=== PATIENT | female | born 1950 | race Caucasian/White ===

== ENCOUNTER 2016-09-10 08:54 | Emergency (ER) | payer BC ==
[2016-09-10 09:04] VITALS: BP 136/65; PULSE 63; RESP 18; TEMP 98.4
--- NOTE | 2016-09-10 09:13 | ED ---
Upper Extremity HPI - General Chief Complaint: Extremity Injury, Upper Stated Complaint: Fall Time Seen by Provider: 09/10/16 09:08 Source: patient, RN notes reviewed Mode of arrival: ambulatory Limitations: no limitations - History of Present Illness Initial Comments: 65-year-old female presents to the emergency department with a chief complaint of left wrist pain. Patient states that she tripped and fell on . Patient states that she fell onto an outstretched hand. Patient states she was in A home she is histrionic a sprain and then today started to hurt more over the radial aspect of the wrist. Patient states started to touch and movement. Patient denies any other injuries from the incident. Patient states he was a simple trip and fall there is no lightheadedness or dizziness before the fall. Patient states that she was concerned due to her worsening continued pain so she thought that she should be evaluated. Patient denies any recent fever, chills, shortness of breath, chest pain, back pain, abdominal pain, nausea vomiting, numbness or tingling, dysuria or hematuria, constipation or diarrhea, headaches or visual changes, or any other current symptoms. - Related Data Previous Rx's Medication Instructions Recorded Hydrocodone/Acetaminophen [Yeaddiss 1 each PO Q6HR PRN #20 tab 09/10/16 5-325] Allergies Allergy/AdvReac Type Severity Reaction Status Date / Time No Known Allergies Allergy Verified 09/10/16 09:04 Review of Systems ROS Statement: Those systems with pertinent positive or pertinent negative responses have been documented in the HPI. ROS Other: All systems not noted in ROS Statement are negative. Past Medical History Past Medical History: Hypertension, Thyroid Disorder History of Any Multi-Drug Resistant Organisms: None Reported Past Surgical History: Cholecystectomy, Hysterectomy Additional Past Surgical History / Comment(s): bilateral knee replacement, lap band, hip replacement Past Psychological History: No Psychological Hx Reported Smoking Status: Former smoker Past Alcohol Use History: None Reported Past Drug Use History: None Reported General Exam - General Exam Comments Initial Comments: General: The patient is awake and alert, in no distress, and does not appear acutely ill. Neck: The neck is supple, there is no tenderness. Cardiovascular: There is a regular rate and rhythm. No murmur, rub or gallop is appreciated. Respiratory: Lungs are clear to auscultation, respirations are non-labored, breath sounds are equal. No wheezes, stridor, rales, or rhonchi. Musculoskeletal: Sensation intact to plus pulses throughout left upper extremity. Patient's vital motion of left elbow and left hand. There is pain with flexion and extension of the left wrist and tenderness over the distal radial head. No antiviral snuffbox tenderness. No tenderness throughout the deformity noted. No skin trauma. Neurological: CN II-XII intact, There are no obvious motor or sensory deficits. Coordination appears grossly intact. Speech is normal. Skin: Skin is warm and dry and no rashes or lesions are noted. Psychiatric: Normal mood and affect. Limitations: no limitations Course Vital Signs 09/10/16 09:00 Temperature 98.4 F Pulse Rate 63 Respiratory 18 Rate Blood Pressure 136/65 O2 Sat by Pulse 99 Oximetry Procedures - Orthopedic Splinting/Casting Injury #1 Side: left Upper Extremity Injury Location: wrist Upper Extremity Immobilizer: volar splint (short arm) Medical Decision Making - Medical Decision Making 65-year-old female presents for left wrist pain after fall. This time patient does appear to have a distal radius fracture. Patient was placed in a splint. We gave follow Dortha we give pain medication return parameters. We discussed all the patient's family's questions. He stated he understood and agreed with the plan. They will be discharged home. - Radiology Data Radiology results: report reviewed, image reviewed Disposition Clinical Impression: Left radial fracture Disposition: HOME SELF-CARE Condition: Stable Instructions: Wrist Fracture in Adults (ED) Additional Instructions: Please use medication as discussed. Please follow up with family doctor if symptoms have not improved over the next two days. Please return to the emergency room if your symptoms increase or worsen or for any other concerns. Prescriptions: Hydrocodone/Acetaminophen [Yeaddiss 5-325] 1 each PO Q6HR PRN #20 tab PRN Reason: Pain Referrals: Raymundo Silvestre MD [Primary Care Provider] - 1-2 days Daniel Haney MD [Medical Doctor] - 1-2 days Time of Disposition: 09:43
--- NOTE | 2016-09-10 09:39 | XR ---
EXAMINATION TYPE: XR wrist complete LT DATE OF EXAM: 09/10/2016 9:30 AM COMPARISON: NONE HISTORY: 65-year-old female with fall on complaining of medial pain TECHNIQUE: 4 views FINDINGS: Single synovial calcifications about the carpus and also within the TFC. Findings may reflect CPPD. S ome soft tissue swelling about the wrist. There is subtle lucency seen at the articular surface of th e radial epiphysis on both the AP and oblique views. No other acute fracture or dislocation. Mild deg enerative change at the base of the thumb. IMPRESSION: Unable to exclude subtle nondisplaced intra-articular fracture of the radial epiphysis.
[2016-09-10] MEDS ORDERED: HYDROcodone/APAP 5-325MG 1 EACH TAB PO STA (09:44)
== END 2016-09-10 09:53 | disposition home or self-care (01) ==
LOC: EC 08:54
DX: S52.572A Other intraarticular fracture of lower end of left radius, initial encounter for closed fracture (principal); Z87.891 Personal history of nicotine dependence; W01.0XXA Fall on same level from slipping, tripping and stumbling without subsequent striking against object, initial encounter; Y92.009 Unspecified place in unspecified non-institutional (private) residence as the place of occurrence of the external cause
CPT/HCPCS: 29125; 99283

== ENCOUNTER 2016-12-09 09:55 | Emergency (ER) | payer BC, MEDICARE ==
[2016-12-09 10:05] VITALS: BP 138/72; PULSE 67; RESP 20; TEMP 98.3
--- NOTE | 2016-12-09 10:47 | ED ---
Lower Extremity Injury HPI - General Chief Complaint: Extremity Injury, Lower Stated Complaint: RT FOOT INJURY Time Seen by Provider: 12/09/16 10:11 Source: patient, RN notes reviewed Mode of arrival: ambulatory Limitations: no limitations - History of Present Illness Initial Comments: This is a 66-year-old female 2 day history of right ankle pain. She is not sure if she struck the ankle against something. She points to the dorsal aspect of the proximal foot and anterior ankle area. She states her hurts to push her foot out for. Back she has any history of gout was in her left wrist area she is on medication for this. She is taking Tylenol for the pain she states the pain is 8/10 she's had no fevers chills or sweats. She points to her relatively isolated area as the area of pain. No overt foot pain no medial or lateral malleolus pain no pain proximal to this area. - Related Data Home Medications Medication Instructions Recorded Confirmed Allopurinol [Zyloprim] 300 mg PO DAILY 12/09/16 12/09/16 Aspirin [Adult Low Dose Aspirin EC] 81 mg PO DAILY 12/09/16 12/09/16 Calcitriol 0.25 mcg PO DIRECTED 12/09/16 12/09/16 Cholecalciferol (Vitamin D3) 2,000 unit PO DAILY 12/09/16 12/09/16 [Vitamin D3] Cranactin 1 tab PO DAILY 12/09/16 12/09/16 Doxazosin [Cardura] 2 mg PO HS 12/09/16 12/09/16 Fluticasone Nasal [place] [Flonase 1 spray EA NOSTRIL DAILY PRN 12/09/16 12/09/16 Nasal [place]] Potassium Chloride [Klor-Con 20] 20 meq PO BID 12/09/16 12/09/16 Thyrostim 1 tab PO DAILY 12/09/16 12/09/16 Vit A/Vit C/Vit E/Zinc/Copper 1 cap PO DAILY 12/09/16 12/09/16 [ICAPS SOFTGEL] amLODIPine BESYLATE [Norvasc] 10 mg PO DAILY 12/09/16 12/09/16 buPROPion HCL [buPROPion HCL SR] 150 mg PO BID 12/09/16 12/09/16 Previous Rx's Medication Instructions Recorded Ketorolac [Toradol] 10 mg PO Q6HR #20 tab 12/09/16 Allergies Allergy/AdvReac Type Severity Reaction Status Date / Time No Known Allergies Allergy Verified 12/09/16 10:50 Review of Systems ROS Statement: Those systems with pertinent positive or pertinent negative responses have been documented in the HPI. ROS Other: All systems not noted in ROS Statement are negative. Past Medical History Past Medical History: Hypertension, Thyroid Disorder History of Any Multi-Drug Resistant Organisms: None Reported Past Surgical History: Cholecystectomy, Hysterectomy Additional Past Surgical History / Comment(s): bilateral knee replacement, lap band, hip replacement Past Psychological History: No Psychological Hx Reported Smoking Status: Former smoker Past Alcohol Use History: None Reported Past Drug Use History: None Reported General Exam - General Exam Comments Initial Comments: This is a well-developed well-nourished awake alert oriented 3 female Limitations: no limitations General appearance: alert, in no apparent distress Head exam: Present: atraumatic, normocephalic, normal inspection Eye exam: Present: normal appearance, PERRL, EOMI. Absent: scleral icterus, conjunctival injection, periorbital swelling Neck exam: Present: normal inspection Respiratory exam: Present: normal lung sounds bilaterally. Absent: respiratory distress, wheezes, rales, rhonchi, stridor Cardiovascular Exam: Present: regular rate, normal rhythm, normal heart sounds. Absent: systolic murmur, diastolic murmur, rubs, gallop, clicks Extremities exam: Present: tenderness, normal capillary refill, other ( Examination left lower extremity shows no acute findings the right lower extremity no obvious edema there is tenderness palpation of the anterior ankle joint over the tendon region. No step-off or crepitation no medial or lateral malleolus tenderness. No overt foot tenderness except over the mid proximal dorsal foot adjacent to the area above) Back exam: Present: normal inspection Neurological exam: Present: alert, oriented X3, CN II-XII intact Psychiatric exam: Present: normal affect, normal mood Skin exam: Present: warm, dry, intact, normal color Course Vital Signs 12/09/16 10:03 Temperature 98.3 F Pulse Rate 67 Respiratory 20 Rate Blood Pressure 138/72 O2 Sat by Pulse 99 Oximetry Procedures - Procedures Initial comment: I did place a short leg 4 x 30 posterior splint OCL on the patient. She had a good neurovascular exam afterwards she did feel improvement in her pain afterwards. Medical Decision Making - Medical Decision Making I did discuss findings with the patient. Patient does have pain in the axillary area with flexion and extension of the foot. Patient was placed on a posterior OCL with improvement in her pain. She will be placed on anti- inflammatories follow-up with orthopedics who she's seen before. the patient splint will be used for 1-2 days for comfort. Patient does have a walker at home. - Radiology Data Radiology results: report reviewed (I did review the imaging and report no acute fractures are seen. There is a area of calcinosis noted Anteriorly.), image reviewed Disposition Clinical Impression: Right ankle strain Disposition: HOME SELF-CARE Condition: Good Instructions: Ankle Sprain (ED) Prescriptions: Ketorolac [Toradol] 10 mg PO Q6HR #20 tab Referrals: Raymundo Silvestre MD [Primary Care Provider] - 1-2 days
[2016-12-09] MEDS ORDERED: ETODOLAC 400 MG TAB PO ONE (11:00)
--- NOTE | 2016-12-09 11:02 | XR ---
EXAMINATION TYPE: XR ankle complete RT DATE OF EXAM: 12/09/2016 COMPARISON: NONE HISTORY: Pain swelling TECHNIQUE: Three-view right ankle FINDINGS: Ankle mortise is intact. No acute fractures are evident. Calcaneal heel spurs are present. Mild soft tissue swelling may be over the lateral malleolus. IMPRESSION: 1. No acute osseous abnormality. 2. Mild soft tissue swelling lateral malleolus. 3. Follow-up exams can be performed 7-10 days from acute trauma for continued pain.
== END 2016-12-09 12:35 | disposition home or self-care (01) ==
LOC: EC 09:55
DX: S96.911A Strain of unspecified muscle and tendon at ankle and foot level, right foot, initial encounter (principal); E83.59 Other disorders of calcium metabolism; I10 Essential (primary) hypertension; E07.9 Disorder of thyroid, unspecified; M10.9 Gout, unspecified; Z87.891 Personal history of nicotine dependence; Z79.82 Long term (current) use of aspirin; Z79.899 Other long term (current) drug therapy; W22.8XXA Striking against or struck by other objects, initial encounter
CPT/HCPCS: 29515; 99283

== ENCOUNTER → 2017-07-31 | Outpatient (CLI) | payer MEDICARE ==
--- NOTE | 2017-08-01 12:03 | MM ---
Reason for exam: screening (asymptomatic). Last mammogram was performed 2 years and 1 month ago. History: Patient is postmenopausal and is nulliparous. Benign stereotactic core biopsy of the right breast, January 10, 2002. Core biopsy of the right breast. Physical Findings: A clinical breast exam by your physician is recommended on an annual basis and results should be correlated with mammographic findings. MG 3D Screening Mammo W/Cad Bilateral CC and MLO view(s) were taken. Prior study comparison: July 07, 2015, mammogram, performed at [facility]. January 02, 2015, mammogram, performed at [facility]. There are scattered fibroglandular densities. Previous mammotome biopsy in the right breast. There is chronic nodularity in the right breast. New 6mm circumscribed nodule anterior right upper outer quadrant. ASSESSMENT: Incomplete: need additional imaging evaluation, BI-RAD 0 RECOMMENDATION: Special view mammogram and ultrasound of the right breast. [facility] will attempt to contact patient to return for supplemental views and ultrasound.
== END | disposition home or self-care (01) ==
LOC: RADMAMWWP 13:23
PROVIDERS: ATTEND Family Medicine
DX: Z12.31 Encounter for screening mammogram for malignant neoplasm of breast (principal); Z80.3 Family history of malignant neoplasm of breast; Z98.82 Breast implant status
CPT/HCPCS: 77063; 77067

== ENCOUNTER → 2017-08-09 | Outpatient (CLI) | payer MEDICARE ==
--- NOTE | 2017-08-10 11:36 | MM ---
Reason for exam: additional evaluation requested from abnormal screening. Last mammogram was performed less than 1 month ago. History: Patient is postmenopausal and is nulliparous. Family history of breast cancer in mother at age 42. Benign stereotactic core biopsy of the right breast, January 10, 2002. Core biopsy of the right breast. Physical Findings: Nurse did not find any significant physical abnormalities on exam. MG 3D Work Up W/Cad RT LM view(s) were taken of the right breast. Prior study comparison: July 31, 2017, bilateral MG 3d screening mammo w/cad. July 07, 2015, mammogram, performed at [facility]. Finding: There is a 5 mm obscured oval mass located 3 cm from the nipple in the 11 o'clock upper outer quadrant of the right breast consistent with ultrasound findings. These results were verbally communicated with the patient and result sheet given to the patient on 08/09/17. ASSESSMENT: Probably benign, BI-RAD 3 RECOMMENDATION: Aspiration and ultrasound core biopsy of the right breast. Called Dr. Silvestre with mammographic findings and has scheduled an appointment for the patient for 09/06/17 at 2:[address] Coronado. Biopsy scheduled for 08/22/17 at 12:20. PRELIMINARY REPORT CALLED AND FAXED TO DR. CORONADO ON 08/10/17.
--- NOTE | 2017-08-10 11:38 | USB ---
Reason for exam: additional evaluation requested from abnormal screening. History: Patient is postmenopausal and is nulliparous. Family history of breast cancer in mother at age 42. Benign stereotactic core biopsy of the right breast, January 10, 2002. Core biopsy of the right breast. US Breast Workup Limited RT Right breast ultrasound demonstrates a 0.8 x 0.3 x 0.6cm oval, solid, hypoechoic lesion at 11 o'clock, possible complex cyst and nodes at axillary tail. Lymph nodes in axilla. These results were verbally communicated with the patient and result sheet given to the patient on 08/09/17. ASSESSMENT: Suspicious, BI-RAD 4 RECOMMENDATION: Aspiration and ultrasound core biopsy of the right breast. Called Dr. Silvestre with mammographic findings and has scheduled an appointment for the patient for 09/06/17 at 2:[address] Coronado. Biopsy scheduled for 08/22/17 at 12:20. PRELIMINARY REPORT CALLED AND FAXED TO DR. CORONADO ON 08/10/17.
== END | disposition home or self-care (01) ==
LOC: RADMAMWWP 13:33
PROVIDERS: ATTEND Family Medicine
DX: R92.8 Other abnormal and inconclusive findings on diagnostic imaging of breast (principal)
CPT/HCPCS: 77065; 76642; G0279

== ENCOUNTER → 2017-08-17 | Outpatient (CLI) | payer MEDICARE ==
--- NOTE | 2017-08-17 14:32 | BD ---
EXAMINATION TYPE: MG DEXA axial skeleton. DATE OF EXAM: 08/17/2017 COMPARISON: 2004 CLINICAL HISTORY: Postmenopausal female. Osteoporosis screening. Height: 5 FT 4 1/2 IN Weight: 218 FRAX RISK QUESTIONS: Alcohol (3 or more units per day): NO Family History (Parent hip fracture): NO Glucocorticoids (More than 3mos): NO (Ex: prednisone, prednisolone, methylprednisolone, dexamethasone, and hydrocortisone). History of Fracture in Adulthood: NO Secondary Osteoporosis: 1. Type 1 Diabetes: NO 2. Hyperthyroidism: NO 3. Menopause before 45: YES 4. Malnutrition: NO 5. Chronic liver disease: NO Rheumatoid Arthritis: NO Current Tobacco Use: NO RISK FACTORS HISTORY OF: Surgery to Spine/Hip(right/left)/Wrist (right/left): LT HIP REPLACED When: 2009 Family History of Osteoporosis: YES Active: YES Postmenopausal woman: TOTAL HYST AGE 39 MEDICATIONS: Additional Medications: WELLBUTRIN, BLOOD PRESSURE MEDS X 2 , ANXIETY PILL, Additional History: EXAM MEASUREMENTS: Bone mineral densitometry was performed using the VeriTran System. Bone mineral density as measured about the Lumbar spine is: ----- L1-L4(G/cm2): 1.209 T Score Values are as follows: ----- L2: -0.3 ----- L3: 0.1 ----- L4: 0.5 ----- L1-L4: 0.2 Bone mineral density has: DECREASED -3.3 % since study of: 2004 Bone mineral density about the R hip (g/cm2): 0.786 Bone mineral density about the L hip (g/cm2): T Score values are as follows: -----R Neck: -1.8 -----R Total: -0.6 Bone mineral density has: DECREASED -14.4 % since study of: 2004 IMPRESSION: Osteopenia (T Score between -2.5 and -1). There is slightly increased risk of fracture and the patient may be considered for treatment. Re-Screen 2-5 years. NOTE: T-SCORE=SD OF THE YOUNG ADULT MEAN.
== END | disposition home or self-care (01) ==
LOC: RADBDWWP 07:41
PROVIDERS: ATTEND Family Medicine
DX: M85.80 Other specified disorders of bone density and structure, unspecified site (principal); Z78.0 Asymptomatic menopausal state
CPT/HCPCS: 77080

== ENCOUNTER → 2017-08-22 | Day surgery (SDC) | payer MEDICARE ==
[2017-08-22 11:36] VITALS: RESP 16; BMI 36.1
[2017-08-22 12:53] VITALS: BP 129/66; PULSE 50; TEMP 97.6
--- NOTE | 2017-08-22 13:12 | USB ---
EXAMINATION TYPE: US biopsy breast VAD RT, MG diagnostic mammo RT wo CAD DATE OF EXAM: 08/22/2017 CLINICAL HISTORY: R92.8 ABN MAMMO. Abnormal ultrasound TECHNIQUE: Ultrasound guided core biopsy of right breast with clip placement and follow-up two-view mammogram. COMPARISON: Right breast mammogram and ultrasound August 09, 2017 and older studies. FINDINGS: The procedure of ultrasound guided core biopsy was explained to the patient. Benefits, alternatives, and risks were discussed. An informed consent was then obtained. The patient was placed in supine positioning for imaging and for the procedure. Preprocedure imaging redemonstrates oval wider greater than tall heterogeneous hypoechoic lesion measuring 8 mm long access 11:00 position zone A in the right breast. The overlying skin was prepped and draped in usual sterile fashion. Lidocaine buffered with bicarbonate was used as anesthetic into the skin and subcutaneous tissue up to area of concern in the right breast. Under ultrasound guidance, a 12-gauge vacuum assisted biopsy gun device was used to obtain 3 core samples. Following this, a biopsy clip was left in lesion. The patient tolerated the procedure well without any immediate complication. The patient was kept in the radiology department for short stay after the procedure and then discharged home in stable condition. Postprocedure mammogram shows successful deployment of clip in the right breast which appears to correspond to area of clinical concern on recent mammograms. IMPRESSION: Successful, uncomplicated ultrasound guided core biopsy of area of concern in the right breast, full pathology results to follow. Low to intermediate index of suspicion noted at time of procedure. Pathology Results: Benign Follow up ultrasound of the right breast in 6 months. SIA
== END ==
LOC: RADUSWWP 11:06
PROVIDERS: ATTEND Surgery
DX: D24.1 Benign neoplasm of right breast (principal); R92.8 Other abnormal and inconclusive findings on diagnostic imaging of breast
CPT/HCPCS: 88305; 77065; 19083; A4648; J2001

== ENCOUNTER → 2017-11-25 | Outpatient (CLI) | payer MEDICARE ==
--- NOTE | 2017-11-25 19:52 | XR ---
EXAMINATION TYPE: XR Hip Complete RT DATE OF EXAM: 11/25/2017 COMPARISON: None HISTORY: Pain TECHNIQUE: 2 view right hip FINDINGS: There is narrowing of the joint space. The femoral head articulates with the acetabulum. N o acute fractures are evident. IMPRESSION: 1. Mild degenerative changes right hip
--- NOTE | 2017-11-26 15:06 | CT ---
EXAMINATION TYPE: CT lumbar spine wo con DATE OF EXAM: 11/25/2017 COMPARISON: None HISTORY: Patient complains of low back pain with radiation to the right leg. CT DLP: 956 mGycm CONTRAST: None TECHNIQUE: CT of the lumbar spine is performed on a spiral scan at 3 mm thick sections. Reconstructed images are performed in the coronal and sagittal planes. FINDINGS: T12-L1: Vacuum disc phenomenon is present to the disc level. The disc space is narrowed. No focal dis c herniation or significant disc bulge is evident. No spinal canal stenosis or neural foraminal steno sis. L1-L2: Mild disc bulging is anterior thecal sac contact. No AP spinal canal stenosis or neural forami nal stenosis is present L2-L3: Broad-based disc bulge has mild to moderate anterior thecal sac compression. Ligamentum flavum laxity and mild facet hypertrophy is present. Neural foramen are patent. No spinal canal stenosis is present by measurement criteria despite the spinal canal narrowing. L3-L4: Broad-based disc bulge has moderate anterior thecal sac compression. Facet hypertrophy and lig amentum flavum laxity is posterior lateral thecal sac compression. No AP spinal canal stenosis is pre sent. Mild foraminal narrowing is present. Some spinal canal narrowing posterior to the superior endp late of L4 may be present. L4-L5: Broad-based disc bulge which may has some hard disc material has moderate anterior thecal sac compression. Facet hypertrophy and ligamentum flavum laxity is present. Some mild spinal canal narrow ing is present to this level. Neural foramen are mildly narrowed. L5-S1: There is loss of disc height to this level. Endplate spurring has mild anterior thecal sac com pression. Bilateral foraminal narrowing is present. Mild facet hypertrophy is present. No spinal elis l stenosis is present. Vertebral alignment appears normal. Disc space narrowing is present L5-S1 as well as T12-L1. Vacuum j oint space phenomenon is present at sacroiliac joints bilaterally. IMPRESSION: 1. Broad-based disc bulge contributing to spinal canal narrowing without stenosis L2-3. 2. L3-4 disc bulging contributing to spinal canal narrowing without stenosis. 3. Spinal canal narrowing secondary to facet hypertrophy, ligamentum flavum laxity, and moderate disc bulging L4-5. 4. Multilevel degenerative disc changes, greatest at L5-S1. 5. Degenerative Facet hypertrophy with ligamentum flavum laxity discussed above.
== END | disposition home or self-care (01) ==
LOC: RADCTMAIN 10:53
PROVIDERS: ATTEND Family Medicine
DX: M48.061 Spinal stenosis, lumbar region without neurogenic claudication (principal); M51.26 Other intervertebral disc displacement, lumbar region; M51.37 Other intervertebral disc degeneration, lumbosacral region; M47.816 Spondylosis without myelopathy or radiculopathy, lumbar region; M24.28 Disorder of ligament, vertebrae
CPT/HCPCS: 72131; 73502

== ENCOUNTER → 2018-02-22 | Outpatient (CLI) | payer MEDICARE ==
--- NOTE | 2018-02-23 08:44 | USB ---
Reason for exam: follow-up at short interval from prior study. History: Patient is postmenopausal and is nulliparous. Family history of breast cancer in mother at age 42. Benign US biopsy breast VAD RT of the right breast, August 22, 2017. Benign stereotactic core biopsy of the right breast, January 10, 2002. Core biopsy of the right breast. Physical Findings: Nurse did not find any significant physical abnormalities on exam. US Breast RT Right complete breast ultrasound includes all four quadrants, the retroareolar region and axilla. Finding demonstrates a 0.4 x 0.3 x 0.5cm fibroadenoma by biopsy at 11 o'clock and axilla lymph nodes. These results were verbally communicated with the patient and result sheet given to the patient on 02/22/18. ASSESSMENT: Benign, BI-RAD 2 RECOMMENDATION: Return to routine screening mammogram schedule for both breasts. Back on schedule.
== END ==
LOC: RADUSWWP 15:06
PROVIDERS: ATTEND Family Medicine
DX: R92.8 Other abnormal and inconclusive findings on diagnostic imaging of breast (principal)

== ENCOUNTER → 2018-03-12 | Outpatient (CLI) | payer MEDICARE ==
--- NOTE | 2018-03-12 22:11 | MR ---
EXAMINATION TYPE: MR lumbar spine wo con DATE OF EXAM: 03/12/2018 COMPARISON: Previous lumbar MRI dated 06/15/2009 HISTORY: Radiculopathy, lumbar region TECHNIQUE: Multiplanar, multisequence images of the lumbar spine were acquired. L1-L2: Posterior broad-based disc bulge causes mild anterior mass effect on the thecal sac. Facet art hropathy with hypertrophy ligamentum flavum causes some mass effect posterior laterally on the thecal sac. Foraminal encroachment is present greater than left than on the right. L2-L3: Broad-based posterior disc bulge causes anterior mass effect on the thecal sac. Facet arthropa thy with hypertrophy ligamentum flavum results in a trefoil appearance of the thecal sac. No signific ant central stenosis or foraminal encroachment. L3-L4: Facet arthropathy with hypertrophy ligamentum flavum causes posterior lateral mass effect on t he thecal sac. Circumferential disc bulge results in some mild foraminal encroachment bilaterally. No significant central stenosis. L4-L5: Facet arthropathy with hypertrophy ligamentum flavum causes posterior lateral mass effect on t he thecal sac, trefoil appearance of the thecal sac. Circumferential extension of endplate disc compl ex results in foraminal encroachment right greater than left, there is mild anterior mass effect on t he thecal sac. L5-S1: Eccentric disc bulge, endplate disc complex towards the right causes anterolateral mass effect on the thecal sac, circumferential extension results in foraminal encroachment bilaterally right gre ater than left. No significant central stenosis. Facet arthropathy is noted. Lumbar segments are intact. No paraspinal masses are identified. Conus medullaris has a normal appe arance. There is a mild spinal curvature present. Minimal anterolisthesis grade 1 L3-4, retrolisthesi s grade 1 L4-5, L2-3 and L1-2. Loss of disc height signal is present at intervertebral levels, there is multilevel spondylosis with endplate discogenic marrow signal change. Vacuum phenomenon present at L5-S1. IMPRESSION: Degenerative disc disease, facet arthropathy, neural foraminal encroachment and scoliosis.
== END | disposition home or self-care (01) ==
LOC: RADMRIMAIN 12:48
PROVIDERS: ATTEND Family Medicine
DX: M51.36 Other intervertebral disc degeneration, lumbar region (principal); M46.96 Unspecified inflammatory spondylopathy, lumbar region; M41.86 Other forms of scoliosis, lumbar region
CPT/HCPCS: 72148

== ENCOUNTER 2018-04-03 07:45 | Day surgery (SDC) | payer MEDICARE ==
[2018-03-30 11:21] VITALS: BMI 34.7
[~2018-04-03 07:45] MED LIST: SODIUM CHLORIDE 0.9% 500 ML 500 ML IV SCH
[2018-04-03 09:11] VITALS: RESP 16; TEMP 97.6
[2018-04-03] MEDS ORDERED: LACTATED RINGERS 1,000 ML IV ONE (09:16)
[2018-04-03] MEDS ORDERED: LIDOCAINE 1% 20 ML VIAL (10MG/ML) FOR IV START INTRADERMA ONE (09:17)
--- NOTE | 2018-04-03 09:49 | P.CONS ---
History of Present Illness - Reason for Consult Consult date: 04/03/18 - Chief Complaint Lower back and legs pain - History of Present Illness This is a 67-year-old female with history of chronic lower back pain with radiation to both knees bilaterally. The patient denies any numbness or tingling in the lower extremities or any weakness. She also denies any bowel or bladder dysfunction. This pain occasionally wakes her up at night. The pain gets worse by walking and prolonged activities and improved by sitting down. The patient uses only Tylenol as needed for this pain. She denies having any back surgeries previously. She did try physical therapy long time ago with limited benefits. She had a lumbar spine MRI which showed disc degeneration and bulging at the lower levels of her lumbar spine. The patient was referred to us by Dr. May for a trial of lumbar epidural steroid injection. Past Medical History Past Medical History: Hypertension, Rheumatoid Arthritis (RA), Thyroid Disorder Additional Past Medical History / Comment(s): Gout History of Any Multi-Drug Resistant Organisms: None Reported Past Surgical History: Bariatric Surgery, Cholecystectomy, Hysterectomy, Joint Replacement Additional Past Surgical History / Comment(s): bilateral knee replacement, lap band, LT hip replacement Past Anesthesia/Blood Transfusion Reactions: No Reported Reaction Smoking Status: Former smoker - Past Family History Mother Family Medical History: Cancer, Pulmonary Embolus Father Family Medical History: Cancer Medications and Allergies Home Medications Medication Instructions Recorded Confirmed Type Calcitriol 0.25 mcg PO SUTUTHSA 12/09/16 04/03/18 History Doxazosin [Cardura] 2 mg PO HS 12/09/16 04/03/18 History Potassium Chloride [Klor-Con 20] 20 meq PO BID 12/09/16 04/03/18 History buPROPion HCL [buPROPion HCL SR] 150 mg PO BID 12/09/16 04/03/18 History Bisoprol/Hydrochlorothiazide 1 tab PO DAILY 08/14/17 04/03/18 History [Bisoprolol-Hctz 10-6.25 mg Tab] Levothyroxine Sodium [Synthroid] 50 mcg PO DAILY 03/30/18 04/03/18 History risperiDONE [RisperDAL] 0.5 mg PO BID 03/30/18 04/03/18 History Allergies Allergy/AdvReac Type Severity Reaction Status Date / Time No Known Allergies Allergy Verified 03/30/18 11:15 Physical Exam Vitals: Vital Signs Temp Pulse Resp BP Pulse Ox 04/03/18 09:08 97.6 F 58 L 16 155/78 99 - Constitutional General appearance: obese - EENT Eyes: PERRLA - Respiratory Respiratory: bilateral: CTA - Cardiovascular Rhythm: regular - Neurologic Neuro exam of the lower extremities showed normal and symmetrical muscle strength Straight leg raising test negative bilaterally Dylan's test negative bilaterally Internal and external rotation of the right hip joint did not elicit any pain She has significant tenderness around the right sacroiliac joint Neurologic: CNII-XII intact - Psychiatric Psychiatric: A&O x's 3 Assessment and Plan Plan: This is a 67-year-old pleasant lady with the following diagnoses ; Lumbar degenerative disc disease Lumbar spondylosis without myelopathy Right sacroiliitis Hypertension and hypercholesterolemia The patient would get lumbar epidural steroid injection at the L4 5 level today I will do 2 procedures 2 weeks apart. She might also be a candidate for right sacroiliac joint steroid injection under fluoroscopic guidance in the future if her pain does not get better in her lower back. I thank you Dr. May for the referral
--- NOTE | 2018-04-03 10:02 | P.PCN ---
Date of Procedure: 04/03/18 Surgeon: Maykel Mosley Pathology: none sent Condition: stable Disposition: PACU Description of Procedure: PREOPERATIVE DIAGNOSIS: 1-Lumbar radiculopathy 2- Lumber Degenerative Disc Diseases. POSTOPERATIVE DIAGNOSIS: 1-Lumbar radiculopathy. 2-Lumbar Degenerative Disc Diseases PROCEDURE 1. Lumbar epidural steroid injection under fluoroscopic guidance at the L4-5 level, In the right paramedian approach 2. Lumbar epidurogram. ANESTHESIA: Local with 1% lidocaine; and IV moderate conscious sedation with Versed1 mg and fentanyl 50 mcg EBL: Minimal PROCEDURE INDICATION: The patient with low back pain and radiculitis symptoms unresponsive to conservative treatment. Fluoroscopy was used to optimize visualization of the needle placement and to maximize safety. PROCEDURE DESCRIPTION / TECHNIQUE: The patient was seen and identified in the preoperative area. Risks, benefits , complications including but not limited to infections ,bleeding ,allergic reaction to the medications ,nerve damage and not complete pain relief , and alternatives were discussed with the patient. The patient agreed to proceed with the procedure and signed the consent. IV was started, and vital signs were stable. Patient was taken to the OR and time out was completed. The patient was placed in the prone position on procedure table and a pillow was placed under the abdomen to reduce lumbar lordosis. The lumbosacral area was prepped and draped in the usual sterile fashion with ChloraPrep.Patient was closely monitored during the procedure. Conscious sedation was used during the procedure to decrease patients anxiety. Vital signs were monitered during the entire procedure. Using anterior-posterior fluoroscopy, the L4-5 interlaminar space was identified and the skin over this site was marked and then infiltrated with 1% lidocaine subcutaneously. Subsequently, a 20-gauge Tuohy epidural needle was inserted and advanced toward the epidural space using the Loss of resistance to air technique and guided by AP and lateral fluoroscopy. The correct needle position in the epidural space was verified with the injection of 1 mL of the water soluble contrast dye Omnipaque 180 contrast and observing an excellent epidurogram with the epidural spread of the dye, after negative aspiration for blood and CSF and in the absence of paresthesias. Again after negative aspiration, a 8 ml mixture containing 80 mg of Kenalog and 5 ml of preservative free Normal Saline, and 2 ml of preservative free ropivacaine 0.5% solution was injected and a washout of epidurogram was seen. Needle was withdrawn intact, skin was cleansed, and bandages were applied. patient tolerated procedure well and was transferred to PACU in stable condition. COMPLICATIONS: None
[2018-04-03] MEDS ORDERED: IV FLUID CONTINUATION 500 ML IV ONE (10:08)
[2018-04-03 10:33] VITALS: BP 115/66; PULSE 57
--- NOTE | 2018-04-03 10:57 | FL ---
Fluoroscopy INDICATION: Pain FINDINGS: Fluoroscopy time: 5 seconds. Images obtained: 2. IMPRESSIONS: 1. Documentation of fluoroscopy.
== END 2018-04-03 11:02 | disposition home or self-care (01) ==
LOC: ORPAIN 07:45
PROVIDERS: ATTEND Anesthesiology
DX: G89.29 Other chronic pain (principal); M51.16 Intervertebral disc disorders with radiculopathy, lumbar region; M47.26 Other spondylosis with radiculopathy, lumbar region; M46.1 Sacroiliitis, not elsewhere classified; I10 Essential (primary) hypertension; E78.00 Pure hypercholesterolemia, unspecified; F41.9 Anxiety disorder, unspecified; M06.9 Rheumatoid arthritis, unspecified; E07.9 Disorder of thyroid, unspecified; M10.9 Gout, unspecified; Z96.653 Presence of artificial knee joint, bilateral; Z96.642 Presence of left artificial hip joint; Z98.84 Bariatric surgery status; Z79.82 Long term (current) use of aspirin; Z79.890 Hormone replacement therapy; Z79.899 Other long term (current) drug therapy; Z90.49 Acquired absence of other specified parts of digestive tract; Z90.710 Acquired absence of both cervix and uterus; Z87.891 Personal history of nicotine dependence
CPT/HCPCS: 62323; J2250; J3301; J3010; Q9966

== ENCOUNTER 2018-04-26 07:14 | Day surgery (SDC) | payer MEDICARE ==
[2018-04-19 10:48] VITALS: BMI 34.7
[2018-04-26] MEDS ORDERED: LIDOCAINE 1% 20 ML VIAL (10MG/ML) FOR IV START INTRADERMA ONE (07:45)
[2018-04-26 07:57] VITALS: RESP 18; TEMP 98
[2018-04-26] MEDS ORDERED: LACTATED RINGERS 1,000 ML IV ONE (07:58)
--- NOTE | 2018-04-26 08:53 | P.PCN ---
Date of Procedure: 04/26/18 Procedure(s) Performed: PREOPERATIVE DIAGNOSIS: 1- Lumbar Degenerative Disc Diseases 2-Lumbar radiculopathy. POSTOPERATIVE DIAGNOSIS: 1-Lumber Degenerative Disc Diseases 2-Lumbar radiculopathy. PROCEDURE 1. Lumbar epidural steroid injection under fluoroscopic guidance at the L4-5 level. 2. Lumbar epidurogram. ANESTHESIA: Local with 1% lidocaine 3 ml and , moderate sedation with intravenous Versed 1 mg ,and fentanyle 50 Mcg EBL: Minimal PROCEDURE INDICATION: The patient with low back pain and radiculitis symptoms unresponsive to conservative treatment. Fluoroscopy was used to optimize visualization of the needle placement and to maximize safety. PROCEDURE DESCRIPTION / TECHNIQUE: The patient was seen and identified in the preoperative area. Risks, benefits , complications including but not limited to infections ,bleeding ,allergic reaction to the medications ,nerve damage and not complete pain releife , and alternatives were discussed with the patient. The patient agreed to proceed with the procedure and signed the consent. IV was started, and vital signs were stable. Patient was taken to the OR and time out was completed. The patient was placed in the prone position on procedure table and a pillow was placed under the abdomen to reduce lumbar lordosis. The lumbosacral area was prepped and draped in the usual sterile fashion.ere closely monitored during the procedure. Conscious sedation was used during the procedure to decrease patients anxiety. Vital signs was monitered during the entire procedure. Using anterior-posterior fluoroscopy, the L4-5 interlaminar space was identified and the skin over this site was marked and then infiltrated with 1% lidocaine subcutaneously. Subsequently, a 20-gauge Tuohy epidural needle was inserted and advanced toward the epidural space using the ``Loss of resistance technique and guided by AP and lateral fluoroscopy. The correct needle position in the epidural space was verified with the injection of 2 mL of the water soluble contrast dye Isovue 200 contrast and observing an excellent epidurogram with the epidural spread of the dye, after negative aspiration for blood and CSF and in the absence of paresthesias. Again after negative aspiration, a 6 ml mixture containing 80 mg of Depo-medrol , and 2 ml of preservative free Normal Saline, and 2 ml of preservative free lidocaine 1% solution was injected and a washout of epidurogram was seen. Needle was withdrawn intact, skin was cleansed, and bandages were applied. COMPLICATIONS: None DISPOSITION / PLANS: The patient was placed in a supine position and transferred to the recovery area in a stable condition for observation. There was no evidence of lower extremity motor or sensory deficit after the procedure. Patient was discharged from the recovery room after meeting discharge criteria. Home discharge instructions were given to the patient by the staff. The patient was reexamined prior to discharge. The patient will schedule a follow up in the clinic in 2-4 weeks.
[2018-04-26 09:00] VITALS: PULSE 51
--- NOTE | 2018-04-26 09:19 | FL ---
EXAMINATION TYPE: FL guided pain mgmt statistic DATE OF EXAM: 04/26/2018 HISTORY: Pain 17 SEC FLUORO, 1 IMAGE SCANNED
[2018-04-26] MEDS ORDERED: IV FLUID CONTINUATION 1,000 ML IV ONE (09:22)
[2018-04-26 09:24] VITALS: BP 124/74
== END 2018-04-26 09:28 | disposition home or self-care (01) ==
LOC: ORPAIN 07:14
PROVIDERS: ATTEND Specialist
DX: M51.16 Intervertebral disc disorders with radiculopathy, lumbar region (principal); I10 Essential (primary) hypertension; M10.9 Gout, unspecified; Z79.82 Long term (current) use of aspirin
CPT/HCPCS: 62323; J2250; J1030; J3010; Q9966

== ENCOUNTER 2018-10-18 09:46 | Inpatient (IN) | payer MEDICARE ==
[2018-10-18 10:25] VITALS: RESP 15
[2018-10-18] MEDS ORDERED: Acetaminophen-Codeine 300-30mg TAB PO PRN (13:15)
[2018-10-18] MEDS ORDERED: CALCITRIOL 0.25 MCG CAP PO SCH (13:15)
[2018-10-18 15:18] VITALS: BP 108/69; PULSE 72; TEMP 97.6
--- NOTE | 2018-10-18 15:58 | P.PAINCN ---
History of Present Illness - Reason for Consult Consult date: 10/18/18 - History of Present Illness This is 67-year-old female with a chronic history of severe low back pain, patient diagnosed with lumbar degenerative disc disease and lumbar spondylosis, reversibly we have done lumbar epidural steroid injections 2, and patient had partial benefit from it, currently she is admitted to [facility] because of intractable low back pain, patient denies any motor or sensory deficit she denies any fever or night sweats and she had no motor or sensory deficit, but she feels that her leg is weaker because of the pain, she is currently on Tylenol No. 3 twice a day (even though it was prescribed every 6 hours but she is concerned about the addiction ) and also she is on Lyrica 75 mg twice a day, she denies any side effect of the medication, she denies any excessive drowsiness or sleepiness Past Medical History Past Medical History: Hypertension, Rheumatoid Arthritis (RA), Thyroid Disorder Additional Past Medical History / Comment(s): Gout History of Any Multi-Drug Resistant Organisms: None Reported Past Surgical History: Bariatric Surgery, Cholecystectomy, Hysterectomy, Joint Replacement Additional Past Surgical History / Comment(s): bilateral knee replacement, lap band, LT hip replacement, PAIN CLINIC PROCEDURE Past Anesthesia/Blood Transfusion Reactions: No Reported Reaction Past Psychological History: Depression Smoking Status: Former smoker Past Alcohol Use History: Rare Additional Past Alcohol Use History / Comment(s): QUIT SMOKING 30 YEARS AGO Past Drug Use History: None Reported - Past Family History Mother Family Medical History: Cancer, Pulmonary Embolus Father Family Medical History: Cancer Medications and Allergies Home Medications Medication Instructions Recorded Confirmed Type Calcitriol 0.25 mcg PO SUTUTHSA 12/09/16 10/18/18 History Potassium Chloride [Klor-Con 20] 20 meq PO BID 12/09/16 10/18/18 History buPROPion HCL [buPROPion HCL SR] 150 mg PO BID 12/09/16 10/18/18 History Bisoprol/Hydrochlorothiazide 1 tab PO BID 08/14/17 10/18/18 History [Bisoprolol-Hctz 10-6.25 mg Tab] Levothyroxine Sodium [Synthroid] 50 mcg PO DAILY 03/30/18 10/18/18 History Acetaminophen-Codeine 300-30mg 1 tab PO QID PRN 10/18/18 10/18/18 History [Tylenol w/codeine #3] Cyclobenzaprine [Flexeril] 5 mg PO BID 10/18/18 10/18/18 History Doxazosin [Cardura] 1 mg PO DAILY 10/18/18 10/18/18 History Pregabalin [Lyrica] 75 mg PO BID 10/18/18 10/18/18 History predniSONE See Taper PO DIRECTED 10/18/18 10/18/18 History Allergies Allergy/AdvReac Type Severity Reaction Status Date / Time No Known Allergies Allergy Verified 10/18/18 11:50 Physical Exam Vitals: Vital Signs Temp Pulse Resp BP Pulse Ox 10/18/18 15:03 97.6 F 72 15 108/69 100 10/18/18 10:13 97.7 F 54 L 15 150/75 99 Intake and Output 10/18/18 10/18/18 10/18/18 06:59 14:59 22:59 Other: Weight 104.901 kg Physical Examinations : -Constitutiona : Cooperative , not in acute distress . -HEENT : nech ; supple , no Lymphadenopathy , normal thyroid size . eyes : no ptosis , no icterus, no photophobia . ENT : normal of hearing , normal oropharynx , no Thrush . - Respiratory : Chest clear to auscultations Bilaterally , no wheezing , no Rhonchi . - Cardiovascula : regular rate and rhythem , S1 , S2 , no S3 , no S4. - Gastrointestina : abdomen soft no tenderness , bowel sounds , no organomegally . - Genitourinary : Defferred . - neurologic : Cranial nerve II to XII intact , no focal neurological deffecit . -psychatric : alert , oriented X 3 , appropriate affect , intact judgment and insight . -Lymphatic : no Lymphadenopathy . - musculoskeltal : Lumber spine moter stegnth lower extremities ,thigh and legs 5/5 Right side , 5/5 Left side deep tendon reflexes : normal Knee Jerk , normal ankle Jerk positive lumber facet Loading Test Range of motion of the lumbar spine Flexion 30 degrees, extension 10 degrees strait leg raising test , positive at 45 degree Fabere test positive RT and positive LT . Sever tenderness over the Sacroiliac joint on the R and L sides Results Comments: MRI of the lumbar spine showed multilevel lumbar degenerative disc disease and multilevel lumbar facet arthropathy Assessment and Plan Plan: Assessment and plan= low back pain secondary to multifactorial causes lumbar degenerative disc disease ,and lumbar spondylosis with lumbar facet arthropathy. Patient had partial short-term benefit from lumbar epidural steroid injection x2 . The patient can benefit from diagnostic medial branch block lumbar area at L34/L4 5/L5-S1 on possible RFA of the medial branch lumbar area, this procedure can be done as an outpatient. Patient could benefit from increasing the frequency of Tylenol #3 to every 6 hours , I'm recommend to continue Lyrica 75 mg twice a day Time with Patient: Greater than 30 PQRS Measure Charge Sheet Measure #130: Documentation of Current Meds in Medical Chart: Patient's medications documented in chart PQRS Narrative: Smoking Status Former smoker Blood Pressure [Right Arm] 108/69 Home Medications: Ambulatory Orders Calcitriol 0.25 mcg PO SUTUTHSA 12/09/16 Potassium Chloride [Klor-Con 20] 20 meq PO BID 12/09/16 buPROPion HCL [buPROPion HCL SR] 150 mg PO BID 12/09/16 Bisoprol/Hydrochlorothiazide [Bisoprolol-Hctz 10-6.25 mg Tab] 1 tab PO BID 08/14/17 Levothyroxine Sodium [Synthroid] 50 mcg PO DAILY 03/30/18 Acetaminophen-Codeine 300-30mg [Tylenol w/codeine #3] 1 tab PO QID PRN 10/18/18 Cyclobenzaprine [Flexeril] 5 mg PO BID 10/18/18 Doxazosin [Cardura] 1 mg PO DAILY 10/18/18 Pregabalin [Lyrica] 75 mg PO BID 10/18/18 predniSONE See Taper PO DIRECTED 10/18/18
[2018-10-18] MEDS ORDERED: methylPREDNISolone SOD SUCCI 125 MG/2 ML VIAL IV SCH (16:00)
[2018-10-18] MEDS ORDERED: INSULIN ASPART (NovoLOG) 100 UNIT/ML VIAL SQ SCH (17:30)
[2018-10-18] MEDS ORDERED: BISOPROLOL-HCTZ 10-6.25 MG 1 EACH TAB PO SCH (21:00)
[2018-10-18] MEDS ORDERED: buPROPion SR 150 MG TABLET.ER PO SCH (21:00)
[2018-10-18] MEDS ORDERED: PREGABALIN 75 MG CAP PO SCH (21:00)
[2018-10-18] MEDS ORDERED: CYCLOBENZAPRINE 5 MG TAB PO SCH (21:00)
[2018-10-19] MEDS ORDERED: LEVOTHYROXINE 50 MCG TAB PO SCH (06:30)
[2018-10-19] MEDS ORDERED: DOXAZOSIN 1 MG TAB PO SCH (09:00)
--- NOTE | 2018-10-19 15:07 | HP ---
HISTORY AND PHYSICAL A 67-year-old white female who presented with acute lumbar disc herniation, failing outpatient treatment. She is admitted for epidural injection and IV Solu-Medrol 24 hours due to inability to ambulate or due to leg weakness and falls, and severe pain. She has history of epidurals in the past and severely bad spine. She is possibly going to get a neurosurgical consult for surgery soon. PAST MEDICAL HISTORY: Hypertension, rheumatoid arthritis, hypothyroidism, bariatric surgery, cholecystectomy, hysterectomy, joint replacement. SOCIAL HISTORY: Former smoker, quit 30 years ago. FAMILY HISTORY: Mother with cancer, pulmonary embolism. HOME MEDICATIONS: Bisoprolol hydrochlorothiazide, levothyroxine, Tylenol 3, Flexeril, Cardura, Lyrica, prednisone, calcitriol, Klor-Con. ALLERGIES: Negative. Temp 97.6, pulse 54-72, respiratory rate 16 to 18, blood pressure 108 to 150/69 to 75, O2 is 99-100%. Straight leg raise 30-45 degrees bilaterally. Limited flexion. Decreased patellar reflexes. Lungs are clear. Regular rate and rhythm. Abdomen is soft. Psych, fair mood and affect, appears anxious. Neurologically alert and oriented x3. Lumbar disc disease with arthritis and spondylosis and disc herniation. Epidural shots, IV steroids, await Pain Clinic. MMODL / IJN: [id number] /
== END 2018-10-18 10:10 | disposition home or self-care (01) | DRG 552 ==
LOC: 4SSUR 10:02
PROVIDERS: ADMIT Family Medicine; ATTEND Family Medicine
DX: M51.26 Other intervertebral disc displacement, lumbar region (principal); E03.9 Hypothyroidism, unspecified; I10 Essential (primary) hypertension; M06.9 Rheumatoid arthritis, unspecified; Z80.9 Family history of malignant neoplasm, unspecified; Z87.891 Personal history of nicotine dependence; Z90.710 Acquired absence of both cervix and uterus; E07.9 Disorder of thyroid, unspecified; Z90.49 Acquired absence of other specified parts of digestive tract; Z96.60 Presence of unspecified orthopedic joint implant; Z98.84 Bariatric surgery status; Z96.642 Presence of left artificial hip joint; Z79.890 Hormone replacement therapy; Z79.899 Other long term (current) drug therapy

== ENCOUNTER 2018-10-30 06:40 | Day surgery (SDC) | payer MEDICARE ==
[2018-10-23 10:43] VITALS: BMI 37.8
[~2018-10-30 06:40] MED LIST changes: +LACTATED RINGERS 1,000 ML IV SCH; -SODIUM CHLORIDE 0.9% 500 ML 500 ML IV SCH
[2018-10-30 07:07] VITALS: TEMP 97.6
[2018-10-30] MEDS ORDERED: LIDOCAINE 1% 20 ML VIAL (10MG/ML) FOR IV START INTRADERMA ONE (07:12)
--- NOTE | 2018-10-30 07:46 | P.PCN ---
Date of Procedure: 10/30/18 Procedure(s) Performed: PREOPERATIVE DIAGNOSIS : 1- Lumbar spondylosis with Facet Arthropathy without myelopathy . 2- Lumber degenerative disc disease POSTOPERATIVE DIAGNOSIS: 1- Lumbar spondylosis with Facet Arthropathy without myelopathy . 2- Lumber degenerative disc disease PROCEDURE: Diagnostic bilateral L3 -4 , L4 -5 , and L5-S1 medial branch block under fluoroscopy ANESTHESIA: moderate sedation with intravenous Versed 1 mg and Fentanyl 50 mcg. EBL: Minimal COMPLICATION: None. IV FLUIDS: 100 mL of normal saline. PROCEDURE INDICATION: Chronic low back pain secondary to Facet arthropathy unresponsive to conservative treatment. PROCEDURE DESCRIPTION: the patient was seen and identified in the preop holding area , risks and benefits and possible complications of the procedure and alternative were discussed with the patient, and the patient agreed to proceed with the procedure and signed the consent IV was started and vital signs monitored during the procedure and fluoroscopy was used to maximize the benefit and accuracy of the needle placement, and sedation was given to decrease patient anxiety, patient was taken to the procedure room and placed in prone position vital signs monitored in the back prepped with chlorhexidine X3 then under strict sterile technique using a right oblique fluoroscopy ,the junction of the transverse process and the superior articulating process of the right L3- 4 , L4- 5, and L5-S1 vertebra which corresponding to the fluoroscopy image of the eye of the Navdeep dog on the block side for the medial branches and subsequently , after local infiltration of skin and subcu tissuies with Ropivacaine 0.5 % , one mL at each level ,then 22-gauge Quincke-type needles , 3 needle was used , each one of them placed at the junction of the base of the transverse process and the superior articular process at the appropriate level, and the needle was advanced until the periosteum contacted, needle placement confirmed with AP oblique and lateral view and after appropriate needle placement confirmed, and after negative aspiration for heme and CSF and there was no paresthesia 1-1/2 mL of Ropivacaine 0.5% mixed with 20 mg Depo-Medrol , then half mL injected at each level after negative aspiration the needle subsequently removed and the same procedure repeated for the left side at left side at L3-4, L4- 5 and L5-S1 levels. At the end of the procedure and the needles removed and a bandage applied after the skin was cleaned the cleaning solution patient taken to recovery room in stable condition and monitors in the recovery room for 20-30 minutes and discharged home in stable condition after discharge criteria met and patient will follow up with the pain clinic in 2-4 weeks
[2018-10-30] MEDS ORDERED: IV FLUID CONTINUATION 1,000 ML IV ONE (07:52)
[2018-10-30 07:56] VITALS: RESP 18
[2018-10-30 08:10] VITALS: BP 124/65; PULSE 78
--- NOTE | 2018-10-30 09:39 | FL ---
EXAMINATION TYPE: FL guided pain mgmt statistic DATE OF EXAM: 10/30/2018 FLUOROSCOPY Fluoroscopy time of 13 seconds was used during bilateral lumbar facet blocks. 4 image/s document/s t he procedure.
== END 2018-10-30 08:25 | disposition home or self-care (01) ==
LOC: ORPAIN 06:40
PROVIDERS: ATTEND Specialist
DX: M47.816 Spondylosis without myelopathy or radiculopathy, lumbar region (principal); M51.36 Other intervertebral disc degeneration, lumbar region; I10 Essential (primary) hypertension; M06.9 Rheumatoid arthritis, unspecified; Z98.84 Bariatric surgery status; Z90.710 Acquired absence of both cervix and uterus; Z96.642 Presence of left artificial hip joint; Z96.653 Presence of artificial knee joint, bilateral
CPT/HCPCS: 64493; 64494; 64495; J2250; J1030; J3010; Q9966; 99152

== ENCOUNTER 2018-11-29 13:33 | Inpatient (IN) | payer MEDICARE ==
[2018-11-29 15:09] VITALS: BMI 32.6
[2018-11-29 16:55] LABS: Albumin 3.6 g/dL (3.5-5.0); Calcium 9.1 mg/dL (8.4-10.2); Potassium 3.5 mmol/L (3.5-5.1); Total Bilirubin 0.6 mg/dL (0.2-1.3); Total Protein 6.2 g/dL (6.3-8.2); Uric Acid 4.9 mg/dL (3.7-7.4)
[2018-11-29] MEDS: HYDROcodone/APAP 7.5-325MG 1 EACH TAB PO PRN (17:20)
--- NOTE | 2018-11-29 17:50 | XR ---
EXAMINATION TYPE: XR Hip Bilateral Complete DATE OF EXAM: 11/29/2018 COMPARISON: Right hip 11/25/2017 HISTORY: Bilateral hip pain TECHNIQUE: 2 views each hip FINDINGS: There is left hip prosthesis. Components are in anatomic position. There is narrowing of ri ght hip joint space with spur formation. I see no fracture nor dislocation. Right sacroiliac joint ap pears intact. Left sacroiliac joint appears intact. IMPRESSION: There is some osteoarthritis in the right hip that has progressed compared to last exam. Left hip prosthesis in good position.
--- NOTE | 2018-11-29 18:00 | CT ---
EXAMINATION TYPE: CT lumbar spine wo con DATE OF EXAM: 11/29/2018 5:49 PM COMPARISON: 11/25/2017 HISTORY: Lower back pain CT DLP: 1256.3 mGycm Automated exposure control for dose reduction was used. Unenhanced CT of the lumbar spine was performed. Bone and soft tissue window settings are submitted as well as coronal and sagittal reconstructions. There is slight lumbar levoscoliosis. There is some disc space narrowing and vacuum disc at L5-S1. Th ere is no compression fracture. There is narrowing of L1-2 and T12-L1 disc spaces with spur formation . There is multilevel lumbar hypertrophic facet arthropathy. There is no lumbar paraspinal mass. Ther e are bilateral renal small calculi less than 5 mm. There is no hydronephrosis. Sacroiliac joints joshua ear intact. There is a mild 5 mm retrolisthesis at L1-2. IMPRESSION: There are spondylotic changes. There is progression of spondylosis at L1-2 with new retrolisthesis. N o acute bony abnormality. No acute fracture seen.
[2018-11-29] MEDS: CALCITRIOL 0.25 MCG CAP PO SCH (20:36)
[2018-11-29] MEDS: busPIRone HCl 5 MG TAB PO SCH (20:37)
[2018-11-29] MEDS: PREGABALIN 75 MG CAP PO SCH (20:37)
[2018-11-29] MEDS: CYCLOBENZAPRINE 5 MG TAB PO SCH (20:37)
[2018-11-29] MEDS: methylPREDNISolone SOD SUCCI 125 MG/2 ML VIAL IV SCH (20:37)
[2018-11-29] MEDS: BISOPROLOL-HCTZ 10-6.25 MG 1 EACH TAB PO SCH (20:44)
[2018-11-30] MEDS: methylPREDNISolone SOD SUCCI 125 MG/2 ML VIAL IV SCH ×3 (05:52→20:46)
[2018-11-30] MEDS: LEVOTHYROXINE 50 MCG TAB PO SCH (05:52)
[2018-11-30] MEDS: CYCLOBENZAPRINE 5 MG TAB PO SCH ×2 (08:20→20:43)
[2018-11-30] MEDS: ASPIRIN 81 MG PO SCH (08:20)
[2018-11-30] MEDS: ALLOPURINOL 300 MG TAB PO SCH (08:20)
[2018-11-30] MEDS: HYDROcodone/APAP 7.5-325MG 1 EACH TAB PO PRN ×3 (08:21→23:05)
[2018-11-30] MEDS: busPIRone HCl 5 MG TAB PO SCH ×2 (08:21→20:43)
[2018-11-30] MEDS: PREGABALIN 75 MG CAP PO SCH ×2 (08:22→20:43)
[2018-11-30] MEDS: BISOPROLOL-HCTZ 10-6.25 MG 1 EACH TAB PO SCH ×2 (08:23→20:46)
[2018-11-30] MEDS: DOXAZOSIN 2 MG TAB PO SCH (08:23)
[2018-11-30] MEDS ORDERED: traMADol 50 MG TAB PO PRN (09:19)
[2018-11-30] MEDS: CHOLECALCIFEROL 1,000 UNIT TAB PO SCH (10:15)
[2018-11-30 11:16] LABS: Appearance,Urine Clear (Clear); Bacteria,Urine Rare /hpf; Bilirubin,Urine Negative (Negative); Blood,Urine Negative (Negative); Color,Urine Yellow; Glucose,Urine (UA) Negative (Negative); Ketones,Urine Negative (Negative); Leukocyte Esterase,Urine Moderate (Negative); Mucus,Urine Rare /hpf; Nitrite,Urine Negative (Negative); Protein,Urine Negative (Negative); RBC,Urine 1 /hpf (0-5); Specific Gravity,Urine 1.014 (1.001-1.035); Squamous Epithelial Cell,Urine <1 /hpf (0-4); Urobilinogen,Urine <2.0 mg/dL (<2.0); WBC,Urine 3 /hpf (0-5)
[2018-11-30 12:16] LABS: Glucose,Whole Blood 161 mg/dL (75-99)
[2018-11-30] MEDS: INSULIN ASPART (NovoLOG) 100 UNIT/ML VIAL SQ SCH ×3 (12:25→20:56)
--- NOTE | 2018-11-30 13:14 | P.CNOR ---
History of Present Illness - [facility] Consult date: 11/30/18 Consult reason: joint pain History of present illness: Patient is a 68-year-old female who was directly admitted to [facility] yesterday from her primary care office. Patient has apparently been having right-sided hip pain along with low back pain for the last 6 months. Patient admits over the last 3 weeks though the pain is gotten worse, her ambulating is becoming very difficult, she's been utilizing a cane. She has a history of a previous left total hip arthroplasty that was done about 10 years ago, and bilateral total knee arthroplasties that were done about 20 years ago. The surgery is to not take place at this hospital. Patient was recently evaluated by a neurosurgeon for her back pain, he had done x-rays of the hip and determined she had very severe arthritis. He advise fol lowing up with an orthopedic doctor. The orthopedic doctor that the patient saw, was not able to proceed with any surgical intervention until February. After being seen at her primary care office, her doctor recommended direct admit to the hospital for pain control and further evaluation. Our orthopedic team was then consult. Patient is evaluated at bedside today, she is resting comfortably. She notes most of the discomfort when weightbearing. She notes most of the discomfort in the right groin area. She notes lack of motion with regards to the right lower extremity, her ambulation is becoming very difficult. She denies any other orthopedic complaints at this time. Review of Systems Constitutional: Reports as per HPI Past Medical History Past Medical History: Hypertension, Rheumatoid Arthritis (RA), Thyroid Disorder Additional Past Medical History / Comment(s): Gout History of Any Multi-Drug Resistant Organisms: None Reported Past Surgical History: Bariatric Surgery, Cholecystectomy, Hysterectomy, Joint Replacement Additional Past Surgical History / Comment(s): bilateral knee replacement, lap band, LT hip replacement, PAIN CLINIC PROCEDURE (nerve stimulation/block in back) Past Anesthesia/Blood Transfusion Reactions: No Reported Reaction Past Psychological History: Depression Smoking Status: Former smoker Past Alcohol Use History: Rare Additional Past Alcohol Use History / Comment(s): QUIT SMOKING 30 YEARS AGO Past Drug Use History: None Reported - Past Family History Mother Family Medical History: Cancer, Pulmonary Embolus Additional Family Medical History / Comment(s): breast cancer Father Family Medical History: Cancer Additional Family Medical History / Comment(s): bladder cancer/prostate cancer Medications and Allergies Home Medications Medication Instructions Recorded Confirmed Type Calcitriol 0.25 mcg PO SUTUTHSA 12/09/16 11/29/18 History Potassium Chloride [Klor-Con 20] 20 meq PO BID 12/09/16 11/29/18 History buPROPion HCL [buPROPion HCL SR] 150 mg PO BID 12/09/16 11/29/18 History Bisoprol/Hydrochlorothiazide 1 tab PO BID 08/14/17 11/29/18 History [Bisoprolol-Hctz 10-6.25 mg Tab] Levothyroxine Sodium [Synthroid] 50 mcg PO DAILY 03/30/18 11/29/18 History Cyclobenzaprine [Flexeril] 5 mg PO BID 10/18/18 11/29/18 History Pregabalin [Lyrica] 75 mg PO BID 10/18/18 11/29/18 History Alloplex 1 tab PO DAILY 11/29/18 11/29/18 History Allopurinol [Zyloprim] 300 mg PO DAILY 11/29/18 11/29/18 History Aspirin EC [Ecotrin Low Dose] 81 mg PO DAILY 11/29/18 11/29/18 History Cholecalciferol [Vitamin D3 (25 1,000 unit PO DAILY 11/29/18 11/29/18 History Mcg = 1000 Iu)] Cranactin 1 tab PO DAILY 11/29/18 11/29/18 History Cranberry Fruit Extract [Cranberry] 500 mg PO DAILY 11/29/18 11/29/18 History Cyanocobalamin (Vitamin B-12) 1,000 mcg PO DAILY 11/29/18 11/29/18 History [Vitamin B-12] Doxazosin [Cardura] 2 mg PO DAILY 11/29/18 11/29/18 History Thyrostin 1 tab PO DAILY 11/29/18 11/29/18 History Vit A/Vit C/Vit E/Zinc/Copper 1 cap PO DAILY 11/29/18 11/29/18 History [ICAPS SOFTGEL] busPIRone HCL 15 mg PO BID 11/29/18 11/29/18 History traMADol HCL [Ultram] 50 mg PO Q8H PRN 11/29/18 11/29/18 History Allergies Allergy/AdvReac Type Severity Reaction Status Date / Time No Known Allergies Allergy Verified 11/29/18 17:32 Physical Examination Right lower extremity: No obvious open lesions or sores present, no significant areas of erythema or soft tissue swelling Obvious healed incision over the anterior knee Logroll maneuver of the hip does reproduce some discomfort, with the hip flexed at 90, internal and external rotation are limited due to pain. She notes most the pain in the groin She is able to straight leg raise, this does reproduce some pain in the groin Range of motion the knee is intact, no pain around the knee with palpation or motion Her sensation to light touch throughout that extremity is intact Her calf is soft, no tenderness with palpation Her dorsal pedis pulses 2+ Results - Labs Labs: Abnormal Lab Results - Last 24 Hours (Table) 11/29/18 11/30/18 11/30/18 Range/Units 16:25 10:16 12:14 Creatinine 1.16 H (0.52-1.04) mg/dL POC Glucose (mg/dL) 161 H (75-99) mg/dL Total Protein 6.2 L (6.3-8.2) g/dL Ur Leukocyte Esterase Moderate H (Negative) Urine Bacteria Rare H (None) /hpf Urine Mucus Rare H (None) /hpf Result Diagrams: 11/29/18 16:25 - Diagnostic results Hip x-ray: report reviewed, image reviewed CT Scan - lumbar: report reviewed Assessment and Plan Plan: Imaging: Multiple imaging test were ordered of the lumbar spine and right hip. Images of the right hip demonstrate severe osteoarthritic changes of the right hip joint. I'm unable to appreciate any acute fractures or dislocations. Report of the lumbar spine does demonstrate changes throughout. Assessment: 1. Right hip pain 2. Severe right hip osteoarthritis 3. Lumbar degenerative disc disease 4. Other medical comorbidities Plan: I did discuss with the patient today bedside her current condition, including treatment options. Elective joint replacement is recommended at this time for her hip arthritis. I explained to her that this is not an emergent case, and not something we be able to do in the next few days. I advise that she follow up with Dr. Villalobos next week in the outpatient setting, to discuss total hip arthroplasty. I am hoping we can schedule the patient for total hip arthroplasty in the near future. Pain control, recommend low dose oral narcotics and anti-inflammatories Recommend use of cane at this time when ambulating An orthopedic standpoint, patient is stable for discharge to home with follow-up in the outpatient setting Time with Patient: Less than 30
--- NOTE | 2018-11-30 14:04 | HP ---
HISTORY AND PHYSICAL CHIEF COMPLAINT: A 68-year-old white female, wheelchair-bound, unable to walk due to significant leg weakness and falls. Unable to lift her legs or ambulate due to significant fall risk and severe pain in her hip and back. She has a history of severe right hip arthritis on her right hip and surgery as well as lumbar spine and knee surgery. Neurologist recently said her right hip is so bad needs to be operated on, which could be contributing to her weakness and unable to ambulate and severe pain. Orthopedic consult is requested for right hip evaluation and possible epidural injection to the lumbar spine, but she states her neurologist says most of her weakness and inability to ambulate is due to the right hip which needs replacement. She is admitted to the hospital, placed on IV steroids at this time due to irretractable pain, inability to ambulate and falls. HOME MEDICATIONS: 1. Bisprolol-hydrochlorothiazide 10-6.25 b.i.d. 2. Wellbutrin 150 b.i.d. 3. BuSpar 15 b.i.d. 4. Calcitriol 0.25 mcg 4 times a week. 5. Vitamin D 1000 unit daily. 6. Flexeril 5 mg b.i.d. 7. Cardura 2 mg daily. Will start her on [place] 7.5 q.6 hours, levothyroxine 50 mcg daily, Zyloprim 300 mg daily, aspirin 81 mg daily, Lyrica 75 b.i.d., tramadol 50 q.8 p.r.n. 14 POINT REVIEW OF SYSTEMS: Negative except for as mentioned in HPI. PHYSICAL EXAM: Shows a temp 97 to 99, pulse 79 to 76, respiratory rate 16 to 18, blood pressure is 99 to 137/60s to 80s, O2 is 91% to 100% on room air. CARDIOVASCULAR: S1, S2. LUNGS: Decreased breath sounds x4. ABDOMEN: Distended due to obesity, BMI is over 40. She has 2+ edema on her bilateral legs. MUSCULOSKELETAL: patient on right hip and lumbar spine bilaterally. Positive straight leg raising test. VASCULAR: Normal dorsalis pedis, posterior tibial. PSYCH: She is anxious, nervous. ASSESSMENT: Irretractable back pain and multiple falls, inability to ambulate due to leg weakness, possibly. Will do IV steroids and some pain medicine control. Possibly Orthopedics can consult her for possible hip surgery here in town in the near future instead of doing it in [place]. She has history of lumbar disk disease with possible acute lumbar disk herniation, which possibly of lumbar epidural would be of relief. Please see further orders. MMODL / IJN: [id number] /
[2018-11-30] MEDS ORDERED: methylPREDNISolone SOD SUCCI 125 MG/2 ML VIAL IVP ONE (15:15)
[2018-11-30] MEDS ORDERED: ROPIVACAINE 5 MG/ML 30 ML VIAL EPIDURAL ONE (15:16)
--- NOTE | 2018-11-30 16:38 | P.CON ---
Consult Note - . Consult date: 11/30/18 Assessment/Plan:: Anesthesiology department consulted on this pleasant 68 y/o female admitted to the hospital due to severe back and right hip pain. The patient has had this pain for months, but it has became very severe during the last few days. MRI sh ows some disk protrusion in the lumbar region with new protrusion at L1-L2. She does complain of sciatica right greater than left and worsening symptoms when getting up or bending forward. She had a prior epidural steroid injection about 1 year ago with some symptom relief for a few weeks. The complicating factors in this case are that she has severe hip arthritis with a likely need for a hip replacement and the majority of her pain is at the hip. The rest of her medical and surgical history are not contributory. Her social history is negative x 3. I discussed at length with the patient the options including the likely limited benefit that an epidural steroid injection would offer. It will not help her hip pain and has an approximately 70% chance of improving her sciatica. Given limited alternatives until she can have the hip replacement aside from multimodal analgesia and a hip steroid injection, the patient wanted to proceed with ALEXANDER. After informed consent, patient's back was prepped and draped in sterile fashion. 1% lidocaine 3 ml infiltrated subcutaneously at L1-2 IS. 18 g Touhy needle was advanced to loss of resistance to NaCl at 6 cm. No blood or CSF. Mixture of 5 ml 0.25% ropivacaine and Methylprednisolone 120 mg were injected. The needle was withdrawn. The patient tolerated the procedure well. There were no complications.
[2018-11-30 17:00] LABS: Glucose,Whole Blood 127 mg/dL (75-99)
[2018-11-30] MEDS: buPROPion SR 150 MG TABLET.ER PO SCH (20:43)
[2018-11-30 20:49] LABS: Glucose,Whole Blood 219 mg/dL (75-99)
[2018-12-01] MEDS: methylPREDNISolone SOD SUCCI 125 MG/2 ML VIAL IV SCH ×3 (05:51→21:04)
[2018-12-01] MEDS: HYDROcodone/APAP 7.5-325MG 1 EACH TAB PO PRN ×3 (05:51→19:25)
[2018-12-01] MEDS: LEVOTHYROXINE 50 MCG TAB PO SCH (05:51)
[2018-12-01 07:05] LABS: Glucose,Whole Blood 165 mg/dL (75-99)
[2018-12-01] MEDS: CYCLOBENZAPRINE 5 MG TAB PO SCH ×2 (08:15→20:59)
[2018-12-01] MEDS: ASPIRIN 81 MG PO SCH (08:15)
[2018-12-01] MEDS: ALLOPURINOL 300 MG TAB PO SCH (08:15)
[2018-12-01] MEDS: CHOLECALCIFEROL 1,000 UNIT TAB PO SCH (08:15)
[2018-12-01] MEDS: PREGABALIN 75 MG CAP PO SCH ×2 (08:16→20:59)
[2018-12-01] MEDS: busPIRone HCl 5 MG TAB PO SCH ×2 (08:16→21:03)
[2018-12-01] MEDS: INSULIN ASPART (NovoLOG) 100 UNIT/ML VIAL SQ SCH ×4 (08:16→20:59)
[2018-12-01] MEDS: BISOPROLOL-HCTZ 10-6.25 MG 1 EACH TAB PO SCH ×2 (08:17→21:04)
[2018-12-01] MEDS: DOXAZOSIN 2 MG TAB PO SCH (08:17)
[2018-12-01] MEDS: buPROPion SR 150 MG TABLET.ER PO SCH ×2 (08:18→21:04)
[2018-12-01] MEDS: CALCITRIOL 0.25 MCG CAP PO SCH (08:18)
[2018-12-01 12:47] LABS: Glucose,Whole Blood 135 mg/dL (75-99)
[2018-12-01 17:47] LABS: Glucose,Whole Blood 124 mg/dL (75-99)
[2018-12-01 20:27] LABS: Glucose,Whole Blood 150 mg/dL (75-99)
--- NOTE | 2018-12-02 00:20 | PN ---
PROGRESS NOTE SUBJECTIVE: 68-year-old white female acute retractable back pain, acute right hip osteoarthritis, unable to ambulate due to significant weakness and pain into the hip. CARDIOVASCULAR: S1, S2. Lungs clear. GI soft. Musculoskeletal: Right hip tenderness to palpation, limited dorsiflexion, positive straight leg raising test bilaterally. ASSESSMENT: 1. Acute lumbar radiculopathy. 2. Acute right hip osteoarthritis. 3. Obesity, generalized debility. Continue current treatment. PT/OT. Possible discharge home tomorrow and on IV steroids. MMODL / IJN: [id number] /
[2018-12-02] MEDS: HYDROcodone/APAP 7.5-325MG 1 EACH TAB PO PRN ×2 (04:50→19:52)
[2018-12-02] MEDS: methylPREDNISolone SOD SUCCI 125 MG/2 ML VIAL IV SCH ×3 (04:50→19:52)
[2018-12-02] MEDS: LEVOTHYROXINE 50 MCG TAB PO SCH (04:50)
[2018-12-02 06:50] LABS: Glucose,Whole Blood 123 mg/dL (75-99)
[2018-12-02] MEDS: INSULIN ASPART (NovoLOG) 100 UNIT/ML VIAL SQ SCH ×4 (08:26→21:07)
[2018-12-02] MEDS: CHOLECALCIFEROL 1,000 UNIT TAB PO SCH (09:22)
[2018-12-02] MEDS: CYCLOBENZAPRINE 5 MG TAB PO SCH ×2 (09:22→19:53)
[2018-12-02] MEDS: busPIRone HCl 5 MG TAB PO SCH ×2 (09:22→19:53)
[2018-12-02] MEDS: ALLOPURINOL 300 MG TAB PO SCH (09:22)
[2018-12-02] MEDS: ASPIRIN 81 MG PO SCH (09:22)
[2018-12-02] MEDS: buPROPion SR 150 MG TABLET.ER PO SCH ×2 (09:23→19:53)
[2018-12-02] MEDS: CALCITRIOL 0.25 MCG CAP PO SCH (09:23)
[2018-12-02] MEDS: BISOPROLOL-HCTZ 10-6.25 MG 1 EACH TAB PO SCH ×2 (09:23→19:53)
[2018-12-02] MEDS: PREGABALIN 75 MG CAP PO SCH ×2 (09:23→19:53)
[2018-12-02] MEDS: DOXAZOSIN 2 MG TAB PO SCH (09:23)
[2018-12-02 12:21] LABS: Glucose,Whole Blood 117 mg/dL (75-99)
[2018-12-02 17:30] LABS: Glucose,Whole Blood 147 mg/dL (75-99)
[2018-12-02 20:36] LABS: Glucose,Whole Blood 129 mg/dL (75-99)
[2018-12-02] MEDS: POLYETHYLENE GLYCOL 3350 17 GM POWD.PACK PO PRN (21:56)
--- NOTE | 2018-12-03 01:12 | PN ---
PROGRESS NOTE SUBJECTIVE: 68-year-old white female with acute irretractable back pain, having no chest pain. No shortness of breath. Is greatly improving. Steroids will be decreased. Will be discharged home tomorrow. Lumbar epidural has greatly improved her back. Right hip is improved. Sent home tomorrow with pain medications, steroid taper. Straight leg raise test 45 to 60 degrees on the right and left. Hip is moving better. Cardiovascular S1, S2. Lungs clear. ASSESSMENT: 1. Acute lumbar disc herniation. 2. Acute right hip severe arthritis. 3. Gait imbalance. 4. Severe intractable pain. Continue current treatment. Home tomorrow on steroids and pain medication. MMODL / IJN: [id number] /
[2018-12-03] MEDS: methylPREDNISolone SOD SUCCI 125 MG/2 ML VIAL IV SCH (06:00)
[2018-12-03] MEDS: LEVOTHYROXINE 50 MCG TAB PO SCH (06:00)
[2018-12-03 07:07] LABS: Glucose,Whole Blood 144 mg/dL (75-99)
[2018-12-03 07:21] VITALS: BP 161/85; PULSE 70; RESP 18; TEMP 97.4
[2018-12-03] MEDS: PREGABALIN 75 MG CAP PO SCH (07:24)
[2018-12-03] MEDS: busPIRone HCl 5 MG TAB PO SCH (07:24)
[2018-12-03] MEDS: CHOLECALCIFEROL 1,000 UNIT TAB PO SCH (07:25)
[2018-12-03] MEDS: ALLOPURINOL 300 MG TAB PO SCH (07:25)
[2018-12-03] MEDS: BISOPROLOL-HCTZ 10-6.25 MG 1 EACH TAB PO SCH (07:25)
[2018-12-03] MEDS: ASPIRIN 81 MG PO SCH (07:25)
[2018-12-03] MEDS: CYCLOBENZAPRINE 5 MG TAB PO SCH (07:25)
[2018-12-03] MEDS: DOXAZOSIN 2 MG TAB PO SCH (07:25)
[2018-12-03] MEDS: HYDROcodone/APAP 7.5-325MG 1 EACH TAB PO PRN (07:26)
[2018-12-03] MEDS: buPROPion SR 150 MG TABLET.ER PO SCH (07:26)
[2018-12-03] MEDS: POLYETHYLENE GLYCOL 3350 17 GM POWD.PACK PO PRN (07:32)
[2018-12-03] MEDS: INSULIN ASPART (NovoLOG) 100 UNIT/ML VIAL SQ SCH (07:42)
--- NOTE | 2018-12-03 15:17 | P.DS ---
Providers Date of admission: 12/02/18 07:56 Expected date of discharge: 12/03/18 Attending physician: Raymundo Silvestre Consults: 11/30/18 11:43 Consult Physician Routine Consulting Provider: Efrain Villalobos Consult Reason/Comments: Hip pain Do you want consulting provider notified?: Yes 11/30/18 12:58 anesthesia [Consult to Anesthesia] Routine Consulting Provider: Anesthesia,Services Consult Reason/Comments: lumbar epidural Primary care physician: Raymundo Silvestre [facility] Course: Final Diagnoses: -Acute lumbar disc herniation -Acute right hip severe arthritis -Gait imbalance Hospital course: This is a 68-year-old white female with acute intractable back pain status post lumbar epidural. Maintained on steroids. Evaluated by [facility], elective joint replacement discussed. Significant clinical improvemen. Cleared by Consults for discharge. Patient is being discharged home in a stable condition with guarded prognosis. Patient is scheduled to meet with Dr. Villalobos next week to discuss total hip arthroplasty. Dr. Silvestre's office will be escribing Pain medications. EXAM GEM: Alert and oriented 3, no acute distress Lungs: Clear, bilateral bases diminished CV: Regular S1 and S2. ABD: Soft, nontender, nondistended, positive bowel sounds. NEURO: No gross focal neuro deficits. The impression and plan of care has been dictated as directed. : I performed a history and examination of this patient, discussed the same with the dictator. I agree with the dictator's note ,documented as a scribe. Any additional findings or plans will be noted. Time Taken: 35 min Patient Condition at Discharge: Stable Plan - Discharge Summary Discharge Rx Participant: No New Discharge Prescriptions: New predniSONE 10 mg PO DIRECTED #30 tab Continue Calcitriol 0.25 mcg PO SUTUTHSA buPROPion HCL [buPROPion HCL SR] 150 mg PO BID Potassium Chloride [Klor-Con 20] 20 meq PO BID Bisoprol/Hydrochlorothiazide [Bisoprolol-Hctz 10-6.25 mg Tab] 1 tab PO BID Levothyroxine Sodium [Synthroid] 50 mcg PO DAILY Pregabalin [Lyrica] 75 mg PO BID Cyclobenzaprine [Flexeril] 5 mg PO BID traMADol HCL [Ultram] 50 mg PO Q8H PRN PRN Reason: Pain Allopurinol [Zyloprim] 300 mg PO DAILY Doxazosin [Cardura] 2 mg PO DAILY busPIRone HCL 15 mg PO BID Vit A/Vit C/Vit E/Zinc/Copper [ICAPS SOFTGEL] 1 cap PO DAILY Thyrostin 1 tab PO DAILY Cholecalciferol [Vitamin D3 (25 Mcg = 1000 Iu)] 1,000 unit PO DAILY Aspirin EC [Ecotrin Low Dose] 81 mg PO DAILY Alloplex 1 tab PO DAILY Cyanocobalamin (Vitamin B-12) [Vitamin B-12] 1,000 mcg PO DAILY Cranberry Fruit Extract [Cranberry] 500 mg PO DAILY Cranactin 1 tab PO DAILY Discharge Medication List Calcitriol 0.25 mcg PO SUTUTHSA 12/09/16 [History] Potassium Chloride [Klor-Con 20] 20 meq PO BID 12/09/16 [History] buPROPion HCL [buPROPion HCL SR] 150 mg PO BID 12/09/16 [History] Bisoprol/Hydrochlorothiazide [Bisoprolol-Hctz 10-6.25 mg Tab] 1 tab PO BID 08/14/17 [History] Levothyroxine Sodium [Synthroid] 50 mcg PO DAILY 03/30/18 [History] Cyclobenzaprine [Flexeril] 5 mg PO BID 10/18/18 [History] Pregabalin [Lyrica] 75 mg PO BID 10/18/18 [History] Alloplex 1 tab PO DAILY 11/29/18 [History] Allopurinol [Zyloprim] 300 mg PO DAILY 11/29/18 [History] Aspirin EC [Ecotrin Low Dose] 81 mg PO DAILY 11/29/18 [History] Cholecalciferol [Vitamin D3 (25 Mcg = 1000 Iu)] 1,000 unit PO DAILY 11/29/18 [History] Cranactin 1 tab PO DAILY 11/29/18 [History] Cranberry Fruit Extract [Cranberry] 500 mg PO DAILY 11/29/18 [History] Cyanocobalamin (Vitamin B-12) [Vitamin B-12] 1,000 mcg PO DAILY 11/29/18 [History] Doxazosin [Cardura] 2 mg PO DAILY 11/29/18 [History] Thyrostin 1 tab PO DAILY 11/29/18 [History] Vit A/Vit C/Vit E/Zinc/Copper [ICAPS SOFTGEL] 1 cap PO DAILY 08/08/19 [History] busPIRone HCL 15 mg PO BID 11/29/18 [History] traMADol HCL [Ultram] 50 mg PO Q8H PRN 11/29/18 [History] predniSONE 10 mg PO DIRECTED #30 tab 12/03/18 [Rx] Follow up Appointment(s)/Referral(s): Raymundo Silvestre MD [Primary Care Provider] - 1 Week Efrain Villalobos DO [Doctor of Osteopathic Medicine] - 2 Weeks Patient Instructions/Handouts: Osteoarthritis (DC) Activity/Diet/Wound Care/Special Instructions: Call Dr. Wells office and make appt regarding pain medication. Orthopedic discharge instructions: 1. Pain control, utilize oral narcotics low dose as needed, anti-inflammatories are also okay 2. Weight-bear as tolerated, recommend use of cane when ambulating 3. Plan for follow-up with Dr. Villalobos in the outpatient setting in the next week or so Discharge Disposition: HOME SELF-CARE
== END 2018-12-03 13:29 | disposition home or self-care (01) | DRG 552 ==
LOC: 4MS4W 14:14 → OBSVTOIN 12-02 07:56
PROVIDERS: ADMIT Family Medicine; ATTEND Family Medicine
PROC: 3E0R3BZ Introduction of Anesthetic Agent into Spinal Canal, Percutaneous Approach (ICD-10-PCS; 2018-11-30)
PROC: 3E0R33Z Introduction of Anti-inflammatory into Spinal Canal, Percutaneous Approach (ICD-10-PCS; principal; 2018-11-30 13:55)
DX: M51.16 Intervertebral disc disorders with radiculopathy, lumbar region (principal); M16.11 Unilateral primary osteoarthritis, right hip; M06.9 Rheumatoid arthritis, unspecified; R29.6 Repeated falls; E66.9 Obesity, unspecified; Z68.36 Body mass index [BMI] 36.0-36.9, adult; I10 Essential (primary) hypertension; Z79.52 Long term (current) use of systemic steroids; Z79.82 Long term (current) use of aspirin; Z79.890 Hormone replacement therapy; Z79.899 Other long term (current) drug therapy; Z80.3 Family history of malignant neoplasm of breast; Z80.52 Family history of malignant neoplasm of bladder; Z87.891 Personal history of nicotine dependence; Z90.710 Acquired absence of both cervix and uterus; Z91.81 History of falling; Z96.642 Presence of left artificial hip joint; Z96.653 Presence of artificial knee joint, bilateral; Z99.3 Dependence on wheelchair; Z80.42 Family history of malignant neoplasm of prostate; Z98.84 Bariatric surgery status; R26.9 Unspecified abnormalities of gait and mobility
CPT/HCPCS: 62323; 72131; 73521; 80053; 81001; 84550

== ENCOUNTER → 2019-01-18 | Outpatient (CLI) | payer MEDICARE | LOC: LABPAT 12:44 | PROVIDERS: ATTEND Orthopaedic Surgery | DX: Z01.812 Encounter for preprocedural laboratory examination (principal); M16.11 Unilateral primary osteoarthritis, right hip | CPT/HCPCS: 87070 ==

== ENCOUNTER 2019-01-28 10:10 | Inpatient (IN) | payer MEDICARE ==
--- NOTE | 2019-01-27 19:13 | HP ---
HISTORY AND PHYSICAL DATE OF SURGERY: 01/28/2019 Areli Yarbrough is a 68-year-old patient seen with progressive right hip pain consistent with symptomatic osteoarthritis. We discussed options. She elected to proceed with direct anterior total hip arthroplasty. Consent regarding the procedure was obtained. Medical clearance was provided by Dr. Raymundo Silvestre. PAST MEDICAL HISTORY: Hypertension, hypothyroidism, gout, depression. PAST SURGICAL HISTORY: Foot surgery, hysterectomy, total knee arthroplasty, left total hip arthroplasty. MEDICATIONS: Allopurinol, aspirin, bisoprolol/hydrochlorothiazide, buspirone, levothyroxine, Lyrica. ALLERGIES: None reported. SOCIAL HISTORY: She denies current tobacco use. PHYSICAL EXAMINATION: Evaluation of the right hip, she has very limited range of motion with severe pain. Straight leg raise negative. Positive impingement sign. Diffuse tenderness about the hip girdle. Straight leg raise negative. Distal neurovascular exam intact. RADIOGRAPHS: Radiographs of the right hip reveals severe osteoarthritic changes. IMPRESSION: 1. Right hip osteoarthritis. 2. Hypertension. 3. Hypothyroidism. PLAN: Direct anterior right total hip arthroplasty. MMODL / IJN: [id number] /
[~2019-01-28 10:10] MED LIST changes: +ACETAMINOPHEN TAB 500 MG TAB PO ONE; -LACTATED RINGERS 1,000 ML IV SCH; +LIDOCAINE 1% 20 ML VIAL (10MG/ML) FOR IV START INTRADERMA PRN; +MELOXICAM 7.5 MG TAB PO ONE; +MIDAZOLAM 2 MG/2 ML VIAL IV PRN; +ROPIVACAINE 246.25 MG, EPINEPHrine 0.5 MG, KETOROLAC 30 MG, cloNIDine HCL/PF 80 MCG, WA... MISCELLANE ONE; +TRANEXAMIC ACID 1,000 MG in SODIUM CHLORIDE 0.9% 100 ML IVPB ONE; +fentaNYL (PF) 50 MCG/ML 2 ML AMP IV PRN
[2019-01-28] MEDS ORDERED: ONDANSETRON 4 MG/2 ML VIAL IVP ONE (12:01)
[2019-01-28] MEDS: LACTATED RINGERS 1,000 ML IV SCH ×4 (12:01→18:48)
[2019-01-28] MEDS ORDERED: DEXAMETHASONE SOD PHOSPHATE 10 MG/ML 1 ML VIAL IV ONE (12:02)
[2019-01-28] MEDS ORDERED: SODIUM CHLORIDE 0.9% 100 ML BAG ONE (12:56)
[2019-01-28] MEDS ORDERED: PROPOFOL 10 MG/ML 20 ML VIAL IV ONE (12:56)
[2019-01-28] MEDS ORDERED: fentaNYL (PF) 50 MCG/ML 2 ML AMP ONE (12:56)
[2019-01-28] MEDS ORDERED: TRANEXAMIC ACID 1,000 MG/10 ML VIAL ONE (12:56)
[2019-01-28] MEDS ORDERED: MIDAZOLAM 2 MG/2 ML VIAL ONE (12:56)
[2019-01-28] MEDS ORDERED: PHENYLEPHRINE-0.9% NACL SYG 1 MG/10 ML SYRINGE ONE (12:56)
[2019-01-28] MEDS ORDERED: ceFAZolin 3,000 MG in SODIUM CHLORIDE 0.9% IRRIGATIO 3,000 ML IRRIGATION ONE (13:24)
[2019-01-28] MEDS ORDERED: LACTATED RINGERS 1,000 ML IV ONE (14:18)
--- NOTE | 2019-01-28 14:49 | FL ---
EXAMINATION TYPE: FL guidance operating room, XR Hip Limited RT DATE OF EXAM: 01/28/2019 CLINICAL HISTORY: Hip replacement for arthritis and pain. TECHNIQUE: Fluoroscopy. Limited views right hip. COMPARISON: Bilateral hip x-ray November 29, 2018. FINDINGS: Fluoroscopic guidance was provided during right hip replacement procedure performed by Dr. Villalobos. A total of 25 seconds of fluoroscopic time was utilized during the procedure and single spot fluoroscopic intraoperative image is acquired. Single image acquired shows metallic artifact from total hip arthroplasty satisfactory in position on frontal projection. IMPRESSION: As Above.
[2019-01-28] MEDS ORDERED: traMADol 50 MG TAB PO PRN (14:54)
[2019-01-28] MEDS ORDERED: HYDROmorphone 0.5 MG/0.5 ML SYRINGE IVP PRN ×3 (14:54)
[2019-01-28] MEDS ORDERED: HYDROcodone/APAP 5-325MG 1 EACH TAB PO PRN (14:54)
[2019-01-28] MEDS ORDERED: NALOXONE 0.4 MG/ML 1 ML VIAL IV PRN (14:54)
--- NOTE | 2019-01-28 14:54 | P.OP ---
Date of Procedure: 01/28/19 Preoperative Diagnosis: Right hip osteoarthritis Postoperative Diagnosis: Right hip osteoarthritis Procedure(s) Performed: Direct anterior right total hip arthroplasty Implants: 1. Depuy KA size 11 standard collar press-fit femoral stem 2. Depuy pinnacle 54 mm multihole press-fit acetabular shell with 4 appropriate length 6.5 mm cancellus bone screws 3. Depuy pinnacle neutral polyethylene acetabular liner 36 mm ID 54 mm OD 4. Biolox delta ceramic femoral head +1.5 36 mm Anesthesia: local, spinal Surgeon: Efrain Villalobos Bilingual Legal Assistant #1: Aramis Su Estimated Blood Loss (ml): 250 Pathology: other (Femoral head) Condition: stable Disposition: PACU Indications for Procedure: 68-year-old patient seen with symptomatic right hip osteoarthritis. After treatment options were discussed, she elected to proceed with total hip arthroplasty. Operative Findings: See description of procedure Description of Procedure: The patient was taken to the operative suite. Patient underwent a spinal anesthetic by the department of anesthesia. Patient was then transferred to the [place] table. Patient was given preoperative IV antibiotics and TXA. Both lower extremities were placed in standard leg spars. The hip was then prepped and draped in the normal sterile orthopedic fashion. A standard anterior incision was made beginning 3 cm lateral and 1 cm distal to the ASIS extending 10 cm. Dissection was then carried down through the subcutaneous soft tissues down to the fascia overlying the tensor fascia jenn. An incision was now made through the fascia. Careful dissection was taken down exposing the tensor fascia jenn muscle. A Cobra retractor was now placed along the medial femoral neck and a second one along the lateral femoral neck. The venous circumflex vessels were now identified, cauterized and clipped. We identified the anterior hip capsule. An incision was made through the hip capsule along the lateral border. I performed a partial anterior capsulectomy. Retractors were now placed around the femoral neck itself. A femoral neck cut was now made with a sagittal saw. It was completed with an osteotome at the lateral neck area. The femoral head was now removed without difficulty. The extremity was now rotated to 45 of external rotation. It was locked in position. Residual labrum was now debrided out. Serial reaming was performed of the acetabulum while Bandar MORFIN assisted holding an anterior retractor for exposure. Once we reached the appropriate size and a trial was position and fit nicely. The appropriate size was now chosen opened and made available. It was introduced into the acetabulum without difficulty. The C-arm/fluoroscopy was now brought into the operative field. We made sure we had a true AP pelvic view. We now under direct C- arm/fluoroscopy introduced into the acetabular component with appropriate version and inclination. I held the cup in appropriate position well Bandar MORFIN used a mallet to seat the acetabular component. I noted the cup to be still somewhat unstable. I now introduced 4appropriate length 6.5 mm cancellous bone screws which did nicely stabilize the acetabular cup. The C-arm was pulled back. An appropriate liner was introduced and clicked into position. It was felt to be stable. At this point retractors were removed. The extremity was now placed into 120 external rotation with no traction. The leg was now dropped to the ground and adducted. Appropriate retractors were now positioned along the proximal femur. We also placed our femoral look into position. Additional capsular releasing was performed to gain access to the proximal femur. We now used a box osteotome. A canal finder was now utilized. Serial broaching was now performed with the assistance of Bandar MORFIN tapping the broaches down with a mallet while held the broach in appropriate rotation and position. This was done until we reached the appropriate size with good overall rotational stability. Appropriate calcar planing was performed. A trial head/neck was placed into position. The hip was now reduced. The C- arm/fluoroscopy was brought back into the operative field. The trial components appeared well positioned. An AP pelvis was obtained to ascertain appropriate leg length. The C-arm/fluoroscopy was pulled back. Retractors were repositioned and the hip was dislocated. The leg was again taken down to the ground and adducted. Appropriate retractors were repositioned as well as the femoral hook. All trial components were removed. The femoral implant was open ed along with the femoral head. The femoral implant was introduced on the appropriate handle into our pre-broached area. I held the component position well Bandar MORFIN used a mallet to seat the femoral component. The femoral component was now noted to be well seated and stable.. The femoral head was introduced with good positioning and fixation noted. Retractors were now removed. The hip was now reduced. There appeared be good positioning of the hip confirmed on intraoperative fluoroscopy. Spot films were obtained to document this. A second gram of TXA was given. The deep and superficial soft tissues were infiltrated with local analgesic. Bipolar cautery had been utilized intermittently through the procedure for hemostasis. The wound was irrigated copiously with pulse lavage mechanical irrigation. The fascia was repaired with Vicryl suture. The subcutaneous soft tissues were repaired in layers with Vicryl suture. The skin was approximated with pernio/Dermabond. Sterile dressings were applied. Patient was then awakened, transferred to a bed and taken to recovery in stable condition. Bandar MORFIN assisted with the complex procedure.
[2019-01-28 16:25] VITALS: BMI 36.3
[2019-01-28] MEDS ORDERED: [UNRECOGNIZED DRUG - OTHER] PO SCH (17:00)
[2019-01-28] MEDS: POTASSIUM CHLORIDE ER 20 MEQ TAB.ER PO SCH (20:37)
[2019-01-28] MEDS: PREGABALIN 75 MG CAP PO SCH (20:37)
[2019-01-28] MEDS: buPROPion SR 150 MG TABLET.ER PO SCH (20:37)
[2019-01-28] MEDS: SENNOSIDES-DOCUSATE SODIUM 1 EACH TAB PO SCH (20:37)
[2019-01-28] MEDS: TOBRA-DEXAMET 0.3-0.1% OPHTH DROPS 2.5 ML BTL LEFT EYE SCH ×2 (20:37→23:42)
[2019-01-28] MEDS: busPIRone HCl 5 MG TAB PO SCH (20:37)
[2019-01-28] MEDS: BISOPROLOL-HCTZ 10-6.25 MG 1 EACH TAB PO SCH (20:38)
--- NOTE | 2019-01-28 22:11 | CONS ---
CONSULTATION CHIEF COMPLAINT: Brwtz-dilav-urgs-old white female, status post right hip surgery, for medical management. She has a history of gout, anxiety, hypertension, irritable bowel syndrome, severe arthritis. She is complaining of lots of pain at this time. She is complaining of having her left eye scratched and feels a scratchy sensation in her eye that she did not have before surgery. Apparently they looked for an eyelash in her eye and they cannot find one. I am going to start prophylactic antibiotics for possible conjunctivitis of the eye at this time. Continue her home medications. Home medicines include: 1. Cardura 2 mg daily. 2. BuSpar 15 mg b.i.d. 3. Ziac 10/6.25 b.i.d. 4. Zyloprim 300 mg daily. 5. Aspirin 81 mg daily. 6. Lyrica 75 b.i.d. 7. Tramadol 50 q.6 hours. 8. She is on IV Dilaudid postoperatively. REVIEW OF SYSTEMS: Fourteen-point review of systems negative except for mentioned in HPI. PHYSICAL EXAMINATION: She is alert and oriented x3. CARDIOVASCULAR: S1, S2. LUNGS: Transmitted upper airway sounds. VITAL SIGNS: Blood pressure 105 to 116/over 60s. Oxygen 96% on room air. Respiratory rate 16 to 18. Pulse 68 to 70. Temperature 96.8. GI: Soft. HEMATOLOGY: Negative Homans. Bandage on the right hip. PSYCH: Fair mood and affect. NEUROLOGIC: Alert and oriented x3. ASSESSMENT: 1. Status post right hip replacement. 2. History of irritable bowel syndrome. 3. Hypertension. 4. Osteoarthritis. 5. Gout. Continue current medications from home. Start Tobradex prophylactic eye drops for her left eye 2 drops b.i.d. Follow up in the next 24-48 hours for discharge to a rehab center. MMODL / IJN: [id number] /
[2019-01-29] MEDS: HYDROcodone/APAP 5-325MG 1 EACH TAB PO PRN ×2 (01:09→18:10)
[2019-01-29] MEDS: LACTATED RINGERS 1,000 ML IV SCH ×2 (04:01→15:30)
[2019-01-29] MEDS: TOBRA-DEXAMET 0.3-0.1% OPHTH DROPS 2.5 ML BTL LEFT EYE SCH ×6 (05:29→23:02)
[2019-01-29] MEDS: LEVOTHYROXINE 50 MCG TAB PO SCH (05:29)
[2019-01-29 06:26] LABS: Anisocytosis Slight; Basophils # (A) 0.1 k/uL (0-0.2); Basophils % (A) 1 %; Eosinophils % (A) 0 %; HCT 33.4 % (34.0-46.0); Hypochromasia Slight; Lymphocytes # (A) 0.8 k/uL (1.0-4.8); Lymphocytes % (A) 8 %; MCH 30.3 pg (25.0-35.0); Macrocytosis Slight; Mean Platelet Volume 7.2; Monocytes % (A) 10 %; Neutrophils # (A) 8.3 k/uL (1.3-7.7); Neutrophils % (A) 79 %; Platelet Count 281 k/uL (150-450); RBC 3.31 m/uL (3.80-5.40); RDW 16.3 % (11.5-15.5); WBC 10.5 k/uL (3.8-10.6)
[2019-01-29] MEDS: ENOXAPARIN 40 MG/0.4 ML SYRINGE SQ SCH (07:36)
[2019-01-29] MEDS: ASPIRIN 81 MG PO SCH (07:36)
[2019-01-29] MEDS: busPIRone HCl 5 MG TAB PO SCH ×2 (07:36→20:25)
[2019-01-29] MEDS: PREGABALIN 75 MG CAP PO SCH ×2 (07:37→20:25)
[2019-01-29] MEDS: BISOPROLOL-HCTZ 10-6.25 MG 1 EACH TAB PO SCH ×2 (07:37→20:26)
[2019-01-29] MEDS: CYANOCOBALAMIN 500 MCG TAB PO SCH (07:37)
[2019-01-29] MEDS: MELOXICAM 7.5 MG TAB PO SCH (07:37)
[2019-01-29] MEDS: buPROPion SR 150 MG TABLET.ER PO SCH ×2 (07:37→20:26)
[2019-01-29] MEDS: CHOLECALCIFEROL 1,000 UNIT TAB PO SCH (07:37)
[2019-01-29] MEDS: ALLOPURINOL 300 MG TAB PO SCH (07:37)
[2019-01-29] MEDS: POTASSIUM CHLORIDE ER 20 MEQ TAB.ER PO SCH ×2 (07:37→20:25)
[2019-01-29] MEDS: DOXAZOSIN 2 MG TAB PO SCH (07:38)
[2019-01-29] MEDS ORDERED: [UNRECOGNIZED DRUG - OTHER] PO SCH (09:00)
[2019-01-29] MEDS ORDERED: CALCITRIOL 0.25 MCG CAP PO SCH (09:00)
--- NOTE | 2019-01-29 11:35 | P.PN ---
Subjective Progress Note Date: 01/29/19 Principal diagnosis: Status post right anterior total hip arthroplasty Patient evaluated at bedside today, she is resting comfortably. She has no pain whatsoever. She's ambulated well with therapy. She denies any chest pain or shortness of breath. Objective - Vital Signs Vital signs: Vital Signs Temp 98.3 F 01/29/19 07:40 Pulse 79 01/29/19 07:40 Resp 16 01/29/19 07:40 BP 132/63 01/29/19 07:40 Pulse Ox 98 01/29/19 07:40 Intake & Output 01/28/19 01/29/19 01/29/19 18:59 06:59 18:59 Intake Total 1551 1400 125 Output Total 250 Balance 1301 1400 125 Intake: IV 1551 Intake, IV Titration 800 Amount Lactated Ringers 1,000 ml 800 @ 80 mls/hr IV .[id number] [facility] Rx#:[id number] Oral 600 125 Output: Estimated Blood Loss 250 Other: # Voids 1 - Exam Right lower extremity: Incision is clean, dry, and intact. The optifoam bandage is in good condition. There is minimal soft tissue swelling and ecchymosis surrounding the medial and lateral aspects of the incision. Calf is soft, no tenderness with palpation. Plantar flexion, dorsiflexion, EHL, FHL are intact. Sensory exam to light touch throughout the extremity is intact, dorsal pedis pulses 2+. - Labs CBC & Chem 7: 01/29/19 05:54 Labs: Abnormal Lab Results - Last 24 Hours (Table) 01/29/19 Range/Units 05:54 RBC 3.31 L (3.80-5.40) m/uL Hgb 10.0 L (11.4-16.0) gm/dL Hct 33.4 L (34.0-46.0) % MCV 101.0 H (80.0-100.0) fL MCHC 30.0 L (31.0-37.0) g/dL RDW 16.3 H (11.5-15.5) % Neutrophils # 8.3 H (1.3-7.7) k/uL Lymphocytes # 0.8 L (1.0-4.8) k/uL Assessment and Plan Plan: Assessment: Postoperative day 1 status post right anterior right total hip arthroplasty Plan: Pain control, continue oral medication GI and DVT prophylaxis, continue current medication Encourage incentive spirometer Wound care instructions discussed Icing and elevating often Continue physical therapy Medical recommendations We'll keep patient one additional night, she will have assistance available for home tomorrow Time with Patient: Less than 30
--- NOTE | 2019-01-29 17:39 | PN ---
PROGRESS NOTE DATE OF SERVICE: 01/29/2019 I am covering for Dr. Silvestre. This 68-year-old woman who was admitted after right hip replacement is improving significantly. No chest pain. No palpitations. No fever. EXAM: Alert and oriented times three. Pulse is 78. Blood pressure 82/48, improved to 95/56, respiration 14, temperature 97.7, pulse ox 94% on room air. HEENT is conjunctivae normal. Neck: No JVD. CARDIOVASCULAR: S1, S2 muffled. RESPIRATIONS: Breath sounds diminished in the bases. No rhonchi. No crackles. ABDOMEN is soft. NERVOUS SYSTEM: No focal deficits. LEGS status post surgery. LAB STUDIES: WBC 10.5, hemoglobin is 10. ASSESSMENT: 1. Status post right hip replacement. 2. Relative hypotension, mild. 3. History of irritable bowel syndrome. 4. Hypertension history. 5. History of degenerative joint disease. 6. History of gout. RECOMMENDATIONS AND DISCUSSION: Recommend to continue current medications, management and symptomatic treatment. Otherwise, I would recommend orthostatic vitals and continue to monitor. I would also recommend DVT prophylaxis and as well as hold if systolic blood pressure less than 100 mmHg. Further recommendations to follow. MMODL / IJN: [id number] / SIA
[2019-01-29] MEDS: SENNOSIDES-DOCUSATE SODIUM 1 EACH TAB PO SCH (20:25)
[2019-01-29 22:07] VITALS: RESP 16
[2019-01-30] MEDS: HYDROcodone/APAP 5-325MG 1 EACH TAB PO PRN ×3 (00:33→11:52)
[2019-01-30] MEDS: TOBRA-DEXAMET 0.3-0.1% OPHTH DROPS 2.5 ML BTL LEFT EYE SCH ×3 (03:40→12:49)
[2019-01-30] MEDS: LACTATED RINGERS 1,000 ML IV SCH (03:41)
[2019-01-30] MEDS: LEVOTHYROXINE 50 MCG TAB PO SCH (05:06)
[2019-01-30 07:14] VITALS: TEMP 98.6
[2019-01-30 08:09] LABS: Basophils % (A) 1 %; Eosinophils # (A) 0.1 k/uL (0-0.7); Eosinophils % (A) 1 %; HCT 30.7 % (34.0-46.0); HGB 9.8 gm/dL (11.4-16.0); Hypochromasia Slight; Lymphocytes # (A) 1.2 k/uL (1.0-4.8); Lymphocytes % (A) 16 %; MCH 31.8 pg (25.0-35.0); MCV 99.4 fL (80.0-100.0); Macrocytosis Slight; Mean Platelet Volume 6.3; Monocytes % (A) 13 %; Neutrophils % (A) 67 %; Platelet Count 231 k/uL (150-450); RBC 3.09 m/uL (3.80-5.40); RDW 15.9 % (11.5-15.5); WBC 7.5 k/uL (3.8-10.6)
[2019-01-30 08:18] LABS: Calcium 8.4 mg/dL (8.4-10.2); Potassium 4.1 mmol/L (3.5-5.1)
[2019-01-30] MEDS: MELOXICAM 7.5 MG TAB PO SCH (09:07)
[2019-01-30] MEDS: ALLOPURINOL 300 MG TAB PO SCH (09:07)
[2019-01-30] MEDS: ASPIRIN 81 MG PO SCH (09:07)
[2019-01-30] MEDS: CYANOCOBALAMIN 500 MCG TAB PO SCH (09:07)
[2019-01-30] MEDS: PREGABALIN 75 MG CAP PO SCH (09:07)
[2019-01-30] MEDS: busPIRone HCl 5 MG TAB PO SCH (09:07)
[2019-01-30] MEDS: POTASSIUM CHLORIDE ER 20 MEQ TAB.ER PO SCH (09:07)
[2019-01-30] MEDS: CHOLECALCIFEROL 1,000 UNIT TAB PO SCH (09:07)
[2019-01-30] MEDS: ENOXAPARIN 40 MG/0.4 ML SYRINGE SQ SCH (09:08)
[2019-01-30 10:30] VITALS: BP 91/59; PULSE 80
[2019-01-30] MEDS: DOXAZOSIN 2 MG TAB PO SCH (10:31)
[2019-01-30] MEDS: buPROPion SR 150 MG TABLET.ER PO SCH (10:35)
--- NOTE | 2019-01-30 10:43 | P.PN ---
Subjective Progress Note Date: 01/30/19 Principal diagnosis: Status post right anterior total hip arthroplasty Patient evaluated at bedside today, she is resting comfortably. She has no pain whatsoever. She's ambulated well with therapy. She denies any chest pain or shortness of breath. Objective - Vital Signs Vital signs: Vital Signs Temp 98.6 F 01/30/19 07:14 Pulse 80 01/30/19 10:30 Resp 16 01/30/19 07:11 BP 91/59 01/30/19 10:30 Pulse Ox 94 L 01/30/19 07:11 Intake & Output 01/29/19 01/30/19 01/30/19 18:59 06:59 18:59 Intake Total 250 960 240 Balance 250 960 240 Intake: Oral 250 960 240 Other: Voiding Method Toilet Toilet # Voids 3 1 - Exam Right lower extremity: Incision is clean, dry, and intact. The optifoam bandage is in good condition. There is minimal soft tissue swelling and ecchymosis surrounding the medial and lateral aspects of the incision. Calf is soft, no tenderness with palpation. Plantar flexion, dorsiflexion, EHL, FHL are intact. Sensory exam to light touch throughout the extremity is intact, dorsal pedis pulses 2+. - Labs CBC & Chem 7: 01/30/19 07:25 01/30/19 07:25 Labs: Abnormal Lab Results - Last 24 Hours (Table) 01/30/19 01/30/19 Range/Units 07:25 07:25 RBC 3.09 L (3.80-5.40) m/uL Hgb 9.8 L (11.4-16.0) gm/dL Hct 30.7 L (34.0-46.0) % RDW 15.9 H (11.5-15.5) % Creatinine 1.18 H (0.52-1.04) mg/dL Assessment and Plan Plan: Assessment: Postoperative day #2 status post right anterior right total hip arthroplasty Plan: Pain control, continue oral medication GI and DVT prophylaxis, continue current medication Encourage incentive spirometer Wound care instructions discussed Icing and elevating often Continue physical therapy Medical recommendations Discharge home today Time with Patient: Less than 30
--- NOTE | 2019-01-30 10:50 | P.DS ---
Providers Date of admission: 01/28/19 11:14 Expected date of discharge: 01/30/19 Attending physician: Efrain Villalobos [facility] Hospital Course: Date of admission: 01/28/2019 Date of discharge: 01/30/2019 Admission diagnosis: Status post direct anterior right total hip arthroplasty Discharge diagnosis: Same Attending physician: Dr. Villalobos Surgical procedures: Direct anterior right total arthroplasty Brief history: Patient is a 68-year-old female with a history of with progressive primary right hip osteoarthritis. At this point patient has failed conservative treatment measures and has opted to proceed with a elective right total hip arthroplasty. Hospital course: Details of patient's surgery can be found in operative report. Patient tolerated the procedure well and was subsequently transported to orthopedic floor. Patient's orthopeidc and medical care was provided daily. Patient had daily laboratory tests performed for evaluation of overall blood counts. Patient had daily physical therapy to include strengthening range of motion as well as education with walker ambulation. Patient was treated with Lovenox for their postoperative DVT prophylaxis during their inpatient stay. Patient was noted to have a relatively uneventful postoperative course. Patient reported satisfactory pain control with oral pain medications by postoperative day 0. Patient showed satisfactory progress with physical therapy. Patient moved steadily through the program and had no difficulty meeting the goals by postoperative day 2. Given patient's otherwise satisfactory course and having met physical therapy goals, plan is to discharge patient home on postoperative day 2. Discharge condition/disposition: Patient will be discharged home in stable condition. Discharge medications: Instructions are given on resumption of patient's normal daily medications per primary care recommendation, in addition patient will be prescribed Colace 100 mg, aspirin 81 mg. Discharge instructions: 1. Wound care and infection precautions, keep incision dry and covered while showering, no lotions, creams, moisturizers. No soaking, tubs, pools, hottubs. Do not scrub over the incision. 2. Weight-bear as tolerated with walker / cane until follow-up. 3. Ice and elevate when necessary. Do not exceed 20 minutes per hour with ice pack. 4. Utilize compression sleeve until seen at first follow up appointment. 5. Visiting nursing care. 6. Home physical therapy. 7. Pain meds and anticoagulants per prescription. 8. Pain medication has potential to cause constipation. Increase oral fluid and fiber intake. Contact primary care provider if you have not had a bowel movement within 48 hours after discharge 9. No anti-inflammatory medication until discussed at first post operative visit, this including Motrin, Aleve, Mobic, Diclofenac. 10. Follow up in office at 2 weeks postop with Bandar Su PA-C 11. Follow up with your primary care doctor 7-10 days after discharge. 12. Contact [facility] with any questions, . Procedures: Direct anterior total hip arthroplasty Patient Condition at Discharge: Good Plan - Discharge Summary Discharge Rx Participant: Yes New Discharge Prescriptions: New Aspirin [Adult Low Dose Aspirin EC] 81 mg PO BID #60 tablet. Docusate [Colace] 100 mg PO DAILY #30 capsule No Action Calcitriol 0.25 mcg PO SUTUTHSA buPROPion HCL [buPROPion HCL SR] 150 mg PO BID Potassium Chloride [Klor-Con 20] 20 meq PO BID Bisoprol/Hydrochlorothiazide [Bisoprolol-Hctz 10-6.25 mg Tab] 1 tab PO BID Levothyroxine Sodium [Synthroid] 50 mcg PO DAILY Pregabalin [Lyrica] 75 mg PO BID Cyclobenzaprine [Flexeril] 5 mg PO BID Allopurinol [Zyloprim] 300 mg PO DAILY Doxazosin [Cardura] 2 mg PO DAILY busPIRone HCL 15 mg PO BID Vit A/Vit C/Vit E/Zinc/Copper [ICAPS SOFTGEL] 1 cap PO DAILY Thyrostin 1 tab PO DAILY Cholecalciferol [Vitamin D3 (25 Mcg = 1000 Iu)] 1,000 unit PO DAILY Alloplex 1 tab PO DAILY Cyanocobalamin (Vitamin B-12) [Vitamin B-12] 1,000 mcg PO DAILY Cranberry Fruit Extract [Cranberry] 500 mg PO DAILY Cranactin 1 tab PO DAILY Discharge Medication List Calcitriol 0.25 mcg PO SUTUTHSA 12/09/16 [History] Potassium Chloride [Klor-Con 20] 20 meq PO BID 12/09/16 [History] buPROPion HCL [buPROPion HCL SR] 150 mg PO BID 12/09/16 [History] Bisoprol/Hydrochlorothiazide [Bisoprolol-Hctz 10-6.25 mg Tab] 1 tab PO BID 08/14/17 [History] Levothyroxine Sodium [Synthroid] 50 mcg PO DAILY 03/30/18 [History] Cyclobenzaprine [Flexeril] 5 mg PO BID 10/18/18 [History] Pregabalin [Lyrica] 75 mg PO BID 10/18/18 [History] Alloplex 1 tab PO DAILY 11/29/18 [History] Allopurinol [Zyloprim] 300 mg PO DAILY 11/29/18 [History] Cholecalciferol [Vitamin D3 (25 Mcg = 1000 Iu)] 1,000 unit PO DAILY 11/29/18 [History] Cranactin 1 tab PO DAILY 11/29/18 [History] Cranberry Fruit Extract [Cranberry] 500 mg PO DAILY 11/29/18 [History] Cyanocobalamin (Vitamin B-12) [Vitamin B-12] 1,000 mcg PO DAILY 11/29/18 [History] Doxazosin [Cardura] 2 mg PO DAILY 11/29/18 [History] Thyrostin 1 tab PO DAILY 11/29/18 [History] Vit A/Vit C/Vit E/Zinc/Copper [ICAPS SOFTGEL] 1 cap PO DAILY 11/29/18 [History] busPIRone HCL 15 mg PO BID 11/29/18 [History] Aspirin [Adult Low Dose Aspirin EC] 81 mg PO BID #60 tablet.dr 01/30/19 [Rx] Docusate [Colace] 100 mg PO DAILY #30 capsule 01/30/19 [Rx] Follow up Appointment(s)/Referral(s): Aramis Su PAC [PHYSICIAN A&P TECHNICIAN] - 02/13/19 3:10 pm [facility] [NON-STAFF] - Activity/Diet/Wound Care/Special Instructions: Orthopedic Discharge Instructions: 1. Wound care and infection precautions, keep incision dry and covered while showering, no lotions, creams, moisturizers. No soaking, pools, hot tubs. Do not scrub over incision. 2. Weight-bear as tolerated with walker / cane until follow-up. 3. Ice and elevate when necessary. Do not exceed 20 minutes per hour with ice pack. 4. Utilize compression sleeve until seen at first follow up appointment. 5. Pain meds and anticoagulants per prescription. 6. Pain medication has potential to cause constipation. Increase oral fluid and fiber intake. Contact primary care provider if you have not had a bowel movement within 48 hours after discharge. 7. No anti-inflammatory medication until discussed at first post operative visit, this including Motrin, Aleve, Mobic, Diclofenac. 8. Follow up in office at 2 weeks postop with Bandar Su PA-C 9. Follow up with your primary care doctor 7-10 days after discharge. 10. Contact [facility] with any questions, . Discharge Disposition: HOME WITH HOME HEALTH SERVICES
[2019-01-30] MEDS: BISOPROLOL-HCTZ 10-6.25 MG 1 EACH TAB PO SCH (10:57)
--- NOTE | 2019-01-30 22:01 | PN ---
PROGRESS NOTE DATE OF SERVICE: 01/30/2019. I am covering for Dr. Silvestre. This 68-year-old woman was admitted after hip surgery has improved significantly. Patient has mild relative hypotension which is asymptomatic. No chest pain. No palpitations. Cardura is on hold. EXAM: Alert and oriented x3. Pulse is 80. Blood pressure 91/59, respiration 20, temperature 98.6, pulse ox normal. HEENT: Conjunctivae normal. NECK: No JVD. CARDIOVASCULAR: S1, S2 muffled. RESPIRATORY: Breath sounds diminished in the bases. No rhonchi. No crackles. ABDOMEN is soft, nontender. LEGS status post surgery. NERVOUS SYSTEM: No focal deficits. LABS: Hemoglobin 9.8, creatinine 1.18. ASSESSMENT: 1. Status post right hip replacement. 2. Relative hypotension, mild. 3. History of irritable bowel syndrome. 4. Hypertension history. 5. Increased creatinine mildly. 6. History of degenerative joint disease. 7. History of gout. RECOMMENDATIONS AND DISCUSSION: I recommend to continue current medications, management and symptomatic treatment. Otherwise, hold Cardura for now. Check blood pressure closely. Closely follow with Dr. Silvestre in the outpatient setting. Further recommendations to follow. MMODL / IJN: [id number] /
== END 2019-01-30 13:46 | disposition home health service (06) | DRG 470 ==
LOC: 2ORMAIN 11:14 → 4SSUR 15:08
PROVIDERS: ADMIT Orthopaedic Surgery; ATTEND Orthopaedic Surgery
PROC: 0SR904A Replacement of Right Hip Joint with Ceramic on Polyethylene Synthetic Substitute, Uncemented, Open Approach (ICD-10-PCS; principal; 2019-01-28 12:55)
DX: M16.11 Unilateral primary osteoarthritis, right hip (principal); I95.9 Hypotension, unspecified; M06.9 Rheumatoid arthritis, unspecified; E03.9 Hypothyroidism, unspecified; I10 Essential (primary) hypertension; H57.89 Other specified disorders of eye and adnexa; F32.9 Major depressive disorder, single episode, unspecified; K58.9 Irritable bowel syndrome, unspecified; M10.9 Gout, unspecified; F41.9 Anxiety disorder, unspecified; Z79.82 Long term (current) use of aspirin; Z79.890 Hormone replacement therapy; Z79.899 Other long term (current) drug therapy; Z98.84 Bariatric surgery status; Z96.642 Presence of left artificial hip joint; Z90.710 Acquired absence of both cervix and uterus; Z98.890 Other specified postprocedural states; Z96.653 Presence of artificial knee joint, bilateral
CPT/HCPCS: 36415; 73501; 80048; 85025; 86850; 86900; 86901; 88300

== ENCOUNTER 2019-02-18 07:55 | Day surgery (SDC) | payer MEDICARE ==
[~2019-02-18 07:55] MED LIST changes: -ACETAMINOPHEN TAB 500 MG TAB PO ONE; +DEXAMETHASONE SOD PHOSPHATE 10 MG/ML 1 ML VIAL IV ONE; +HYDROmorphone 0.5 MG/0.5 ML SYRINGE IVP PRN; -LIDOCAINE 1% 20 ML VIAL (10MG/ML) FOR IV START INTRADERMA PRN; -MELOXICAM 7.5 MG TAB PO ONE; +ONDANSETRON 4 MG/2 ML VIAL IVP ONE; -ROPIVACAINE 246.25 MG, EPINEPHrine 0.5 MG, KETOROLAC 30 MG, cloNIDine HCL/PF 80 MCG, WA... MISCELLANE ONE; -TRANEXAMIC ACID 1,000 MG in SODIUM CHLORIDE 0.9% 100 ML IVPB ONE; -fentaNYL (PF) 50 MCG/ML 2 ML AMP IV PRN
[2019-02-18] MEDS: LACTATED RINGERS 1,000 ML IV SCH ×2 (08:32→14:35)
[2019-02-18 08:34] LABS: Anisocytosis Slight; HCT 34.9 % (34.0-46.0); Hypochromasia Moderate; MCHC 31.5 g/dL (31.0-37.0); MCV 95.3 fL (80.0-100.0); Mean Platelet Volume 5.9; Platelet Count 459 k/uL (150-450); RBC 3.66 m/uL (3.80-5.40); RDW 16.3 % (11.5-15.5); WBC 7.2 k/uL (3.8-10.6)
[2019-02-18 08:47] LABS: Potassium 4.1 mmol/L (3.5-5.1)
--- NOTE | 2019-02-18 09:26 | P.HPOR ---
History of Present Illness H&P Date: 02/18/19 Chief Complaint: Right hip wound dehiscence 68-year-old patient who had undergone direct anterior right total hip arthroplasty on 01/28/19 had an area of incisional wound dehiscence. I recommended irrigation with revision incision repair. Patient was agreeable and consent was obtained. Review of Systems Constitutional: Reports as per HPI Past Medical History Past Medical History: Hypertension, Rheumatoid Arthritis (RA), Thyroid Disorder Additional Past Medical History / Comment(s): Gout. RT HIP INCISION SPLIT OPEN POST RT DOREEN History of Any Multi-Drug Resistant Organisms: None Reported Past Surgical History: Bariatric Surgery, Cholecystectomy, Hysterectomy, Joint Replacement Additional Past Surgical History / Comment(s): bilateral knee replacement, lap band, LT hip replacement, PAIN CLINIC PROCEDURE (nerve stimulation/block in back) RT DOREEN-01/28/19, BILAT CATARACT REMOVED Past Anesthesia/Blood Transfusion Reactions: No Reported Reaction Smoking Status: Former smoker - Past Family History Mother Family Medical History: Cancer, Pulmonary Embolus Additional Family Medical History / Comment(s): breast cancer Father Family Medical History: Cancer Additional Family Medical History / Comment(s): bladder cancer/prostate cancer Medications and Allergies Home Medications Medication Instructions Recorded Confirmed Type Calcitriol 0.25 mcg PO SUTUTHSA 12/09/16 02/18/19 History Potassium Chloride [Klor-Con 20] 20 meq PO BID 12/09/16 02/18/19 History buPROPion HCL [buPROPion HCL SR] 150 mg PO BID 12/09/16 02/18/19 History Bisoprol/Hydrochlorothiazide 1 tab PO BID 08/14/17 02/18/19 History [Bisoprolol-Hctz 10-6.25 mg Tab] Levothyroxine Sodium [Synthroid] 50 mcg PO DAILY 03/30/18 02/18/19 History Cyclobenzaprine [Flexeril] 5 mg PO BID 10/18/18 02/18/19 History Pregabalin [Lyrica] 75 mg PO BID 10/18/18 02/18/19 History Alloplex 1 tab PO DAILY 11/29/18 02/18/19 History Allopurinol [Zyloprim] 300 mg PO DAILY 11/29/18 02/18/19 History Cholecalciferol [Vitamin D3 (25 1,000 unit PO DAILY 11/29/18 02/18/19 History Mcg = 1000 Iu)] Cranactin 1 tab PO DAILY 11/29/18 02/18/19 History Cranberry Fruit Extract [Cranberry] 500 mg PO DAILY 11/29/18 02/18/19 History Cyanocobalamin (Vitamin B-12) 1,000 mcg PO DAILY 11/29/18 02/18/19 History [Vitamin B-12] Doxazosin [Cardura] 2 mg PO DAILY 11/29/18 02/18/19 History Thyrostin 1 tab PO DAILY 11/29/18 02/18/19 History Vit A/Vit C/Vit E/Zinc/Copper 1 cap PO DAILY 11/29/18 02/18/19 History [ICAPS SOFTGEL] busPIRone HCL 15 mg PO BID 11/29/18 02/18/19 History Aspirin [Adult Low Dose Aspirin EC] 81 mg PO BID #60 tablet. 01/30/19 02/18/19 Rx Docusate [Colace] 100 mg PO DAILY #30 capsule 01/30/19 02/18/19 Rx HYDROcodone/APAP 5-325MG [[place] 1 tab PO Q6HR PRN 02/18/19 02/18/19 History 5-325] Allergies Allergy/AdvReac Type Severity Reaction Status Date / Time Penicillins Allergy Mild Wheezing Verified 02/18/19 08:22 Physical Examination Osteopathic Statement: *. No significant issues noted on an osteopathic structural exam other than those noted in the History and Physical/Consult. There appears to be some dehiscence and nonhealing along the anterior incision area. There is no evidence for any erythema or infective process. Gentle log rolling of the hip is without any pain. Distal neurovascular exam is intact. Homans and Rajan or both negative. Results - Labs Labs: Abnormal Lab Results - Last 24 Hours (Table) 02/18/19 02/18/19 Range/Units 08:30 08:30 RBC 3.66 L (3.80-5.40) m/uL Hgb 11.0 L (11.4-16.0) gm/dL RDW 16.3 H (11.5-15.5) % Plt Count 459 H (150-450) k/uL Chloride 108 H (98-107) mmol/L H & H 02/18/19 Range/Units 08:30 Hgb 11.0 L (11.4-16.0) gm/dL Hct 34.9 (34.0-46.0) % Result Diagrams: 02/18/19 08:30 02/18/19 08:30 Assessment and Plan Assessment: Right anterior hip wound dehiscence Plan: Irrigation with revision repair right hip anterior incision
[2019-02-18] MEDS ORDERED: PROPOFOL 10 MG/ML 20 ML VIAL IV ONE (09:56)
[2019-02-18] MEDS ORDERED: LIDOCAINE 1% INJ 10MG/ML (20 ML MDV) ONE (09:56)
[2019-02-18] MEDS ORDERED: fentaNYL (PF) 50 MCG/ML 2 ML AMP ONE (09:56)
[2019-02-18] MEDS ORDERED: MIDAZOLAM 2 MG/2 ML VIAL ONE (09:56)
[2019-02-18] MEDS ORDERED: SUCCINYLCHOLINE CHLORIDE 100 MG/5 ML SYR IV ONE (09:56)
[2019-02-18] MEDS ORDERED: ceFAZolin 3,000 MG in SODIUM CHLORIDE 0.9% IRRIGATIO 3,000 ML IRRIGATION ONE (10:05)
[2019-02-18] MEDS ORDERED: HYDROmorphone 0.5 MG/0.5 ML SYRINGE IVP PRN ×3 (10:33)
[2019-02-18] MEDS ORDERED: HYDROcodone/APAP 5-325MG 1 EACH TAB PO PRN ×2 (10:33)
[2019-02-18] MEDS ORDERED: ONDANSETRON 4 MG/2 ML VIAL IVP PRN (10:33)
[2019-02-18] MEDS ORDERED: NALOXONE 0.4 MG/ML 1 ML VIAL IV PRN (10:33)
--- NOTE | 2019-02-18 10:33 | P.OP ---
Date of Procedure: 02/18/19 Preoperative Diagnosis: Right anterior hip wound dehiscence Postoperative Diagnosis: Same Procedure(s) Performed: Irrigation and debridement with repair right anterior hip wound Anesthesia: PROMISE Surgeon: Efrain Villalobos Solution Engineer #1: Aramis Su Estimated Blood Loss (ml): 7 Pathology: none sent Condition: stable Disposition: PACU Indications for Procedure: 68-year-old patient who had undergone right tracked anterior total hip arthroplasty was seen with dehiscence of the wound. I recommended irrigation/debridement and repair. Patient was agreeable and consent was obtained. Operative Findings: see description of procedure Description of Procedure: The patient was taken to the operative suite. The patient received preoperative IV antibiotics. The right hip was prepped and draped in the normal sterile orthopedic fashion. I used a #10 blade to excise some necrotic tissue around the area of the incision. The area of necrotic tissue measuring approximately 5 cm in length and a few millimeters in width. The depth of the debridement was approximately 0.5 cm. It appeared to be involving only the subcutaneous tissues it did not go any deeper than that. There was no involvement of the fascia or deep joint area. There is no evidence of any infective process with no erythema or [place]'s. At this point pulse lavage was utilized to irrigate the wound out thoroughly. We then repaired the incision area with nylon suture. Sterile dressings were applied. The patient was awakened and transferred to recovery stable condition. Bandar MORFIN assisted with the procedure.
[2019-02-18 11:51] VITALS: BMI 36.0
--- NOTE | 2019-02-18 15:55 | P.CNPUL ---
History of Present Illness Consult date: 02/18/19 Reason for consult: other (Medical management) Chief complaint: Patient admitted electively for right wound dehiscence History of present illness: This patient was seen eval reexamined while covering for Dr. Breaux patient underwent direct anterior right total hip arthroplasty on 01/28/19 had an area of incisional wound dehiscence. Has been admitted for revision and incision repair for past medical history significant for hypertension and rheumatoid arthritis and thyroid disorder which is stable review of the operative note revealed that the area of necrotic tissue measuring approximately 5 cm in length and a few millimeters in width. The depth of the debridement was approximately 0.5 cm. It appeared to be involving only the subcutaneous tissues it did not go any deeper than that. There was no involvement of the fascia or deep joint area. There is no evidence of any infective process with no erythema Review of Systems All systems: negative Past Medical History Past Medical History: Hypertension, Rheumatoid Arthritis (RA), Thyroid Disorder Additional Past Medical History / Comment(s): Gout. RT HIP INCISION SPLIT OPEN POST RT DOREEN History of Any Multi-Drug Resistant Organisms: None Reported Past Surgical History: Bariatric Surgery, Cholecystectomy, Hysterectomy, Joint Replacement Additional Past Surgical History / Comment(s): bilateral knee replacement, lap band, LT hip replacement, PAIN CLINIC PROCEDURE (nerve stimulation/block in back) RT DOREEN-01/28/19, BILAT CATARACT REMOVED Past Anesthesia/Blood Transfusion Reactions: No Reported Reaction Past Psychological History: Depression Smoking Status: Former smoker Past Alcohol Use History: Rare Additional Past Alcohol Use History / Comment(s): QUIT SMOKING 30 YEARS AGO Past Drug Use History: None Reported - Past Family History Mother Family Medical History: Cancer, Pulmonary Embolus Additional Family Medical History / Comment(s): breast cancer Father Family Medical History: Cancer Additional Family Medical History / Comment(s): bladder cancer/prostate cancer Medications and Allergies Home Medications Medication Instructions Recorded Confirmed Type Calcitriol 0.25 mcg PO SUTUTHSA 12/09/16 02/18/19 History Potassium Chloride [Klor-Con 20] 20 meq PO BID 12/09/16 02/18/19 History buPROPion HCL [buPROPion HCL SR] 150 mg PO BID 12/09/16 02/18/19 History Bisoprol/Hydrochlorothiazide 1 tab PO BID 08/14/17 02/18/19 History [Bisoprolol-Hctz 10-6.25 mg Tab] Levothyroxine Sodium [Synthroid] 50 mcg PO DAILY 03/30/18 02/18/19 History Cyclobenzaprine [Flexeril] 5 mg PO BID 10/18/18 02/18/19 History Pregabalin [Lyrica] 75 mg PO BID 10/18/18 02/18/19 History Alloplex 1 tab PO DAILY 11/29/18 02/18/19 History Allopurinol [Zyloprim] 300 mg PO DAILY 11/29/18 02/18/19 History Cholecalciferol [Vitamin D3 (25 1,000 unit PO DAILY 11/29/18 02/18/19 History Mcg = 1000 Iu)] Cranactin 1 tab PO DAILY 11/29/18 02/18/19 History Cranberry Fruit Extract [Cranberry] 500 mg PO DAILY 11/29/18 02/18/19 History Cyanocobalamin (Vitamin B-12) 1,000 mcg PO DAILY 11/29/18 02/18/19 History [Vitamin B-12] Doxazosin [Cardura] 2 mg PO DAILY 11/29/18 02/18/19 History Thyrostin 1 tab PO DAILY 11/29/18 02/18/19 History Vit A/Vit C/Vit E/Zinc/Copper 1 cap PO DAILY 11/29/18 02/18/19 History [ICAPS SOFTGEL] busPIRone HCL 15 mg PO BID 11/29/18 02/18/19 History Aspirin [Adult Low Dose Aspirin EC] 81 mg PO BID #60 tablet. 01/30/19 02/18/19 Rx Docusate [Colace] 100 mg PO DAILY #30 capsule 01/30/19 02/18/19 Rx HYDROcodone/APAP 5-325MG [[place] 1 tab PO Q6HR PRN 02/18/19 02/18/19 History 5-325] Allergies Allergy/AdvReac Type Severity Reaction Status Date / Time Penicillins Allergy Mild Wheezing Verified 02/18/19 08:22 Physical Exam Vitals: Vital Signs Temp Pulse Pulse Resp BP Pulse Ox 02/18/19 13:45 90 152/81 02/18/19 13:30 96 149/69 02/18/19 13:15 85 158/101 02/18/19 13:00 81 138/81 02/18/19 12:45 85 136/79 02/18/19 12:30 83 139/83 02/18/19 12:15 83 137/71 02/18/19 12:00 83 126/80 02/18/19 11:45 97.9 F 82 16 123/74 92 L 02/18/19 11:29 82 16 123/60 98 02/18/19 11:14 79 16 128/62 100 02/18/19 10:59 78 17 123/59 100 02/18/19 10:44 97.2 F L 81 16 119/60 96 02/18/19 08:19 98.1 F 72 16 112/59 98 Intake and Output 02/18/19 02/18/19 02/18/19 06:59 14:59 22:59 Intake Total 901 Output Total 7 Balance 894 Intake: IV 701 Other 200 Output: Estimated Blood Loss 7 Other: Weight 101.151 kg - Constitutional General appearance: cooperative, disheveled, morbidly obese - EENT Eyes: EOMI, PERRLA, poor dentition, normal appearance ENT: normal oropharynx Ears: bilateral: normal - Neck Thyroid: bilateral: normal size - Respiratory Respiratory: bilateral: CTA - Cardiovascular Rhythm: regular Heart sounds: normal: S1, S2 - Gastrointestinal General gastrointestinal: normal bowel sounds, soft - Integumentary Integumentary: normal turgor - Neurologic Neurologic: CNII-XII intact - Musculoskeletal Musculoskeletal: gait normal, generalized weakness, strength equal bilaterally - Psychiatric Psychiatric: A&O x's 3, appropriate affect, intact judgment & insight Results - Laboratory Findings CBC and BMP: 02/18/19 08:30 02/18/19 08:30 Abnormal lab findings: Abnormal Labs 02/18/19 02/18/19 08:30 08:30 RBC 3.66 L Hgb 11.0 L RDW 16.3 H Plt Count 459 H Chloride 108 H Assessment and Plan Assessment: Wound dehiscence status post revision of right hip arthroplasty via anterior approach Hypertension Hypothyroidism Morbid obesity Severe degree of rheumatoid arthritis and with component of degenerative joint disease osteoarthritis Plan: Continue pain medicine Operative report reviewed Continue home medications Agree with discharge planning for tomorrow Time with Patient: Greater than 30
[2019-02-18] MEDS: ASPIRIN 81 MG PO SCH (20:36)
[2019-02-18] MEDS ORDERED: SENNOSIDES-DOCUSATE SODIUM 1 EACH TAB PO SCH (21:00)
[2019-02-19] MEDS: LACTATED RINGERS 1,000 ML IV SCH ×2 (05:18→05:20)
[2019-02-19] MEDS ORDERED: LEVOTHYROXINE 50 MCG TAB PO SCH (06:30)
[2019-02-19 07:08] LABS: Anisocytosis Slight; Basophils # (A) 0.1 k/uL (0-0.2); Basophils % (A) 1 %; Eosinophils % (A) 1 %; HCT 30.3 % (34.0-46.0); Hypochromasia Marked; Lymphocytes # (A) 1.2 k/uL (1.0-4.8); Lymphocytes % (A) 25 %; MCH 30.1 pg (25.0-35.0); MCHC 30.9 g/dL (31.0-37.0); MCV 97.5 fL (80.0-100.0); Macrocytosis Slight; Mean Platelet Volume 6.5; Monocytes # (A) 0.6 k/uL (0-1.0); Monocytes % (A) 12 %; Neutrophils # (A) 2.8 k/uL (1.3-7.7); Neutrophils % (A) 58 %; Platelet Count 368 k/uL (150-450); RDW 16.3 % (11.5-15.5); WBC 4.8 k/uL (3.8-10.6)
[2019-02-19 07:27] LABS: HGB 9.3 gm/dL (11.4-16.0)
[2019-02-19 07:37] VITALS: BP 111/65; PULSE 70; RESP 18; TEMP 98
[2019-02-19] MEDS: ASPIRIN 81 MG PO SCH (07:47)
--- NOTE | 2019-02-19 13:29 | P.PN ---
Subjective Progress Note Date: 02/19/19 Principal diagnosis: s/p irrigation and debridement with right hip wound repair Patient evaluated at bedside, resting comfortably. She has no pain. She denies any chest pain or shortness of breath. Objective - Vital Signs Vital signs: Vital Signs Temp 98.0 F 02/19/19 07:00 Pulse 70 02/19/19 07:00 Resp 18 02/19/19 07:25 BP 111/65 02/19/19 07:00 Pulse Ox 95 02/19/19 07:00 Intake & Output 02/18/19 02/19/19 02/19/19 18:59 06:59 18:59 Intake Total 901 800 Output Total 7 Balance 894 800 Weight 101.151 kg Intake: IV 701 Intake, IV Titration 600 Amount Lactated Ringers 1,000 ml 600 @ 50 mls/hr IV .Q20H MINERVA Rx#:[id number] Oral 200 Other 200 Output: Estimated Blood Loss 7 Other: Voiding Method Toilet Toilet # Voids 1 - Exam Right lower extremity: Opteform dressing is good positioning condition. No drainage from incision. No erythema or soft tissue swelling. Distal neurovascular exam is intact. - Labs CBC & Chem 7: 02/19/19 06:15 02/18/19 08:30 Labs: Abnormal Lab Results - Last 24 Hours (Table) 02/19/19 Range/Units 06:15 RBC 3.10 L (3.80-5.40) m/uL Hgb 9.3 L D (11.4-16.0) gm/dL Hct 30.3 L (34.0-46.0) % MCHC 30.9 L (31.0-37.0) g/dL RDW 16.3 H (11.5-15.5) % Assessment and Plan Plan: Assessment: Postoperative day #1 status post irrigation and debridement with wound repair right anterior hip Plan: Patient has pain medication at home, we'll continue current medication Aspirin 81 mg twice a day for a week Wound care instructions discussed Plan for follow-up in 10 days Time with Patient: Less than 30
--- NOTE | 2019-02-19 13:30 | P.DS ---
Providers Date of admission: 02/18/2019 Attending physician: Efrain Villalobos Consults: 02/18/19 10:33 Consult Physician Routine Consulting Provider: Raymundo Silvestre Reason/Comments: Medical management Do you want consulting provider notified?: Yes Primary care physician: Raymundo Silvestre [place] [facility] Course: Date of admission: 02/18/2019 Date of discharge: 02/19/2019 Admission diagnosis: Status post irrigation and debridement with repair right anterior hip wound Discharge diagnosis: Same Attending physician: Dr. Villalobos Surgical procedures: Irrigation and debridement with repair right anterior hip wound Brief history: Patient is a 68-year-old female with a history of a recent direct anterior right total hip arthroplasty. She was evaluated in the outpatient setting on 2 separate postop visits, it was noted she had a area of wound dehiscence. She failed initial conservative management, she was scheduled for the procedure on 02/18/2019. Hospital course: Details of patient's surgery can be found in operative report. Patient tolerated the procedure well and was subsequently transported to orthopedic floor. Patient's orthopeidc and medical care was provided daily. Patient had daily laboratory tests performed for evaluation of overall blood counts. Patient had daily physical therapy to include strengthening range of motion as well as education with walker ambulation. Patient was treated with Lovenox for their postoperative DVT prophylaxis during their inpatient stay. Patient was noted to have a relatively uneventful postoperative course. Patient reported satisfactory pain control with oral pain medications by postoperative day 0. Patient showed satisfactory progress with physical therapy. Patient moved steadily through the program and had no difficulty meeting the goals by postoperative day 1. Given patient's otherwise satisfactory course and having met physical therapy goals, plan is to discharge patient home on postoperative day 1. Discharge condition/disposition: Patient will be discharged ome n stable condition. Discharge medications: Instructions are given on resumption of patient's normal daily medications per primary care recommendation, in addition patient will be prescribed no new medication. Discharge instructions: 1. Wound care and infection precautions, incision dry and covered while showering, no lotions, creams, moisturizers. No soaking, tubs, pools, hottubs. Do not scrub over the incision. 2. Weight-bear as tolerated with walker / cane until follow-up. 3. Ice and elevate when necessary. Do not exceed 20 minutes per hour with ice pack. 4. Utilize compression sleeve until seen at first follow up appointment. 5. Visiting nursing care. 6. Home physical therapy 7. Pain meds and anticoagulants per prescription. 8. Pain medication has potential to cause constipation. Increase oral fluid and fiber intake. Contact primary care provider if you have not had a bowel movement within 48 hours after discharge 9. No anti-inflammatory medication until discussed at first post operative visit, this including Motrin, Aleve, Mobic, Diclofenac 10. Follow up in office at 2 weeks postop with Bandar Su PA-C 11. Follow up with your primary care doctor 7-10 days after discharge. 12. Contact [facility] with any questions, . Procedures: Irrigation and debridement with repair right anterior hip wound Patient Condition at Discharge: Good Plan - Discharge Summary Discharge Rx Participant: Yes New Discharge Prescriptions: No Action Calcitriol 0.25 mcg PO SUTUTHSA buPROPion HCL [buPROPion HCL SR] 150 mg PO BID Potassium Chloride [Klor-Con 20] 20 meq PO BID Bisoprol/Hydrochlorothiazide [Bisoprolol-Hctz 10-6.25 mg Tab] 1 tab PO BID Levothyroxine Sodium [Synthroid] 50 mcg PO DAILY Pregabalin [Lyrica] 75 mg PO BID Cyclobenzaprine [Flexeril] 5 mg PO BID Allopurinol [Zyloprim] 300 mg PO DAILY Doxazosin [Cardura] 2 mg PO DAILY busPIRone HCL 15 mg PO BID Vit A/Vit C/Vit E/Zinc/Copper [ICAPS SOFTGEL] 1 cap PO DAILY Thyrostin 1 tab PO DAILY Cholecalciferol [Vitamin D3 (25 Mcg = 1000 Iu)] 1,000 unit PO DAILY Alloplex 1 tab PO DAILY Cyanocobalamin (Vitamin B-12) [Vitamin B-12] 1,000 mcg PO DAILY Cranberry Fruit Extract [Cranberry] 500 mg PO DAILY Cranactin 1 tab PO DAILY Aspirin [Adult Low Dose Aspirin EC] 81 mg PO BID #60 tablet. Docusate [Colace] 100 mg PO DAILY #30 capsule HYDROcodone/APAP 5-325MG [[place] 5-325] 1 tab PO Q6HR PRN PRN Reason: Pain Discharge Medication List Calcitriol 0.25 mcg PO SUTUTHSA 12/09/16 [History] Potassium Chloride [Klor-Con 20] 20 meq PO BID 12/09/16 [History] buPROPion HCL [buPROPion HCL SR] 150 mg PO BID 12/09/16 [History] Bisoprol/Hydrochlorothiazide [Bisoprolol-Hctz 10-6.25 mg Tab] 1 tab PO BID 08/14/17 [History] Levothyroxine Sodium [Synthroid] 50 mcg PO DAILY 03/30/18 [History] Cyclobenzaprine [Flexeril] 5 mg PO BID 10/18/18 [History] Pregabalin [Lyrica] 75 mg PO BID 10/18/18 [History] Alloplex 1 tab PO DAILY 11/29/18 [History] Allopurinol [Zyloprim] 300 mg PO DAILY 11/29/18 [History] Cholecalciferol [Vitamin D3 (25 Mcg = 1000 Iu)] 1,000 unit PO DAILY 11/29/18 [History] Cranactin 1 tab PO DAILY 11/29/18 [History] Cranberry Fruit Extract [Cranberry] 500 mg PO DAILY 11/29/18 [History] Cyanocobalamin (Vitamin B-12) [Vitamin B-12] 1,000 mcg PO DAILY 11/29/18 [History] Doxazosin [Cardura] 2 mg PO DAILY 11/29/18 [History] Thyrostin 1 tab PO DAILY 11/29/18 [History] Vit A/Vit C/Vit E/Zinc/Copper [ICAPS SOFTGEL] 1 cap PO DAILY 11/29/18 [History] busPIRone HCL 15 mg PO BID 11/29/18 [History] Aspirin [Adult Low Dose Aspirin EC] 81 mg PO BID #60 tablet.dr 01/30/19 [Rx] Docusate [Colace] 100 mg PO DAILY #30 capsule 01/30/19 [Rx] HYDROcodone/APAP 5-325MG [[place] 5-325] 1 tab PO Q6HR PRN 02/18/19 [History] Follow up Appointment(s)/Referral(s): Raymundo Silvestre MD [Primary Care Provider] - 02/25/19 1:00 pm Aramis Su PAC [PHYSICIAN CAMP HEAD COUNSELOR] - 03/06/19 1:30 pm Activity/Diet/Wound Care/Special Instructions: Orthopedic discharge instructions: 1. Keep incision dry and covered while showering 2. Do not remove Optifoam dressing 3. Weight-bear as tolerated 4. [facility]up at [facility] 10 days Discharge Disposition: HOME SELF-CARE
--- NOTE | 2019-02-19 13:46 | P.PN ---
Subjective Progress Note Date: 02/19/19 This patient was seen eval reexamined while covering for Dr. Silvestre patient underwent direct anterior right total hip arthroplasty on 01/28/19 had an area of incisional wound dehiscence. Has been admitted for revision and incision repair for past medical history significant for hypertension and rheumatoid arthritis and thyroid disorder which is stable review of the operative note revealed that the area of necrotic tissue measuring approximately 5 cm in length and a few millimeters in width. The depth of the debridement was approximately 0.5 cm. It appeared to be involving only the subcutaneous tissues it did not go any deeper than that. There was no involvement of the fascia or deep joint are a. There is no evidence of any infective process with no erythema Currently denies pain, well controlled . Passing flatus . Denies lightheadedness dizziness or focal deficits. Denies chest pain, palpitations or shortness of breath. Significant clinical improvement. Patient being discharged by orthopedic surgery. Objective - Vital Signs Vital signs: Vital Signs Temp 98.0 F 02/19/19 07:00 Pulse 70 02/19/19 07:00 Resp 18 02/19/19 07:25 BP 111/65 02/19/19 07:00 Pulse Ox 95 02/19/19 07:00 Intake & Output 02/18/19 02/19/19 02/19/19 18:59 06:59 18:59 Intake Total 901 800 Output Total 7 Balance 894 800 Weight 101.151 kg Intake: IV 701 Intake, IV Titration 600 Amount Lactated Ringers 1,000 ml 600 @ 50 mls/hr IV .Q20H [facility] Rx#:[id number] Oral 200 Other 200 Output: Estimated Blood Loss 7 Other: Voiding Method Toilet Toilet # Voids 1 - Exam Constitutional General appearance: cooperative, no acute distress - EENT Eyes: EOMI, PERRLA, poor dentition, normal appearance ENT: normal oropharynx Ears: bilateral: normal - Neck Thyroid: bilateral: normal size - Respiratory Respiratory: bilateral: CTA - Cardiovascular Rhythm: regular Heart sounds: normal: S1, S2 - Gastrointestinal General gastrointestinal: normal bowel sounds, soft - Integumentary Integumentary: normal turgor. Right extremity dressing clean dry and intact. No edema, extremity warm, pink, positive pulses. - Neurologic Neurologic: CNII-XII intact - Musculoskeletal Musculoskeletal: gait normal, generalized weakness, strength equal bilaterally - Psychiatric Psychiatric: A&O x's 3, appropriate affect, intact judgment & insight - Labs CBC & Chem 7: 02/19/19 06:15 02/18/19 08:30 Labs: Abnormal Lab Results - Last 24 Hours (Table) 02/19/19 Range/Units 06:15 RBC 3.10 L (3.80-5.40) m/uL Hgb 9.3 L D (11.4-16.0) gm/dL Hct 30.3 L (34.0-46.0) % MCHC 30.9 L (31.0-37.0) g/dL RDW 16.3 H (11.5-15.5) % Assessment and Plan Assessment: Wound dehiscence status post revision of right hip arthroplasty via anterior approach Hypertension Hypothyroidism Morbid obesity Severe degree of rheumatoid arthritis and with component of degenerative joint disease osteoarthritis Plan: Continue on current medication regime ,monitoring and symptomatic treatment. Pain management/Wound Care as per primary. Maintain aggressive pulmonary toileting ,Continue with incentive spirometer at home, every hour 10 while awake 2 weeks.Follow-up with PCP in 1 week. PT. The impression and plan of care has been dictated as directed. .: I performed a history and examination of this patient, discussed the same with the dictator. I agree with the dictator's note ,documented as a scribe. Any additional findings or plans will be noted.
== END 2019-02-19 14:39 | disposition home or self-care (01) ==
LOC: OR 07:55 → 4SSUR 11:16 → OR 02-19 14:39
PROVIDERS: ATTEND Orthopaedic Surgery
DX: I10 Essential (primary) hypertension (principal); M06.9 Rheumatoid arthritis, unspecified; E03.9 Hypothyroidism, unspecified; M10.9 Gout, unspecified; E66.01 Morbid (severe) obesity due to excess calories; Z68.36 Body mass index [BMI] 36.0-36.9, adult; Z87.891 Personal history of nicotine dependence; Z97.2 Presence of dental prosthetic device (complete) (partial); Z96.641 Presence of right artificial hip joint; Z96.653 Presence of artificial knee joint, bilateral; Z98.42 Cataract extraction status, left eye; Z98.41 Cataract extraction status, right eye; Z90.49 Acquired absence of other specified parts of digestive tract; Z98.84 Bariatric surgery status; Z83.6 Family history of other diseases of the respiratory system; Z80.3 Family history of malignant neoplasm of breast; Z80.42 Family history of malignant neoplasm of prostate; Z80.52 Family history of malignant neoplasm of bladder; Z79.82 Long term (current) use of aspirin; Z79.890 Hormone replacement therapy; Z79.899 Other long term (current) drug therapy; Z88.0 Allergy status to penicillin
CPT/HCPCS: 97161; 80051; 85025; 85027; 12020; J2250; J1100; J0690 ×2; J2405; J2001; J3010; J0330; J2704

== ENCOUNTER → 2020-05-04 | Outpatient (CLI) | payer MEDICARE ==
--- NOTE | 2020-05-05 10:13 | MM ---
Reason for exam: screening (asymptomatic). Last mammogram was performed 1 year ago. History: Patient is postmenopausal and is nulliparous. Family history of breast cancer in mother at age 42. Benign US biopsy breast VAD RT of the right breast, August 22, 2017. Benign stereotactic core biopsy of the right breast, January 10, 2002. Core biopsy of the right breast. Physical Findings: A clinical breast exam by your physician is recommended on an annual basis and results should be correlated with mammographic findings. MG 3D Screening Mammo W/Cad Bilateral CC and MLO view(s) were taken. Prior study comparison: May 02, 2019, bilateral MG 3d screening mammo w/cad. August 22, 2017, right breast MG diagnostic mammo RT wo CAD. Benign appearing bilateral calcifications. Previous mammotome biopsy in the right breast. There is chronic nodularity in the right breast. No significant changes when compared with prior studies. ASSESSMENT: Benign, BI-RAD 2 RECOMMENDATION: Routine screening mammogram of both breasts in 1 year.
== END | disposition home or self-care (01) ==
LOC: RADMAMWWP 10:45
PROVIDERS: ATTEND Family Medicine
DX: Z12.31 Encounter for screening mammogram for malignant neoplasm of breast (principal)
CPT/HCPCS: 77063; 77067

== ENCOUNTER → 2021-03-17 | Outpatient (CLI) | payer MEDICARE ==
--- NOTE | 2021-03-17 16:40 | CT ---
EXAMINATION TYPE: CT lumbar spine wo con DATE OF EXAM: 03/17/2021 COMPARISON: 11/29/2018 HISTORY: Lumbar neuritis. CT DLP: 1479.[address] of the lumbar spine was performed. Bone and soft tissue window settings are submitted as well as coronal and sagittal reconstructions. L1-L2: Severe degenerative disc space narrowing with grade 1 retrolisthesis L1 and L2 unchanged from prior study. Endplate sclerosis noted. Effacement ventral thecal sac without central stenosis or katina iation. Mild bilateral foraminal encroachment. L2-L3: Moderate degenerative disc space narrowing. Posterior disc bulge with effacement of the ventra l thecal sac and bilateral lateral recess stenosis. Facet joint arthropathy resulting in bilateral fo raminal encroachment. No central stenosis. L3-L4: Moderate degenerative disc space narrowing. Posterior disc bulge with effacement of the ventra l thecal sac and bilateral lateral recess stenosis. Facet joint arthropathy resulting in bilateral fo raminal encroachment. No central stenosis. L4-L5: Moderate degenerative disc space narrowing with posterior disc bulge. Hypertrophy ligamentum f lavum and facet joint arthropathy resulting in moderate central stenosis. L5-S1: Vacuum disc noted with endplate sclerosis. Posterior disc bulge with bilateral lateral recess stenosis and bilateral foraminal encroachment. No evidence for central stenosis. No paraspinal masses are identified. Lumbar segments are free if fracture. IMPRESSION: 1. Multilevel degenerative disc disease. 2. Moderate central stenosis L4-5. See above.
== END | disposition home or self-care (01) ==
LOC: RADCTMAIN 16:00
PROVIDERS: ATTEND Family Medicine
DX: M54.12 Radiculopathy, cervical region (principal); M51.36 Other intervertebral disc degeneration, lumbar region; M48.061 Spinal stenosis, lumbar region without neurogenic claudication
CPT/HCPCS: 72131

== ENCOUNTER → 2021-09-22 | Outpatient (CLI) | payer MEDICARE ==
--- NOTE | 2021-09-22 11:57 | CT ---
EXAMINATION TYPE: CT chest wo con DATE OF EXAM: 09/22/2021 COMPARISON: None HISTORY: cough CT DLP: 622 mGycm, Automated exposure control for dose reduction was used. CONTRAST: None TECHNIQUE: Axial images were obtained at 1 mm thick sections at 10 mm intervals. This will limit po rtions of the examination which may not be visualized within the [id number]. Images were obtained in the prone and supine views. FINDINGS: Portion of the thyroid visualized is normal. There is subtle diffuse extensive tiny punctate nodularity present greater on the right. This is nons pecific. A 0.3 cm nodules in the periphery of the right lateral lung base on the prone view. Small ir regular densities in the posterior right lung base on the prone view. Series 4 image 26. There is a m inimal linear opacity in the posterior right lung may be some atelectasis not evident in the prone po sition likely related to atelectasis. No enlarged mediastinal or hilar adenopathy is evident. The ascending aorta diameter at the level o f the main pulmonary artery is 4.0 cm. The main pulmonary artery diameter at the bifurcation is 2.[address] sections are obtained through the upper abdomen. Small hiatal hernia is present. Lap band is present. Consider prolapse through the lap band. IMPRESSIONS: 1. There is diffuse punctate nodularity probably through the right lung. This is nonspecific. Conside r infectious etiologies. Additional workup recommended 2. There are couple small peripheral right lung nodules, these should be followed in 6 months to reev aluate. 3. Possible lap band stomach prolapse. Additional evaluation recommended.
== END | disposition home or self-care (01) ==
LOC: RADCTMAIN 06:50
PROVIDERS: ATTEND Internal Medicine Critical Care Medicine
DX: R05.3 Chronic cough (principal)
CPT/HCPCS: 71250

== ENCOUNTER 2021-10-07 08:58 | Day surgery (SDC) | payer MEDICARE ==
[2021-10-06 09:29] VITALS: BMI 32.5
[2021-10-07] MEDS ORDERED: LACTATED RINGERS 1,000 ML IV SCH (09:47)
[2021-10-07 10:13] VITALS: TEMP 98.9
[2021-10-07 10:14] LABS: Glucose,Whole Blood 87 mg/dL (70-110)
[2021-10-07] MEDS ORDERED: LIDOCAINE 2% INJ 20 MG/ML (2 ML VIAL) ONE (10:28)
[2021-10-07] MEDS ORDERED: PROPOFOL 10 MG/ML 20 ML VIAL IV ONE (10:28)
--- NOTE | 2021-10-07 10:31 | P.GSHP ---
History of Present Illness H&P Date: 10/07/21 Chief Complaint: GERD This a 70-year-old female presents today for EGD. She is issues with GERD. Patient has previous history of LAP-BAND surgery Past Medical History Past Medical History: GERD/Reflux, Hypertension, Rheumatoid Arthritis (RA), Thyroid Disorder Additional Past Medical History / Comment(s): Gout. FREQ UTI. SCAR TISSUE ON LUNGS History of Any Multi-Drug Resistant Organisms: None Reported Past Surgical History: Appendectomy, Bariatric Surgery, Cholecystectomy, Hysterectomy, Joint Replacement Additional Past Surgical History / Comment(s): BILAT TKA, lap band, LT DOREEN, PAIN CLINIC PROCEDURE (nerve stimulation/block in back) RT DOREEN-01/28/19, SX FOR RT HIP WOUND POST DOREEN, BILAT CATARACT REMOVED, COLONOSCOPY, Past Anesthesia/Blood Transfusion Reactions: No Reported Reaction Smoking Status: Former smoker - Past Family History Mother Family Medical History: Cancer, Pulmonary Embolus Additional Family Medical History / Comment(s): breast cancer Father Family Medical History: Cancer Additional Family Medical History / Comment(s): bladder cancer/prostate cancer Medications and Allergies Home Medications Medication Instructions Recorded Confirmed Type Potassium Chloride [Klor-Con 20] 20 meq PO DAILY 12/09/16 10/06/21 History buPROPion HCL [buPROPion HCL SR] 150 mg PO BID 12/09/16 10/06/21 History Cyclobenzaprine [Flexeril] 5 mg PO BID 10/18/18 10/06/21 History Pregabalin [Lyrica] 75 mg PO BID 10/18/18 10/06/21 History Cranactin 1 tab PO DAILY 11/29/18 10/06/21 History Cyanocobalamin (Vitamin B-12) 1,000 mcg PO DAILY 11/29/18 10/06/21 History [Vitamin B-12] allopurinoL [Zyloprim] 300 mg PO DAILY 11/29/18 10/06/21 History busPIRone HCL 15 mg PO BID 11/29/18 10/06/21 History Bisoprolol [Zebeta] 5 mg PO DAILY 10/06/21 10/06/21 History Budesonide [Pulmicort Flexhaler] 2 puff INHALATION BID 10/06/21 10/06/21 History Colchicine 0.6 mg PO DAILY 10/06/21 10/06/21 History Escitalopram [Lexapro] 10 mg PO DAILY 10/06/21 10/06/21 History Levothyroxine Sodium 100 mcg PO DAILY 10/06/21 10/06/21 History Omeprazole 40 mg PO DAILY 10/06/21 10/06/21 History Tart [place] 50 mg PO DAILY 10/06/21 History predniSONE 10 mg PO DAILY 10/06/21 10/06/21 History Allergies Allergy/AdvReac Type Severity Reaction Status Date / Time No Known Allergies Allergy Verified 10/06/21 09:07 Surgical - Exam Vital Signs Temp Pulse Resp BP Pulse Ox 98.9 F 64 20 152/74 97 10/07/21 10:11 10/07/21 10:11 10/07/21 10:11 10/07/21 10:11 10/07/21 10:11 - General well developed, well nourished, no distress - Eyes PERRL - ENT normal pinna - Neck no masses - Respiratory normal expansion - Cardiovascular Rhythm: regular - Abdomen Abdomen: soft, non tender Assessment and Plan Assessment: GERD. We'll perform EGD.
--- NOTE | 2021-10-07 10:42 | P.OP ---
Date of Procedure: 10/07/21 Preoperative Diagnosis: GERD Postoperative Diagnosis: Antral gastritis Esophagitis Procedure(s) Performed: EGD Anesthesia: MAC Surgeon: Blaise Rosas Pathology: other (Antrum, esophagus) Condition: stable Disposition: PACU Description of Procedure: The patient's placed on the endoscopy table in the lateral position. She received IV sedation. The gastro-/oropharynx past esophagus and stomach. Scope was placed through the pylorus. The first and second portion of the duodenum appeared normal. Scope summer back the antrum was mildly inflamed. A biopsies performed. Scope was then retroflexed and the patient stomach appeared normal. The patient and previously placed LAP-BAND device. This was just below the GE junction. The proximal some appeared normal. There appeared to be evidence of esophagitis. A biopsy of the esophagus performed. The proximal esophagus.. Scope withdrawn for patient.
[2021-10-07 11:06] VITALS: BP 164/80; PULSE 60; RESP 16
== END 2021-10-07 11:26 | disposition home or self-care (01) ==
LOC: ORWHC2ENDO 08:58
PROVIDERS: ATTEND Surgery
DX: K21.00 Gastro-esophageal reflux disease with esophagitis, without bleeding (principal); K29.50 Unspecified chronic gastritis without bleeding; I10 Essential (primary) hypertension; M06.9 Rheumatoid arthritis, unspecified; E07.9 Disorder of thyroid, unspecified; M10.9 Gout, unspecified; Z98.84 Bariatric surgery status; Z87.440 Personal history of urinary (tract) infections; Z79.899 Other long term (current) drug therapy; Z79.890 Hormone replacement therapy; Z90.49 Acquired absence of other specified parts of digestive tract; Z90.710 Acquired absence of both cervix and uterus; Z96.653 Presence of artificial knee joint, bilateral; Z96.643 Presence of artificial hip joint, bilateral; Z87.891 Personal history of nicotine dependence; Z98.42 Cataract extraction status, left eye; Z98.41 Cataract extraction status, right eye; Z80.3 Family history of malignant neoplasm of breast; Z80.42 Family history of malignant neoplasm of prostate
CPT/HCPCS: 88305; 43239; J2704; J2001

== ENCOUNTER → 2021-10-18 | Outpatient (CLI) | payer MEDICARE ==
[2021-10-18 15:00] VITALS: BP 122/72; PULSE 70; TEMP 98.3; BMI 31.8
--- NOTE | 2021-10-29 11:17 | P.HPBAR ---
Bariatric H&P - History & Physicial H&P Date: 10/18/21 History & Physicial: Visit/CC: EGD f/u, lap band Patient initial contact: Initial weight: Initial weight in pounds: Height: 5 ft 6 in Initial BMI: Last weight: Current weight: 89.358 kg Current weight in pounds: 197.00 Current BMI: 31.8 [place] body weight (based on NIH guidelines): 58.967 kg Excess body weight loss: The patient is a 70 year-old F who presents for Bariatric Assessment. Patient presents today for bariatric follow-up. She's requesting a fill of her LAP- BAND. Past Medical History Past Medical History: Hypertension, Rheumatoid Arthritis (RA), Thyroid Disorder Additional Past Medical History / Comment(s): Gout. RT HIP INCISION SPLIT OPEN POST RT DOREEN History of Any Multi-Drug Resistant Organisms: None Reported Past Surgical History: Bariatric Surgery, Cholecystectomy, Hysterectomy, Joint Replacement Additional Past Surgical History / Comment(s): bilateral knee replacement, lap band, LT hip replacement, PAIN CLINIC PROCEDURE (nerve stimulation/block in back) RT DOREEN-01/28/19, BILAT CATARACT REMOVED Past Anesthesia/Blood Transfusion Reactions: No Reported Reaction Past Psychological History: Depression Smoking Status: Former smoker Past Alcohol Use History: Rare Additional Past Alcohol Use History / Comment(s): QUIT SMOKING 30 YEARS AGO Past Drug Use History: None Reported - Past Family History Mother Family Medical History: Cancer, Pulmonary Embolus Additional Family Medical History / Comment(s): breast cancer Father Family Medical History: Cancer Additional Family Medical History / Comment(s): bladder cancer/prostate cancer Surgical - Exam Vital Signs Temp Pulse BP 98.3 F 70 122/72 10/18/21 14:29 10/18/21 14:29 10/18/21 14:29 - General well developed, well nourished, no distress - Eyes PERRL - ENT normal pinna - Neck no masses - Respiratory normal expansion - Cardiovascular Rhythm: regular - Abdomen Abdomen: soft, non tender Bariatric Assessment & Plan Plan: Patient's LAP-BAND was adjusted. She answers 0.5 mL added to the band. She'll follow-up in 4 weeks. Bariatric Checklist Checklist: Plan: Checklist: EGD: 1. Hiatal hernia: 2. H. Pylori: HgbA1c: Vitamin D: Smoking: Former smoker Primary care physician referral: Dr. Estes Psychiatry clearance: Cardiology clearance: Sleep study: Diet journal: VTE risk score: VTE risk level: Rehab needs at discharge:
== END | disposition home or self-care (01) ==
LOC: BARWHC3 13:45
PROVIDERS: ATTEND Surgery
DX: Z48.815 Encounter for surgical aftercare following surgery on the digestive system (principal)
CPT/HCPCS: 99211

== ENCOUNTER → 2021-11-15 | Outpatient (CLI) | payer MEDICARE ==
[2021-11-15 13:59] VITALS: BP 119/66; PULSE 67; TEMP 98.2; BMI 32.1
--- NOTE | 2021-11-16 16:14 | P.HPBAR ---
Bariatric H&P - History & Physicial H&P Date: 11/16/21 History & Physicial: Visit/CC: EGD f/u Patient initial contact: Initial weight: Initial weight in pounds: Height: 5 ft 6 in Initial BMI: Last weight: Current weight: 90.265 kg Current weight in pounds: 199.00 Current BMI: 32.1 [place] body weight (based on NIH guidelines): 58.967 kg Excess body weight loss: The patient is a 71 year-old F who presents for Bariatric Assessment. Patient resents today for bariatric follow-up. She's requesting a fill of her band. 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 RT HIP INCISION SPLIT OPEN POST RT DOREEN History of Any Multi-Drug Resistant Organisms: None Reported Past Surgical History: Bariatric Surgery, Cholecystectomy, Hysterectomy, Joint Replacement Additional Past Surgical History / Comment(s): bilateral knee replacement, lap band, LT hip replacement, PAIN CLINIC PROCEDURE (nerve stimulation/block in back) RT DOREEN-01/28/19, BILAT CATARACT REMOVED Past Anesthesia/Blood Transfusion Reactions: No Reported Reaction Past Psychological History: Depression Smoking Status: Former smoker Past Alcohol Use History: Rare Additional Past Alcohol Use History / Comment(s): QUIT SMOKING 30 YEARS AGO Past Drug Use History: None Reported - Past Family History Mother Family Medical History: Cancer, Pulmonary Embolus Additional Family Medical History / Comment(s): breast cancer Father Family Medical History: Cancer Additional Family Medical History / Comment(s): bladder cancer/prostate cancer Surgical - Exam Vital Signs Temp Pulse BP 98.2 F 67 119/66 11/15/21 13:56 11/15/21 13:56 11/15/21 13:56 - General well developed, well nourished, no distress - Eyes PERRL - ENT normal pinna - Neck no masses - Respiratory normal expansion - Cardiovascular Rhythm: regular - Abdomen Abdomen: soft, non tender Bariatric Assessment & Plan Plan: Patient's LAP-BAND was adjusted. She has 0.5 mL added to the band. She currently is 2.9 mL in the band. She will follow-up in 4 weeks. Bariatric Checklist Checklist: Plan: Checklist: EGD: 1. Hiatal hernia: 2. H. Pylori: HgbA1c: Vitamin D: Smoking: Former smoker Primary care physician referral: Dr. Estes Psychiatry clearance: Cardiology clearance: Sleep study: Diet journal: VTE risk score: VTE risk level: Rehab needs at discharge:
== END | disposition home or self-care (01) ==
LOC: BARWHC3 13:15
PROVIDERS: ATTEND Surgery
DX: Z48.815 Encounter for surgical aftercare following surgery on the digestive system (principal)
CPT/HCPCS: 99211

== ENCOUNTER → 2021-12-20 | Outpatient (CLI) | payer MEDICARE ==
[2021-12-21 11:09] VITALS: BP 115/74; PULSE 61; TEMP 98.2; BMI 32.1
--- NOTE | 2022-01-03 15:10 | P.HPBAR ---
Bariatric H&P - History & Physicial H&P Date: 12/20/21 History & Physicial: Visit/CC: lap band follow up Patient initial contact: Initial weight: Initial weight in pounds: Height: 5 ft 6 in Initial BMI: Last weight: Current weight: 90.265 kg Current weight in pounds: 199.00 Current BMI: 32.1 [place] body weight (based on NIH guidelines): 58.967 kg Excess body weight loss: The patient is a 71 year-old F who presents for Bariatric Assessment. Patient presents today for Arana fall. She's requesting an adjustment of her band. She currently feels is too tight. 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 RT HIP INCISION SPLIT OPEN POST RT DOREEN History of Any Multi-Drug Resistant Organisms: None Reported Past Surgical History: Bariatric Surgery, Cholecystectomy, Hysterectomy, Joint Replacement Additional Past Surgical History / Comment(s): bilateral knee replacement, lap band, LT hip replacement, PAIN CLINIC PROCEDURE (nerve stimulation/block in back) RT DOREEN-01/28/19, BILAT CATARACT REMOVED Past Anesthesia/Blood Transfusion Reactions: No Reported Reaction Past Psychological History: Depression Smoking Status: Former smoker Past Alcohol Use History: Rare Additional Past Alcohol Use History / Comment(s): QUIT SMOKING 30 YEARS AGO Past Drug Use History: None Reported - Past Family History Mother Family Medical History: Cancer, Pulmonary Embolus Additional Family Medical History / Comment(s): breast cancer Father Family Medical History: Cancer Additional Family Medical History / Comment(s): bladder cancer/prostate cancer Surgical - Exam Vital Signs Temp Pulse BP 98.2 F 61 115/74 12/20/21 14:40 12/20/21 14:40 12/20/21 14:40 - General well developed, well nourished, no distress - Eyes PERRL - ENT normal pinna - Neck no masses - Respiratory normal expansion - Cardiovascular Rhythm: regular - Abdomen Abdomen: soft, non tender Bariatric Assessment & Plan Plan: Patient's LAP-BAND was adjusted. She had 0.4 mL removed from the band. She currently is 2.5 mL in the band. She'll follow-up in 4 weeks. Bariatric Checklist Checklist: Plan: Checklist: EGD: 1. Hiatal hernia: 2. H. Pylori: HgbA1c: Vitamin D: Smoking: Former smoker Primary care physician referral: Dr. Estes Psychiatry clearance: Cardiology clearance: Sleep study: Diet journal: VTE risk score: VTE risk level: Rehab needs at discharge:
== END | disposition home or self-care (01) ==
LOC: BARWHC3 13:25
PROVIDERS: ATTEND Surgery
DX: Z48.815 Encounter for surgical aftercare following surgery on the digestive system (principal)
CPT/HCPCS: 99212

== ENCOUNTER → 2022-02-15 | Outpatient (CLI) | payer MEDICARE ==
[2022-02-15 13:03] VITALS: BP 146/79; PULSE 60; RESP 16; TEMP 97.5; BMI 33.9
--- NOTE | 2022-02-15 13:32 | P.BASOAP ---
Subjective Progress Note Date: 02/15/22 Principal diagnosis: Morbid obesity Patient returns requesting a lap band fill. Patient says she has been gaining weight. She admits that she has been less active since her aunt is in a prison and she has been caring for her partly. Patient would like fluid added to her band. She was loosened from 2.9-2.5 mL recently because of nausea vomiting and reflux. Those symptoms have resolved. Objective - Vital Signs Vital signs: Vital Signs Temp 97.5 F L 02/15/22 12:58 Pulse 60 02/15/22 12:58 Resp 16 02/15/22 12:58 BP 146/79 02/15/22 12:58 Pulse Ox FiO2 Intake & Output 02/14/22 02/15/22 02/15/22 18:59 06:59 18:59 Weight 95.254 kg - Exam Abdomen: Soft, nontender, nondistended Assessment/Plan (1) Morbid obesity Narrative/Plan: Patient would like more fluid added to the band. Discussed options. We agreed to add 0.2 mL at this time. She will return if any recurrent reflux or vomiting symptoms develop. The patient's lap band port was palpated. The site was aseptically prepped. The Lee needle was advanced into the port. A total of 0.2 ml of fluid was added for a total of 2.7 mL. Pressure was held and a sterile dressing was applied. Plan: Date: 02/15/22 Initial Weight: 95.254 kg Initial BMI: 33.9 Current Weight: 95.254 kg Current BMI: 33.9 Type of Surgery: Adjustable Gastric Banding Total Volume in Band: 2.5 Previous Volume: Volume Removed: Volume Added: Band Size:
== END | disposition home or self-care (01) ==
LOC: BARWHC3 12:43
PROVIDERS: ATTEND Surgery
DX: E66.01 Morbid (severe) obesity due to excess calories (principal); Z68.33 Body mass index [BMI] 33.0-33.9, adult
CPT/HCPCS: 99212

== ENCOUNTER → 2022-05-09 | Outpatient (CLI) | payer MEDICARE ==
[2022-05-09 13:30] VITALS: BP 118/65; PULSE 66; RESP 18; TEMP 98.2
--- NOTE | 2022-05-09 15:24 | P.PAINPG ---
PQRS Measure Charge Sheet Comment: HISTORY OF PRESENT ILLNESS: 71 yr old female as a referral from Dr Silvestre presents today w severe and chronic LBP x 3 yrs secondary to lumbar stenosis, spondylosis and facet arthropathy without myelopathy for evaluation. Pt states pain level is at 5 /10 in intensity, constant, localized in the lower lumbar spine,tight, pressure in character w shooting pain towards the BLEs, R>L. Pain is provoked by standing/ walking for periods of 10 min or more, or lifting. Pain is alleviated by PT in 2019, massage therapy semi monthly, chiropractic treatments twice weekly until 2021, ice, meds (Tylenol ES), topicals, repositioning and rest. PMH: HTN, RA, Hypothyroidism, Gout, MDD PSH: Bariatric Surgery, Cholecystectomy, Hysterectomy, R Total Hip Arthroplasty (2019), BL Knee Replacement, L Hip Replacement, BL Cataract Resection SH: Former 30 pack/ yr tobacco user, Rare ETOH use, No illicit drug use FH: Mo- Breast CA. Fa- Bladder CA/ Prostate CA. All: NKDA Meds: See list REVIEW OF ORGAN SYSTEMS: CONSTITUTIONAL: No fevers or chills. No recent weight loss. NEUROLOGICAL: + numbness and tingling along the distal extremities. No seizure disorders or headaches. MUSCULOSKELETAL: + pain PSYCHIATRIC: Denies current depression or suicidal thoughts. Physical Examinations : Constitutional : Cooperative , not in acute distress . Neurologic : Cranial nerve II to XII intact. No focal neurological deficits. Psychiatric : alert & oriented x 3. Matching mood & appropriate affect. Judgment & insight intact. Musculoskeletal : Cervical Spine Motor strength in the deltoid and biceps: Normal right side. Normal Left side Motor strength biceps and the wrist extensors: Normal right side . Normal left side Motor strength in the triceps muscle: Normal right side. Normal left side Deep tendon reflexes: Normal at the biceps. Normal at Brachioradialis. Normal at triceps Vertebral body tenderness to deep palpation over Cervical facet loading test: positive bilaterally Spurling test: positive bilaterally Neck distraction test: positive bilaterally Alciia sign: positive bilaterally Lumbar spine Motor strength lower extremities ,thigh and legs 5/5 Right side , 5/5 Left side Deep tendon reflexes : Normal Knee Jerk. Normal Ankle Jerk Vertebral body tenderness over L5 Lumbar facet Loading Test: positive Right / positive Left Range of motion of the lumbar spine Flexion 30 degrees, extension 10 degrees Straight Leg Raise test: Left/ Right positive at degree Nunu test: positive right / positive left. Severe tenderness over the Sacroiliac joint on the Right / Left sides Gaenslen test: positive bilaterally Seated flexion test: positive bilaterally. Sacral spine : Severe tenderness over the Sacroiliac joint: right side / left side Range of motion: Flexion of the lumbar spine <60 degrees Range of motion: Extension of the lumbar spine <20 degrees Gaenslen's Test positive Dylan's Test positive Nunu test: positive right side / left side Thigh Thrust Test Sacral Thrust Test Imaging: MRI without contrast of the lumbar spine from 11/16/21 reviewed Assessment/ Plan : Lumbar stenosis, Lumbar DDD Recommendation of ALEXANDER L5-S1. May need a series of injections, up to 3 within a 6 mo period, for optimal pain relief. Risks, benefits of procedure discussed and patient verbalized understanding. Admits to aspirin or anti- coagulant use or medical history of diabetes. Protocol for discontinuation/ continuation of medications nico procedure discussed. All questions answered. I have spent greater than 30 minutes on patient care today. Dr Krishnan was available by phone for the evaluation of this patient. The time was used to review the medical records including relevant urine studies and Prescription history (MAPs), review of the available imaging, evaluation and examination of the patient, coordination of care with the medical staff and if applicable referring physicians, as well as creation of the medical record - Pain Location Bilateral Lower Back Non-Pharmacological Interventions: Ice, Position/Reposition, Sitting Pharmacological Interventions: PRN Medication, Topical Medication PQRS Narrative: Smoking Status Former smoker Home Medications: Ambulatory Orders Potassium Chloride [Klor-Con 20] 20 meq PO DAILY 12/09/16 buPROPion HCL [buPROPion HCL SR] 150 mg PO BID 12/09/16 Cyclobenzaprine [Flexeril] 5 mg PO BID 10/18/18 Pregabalin [Lyrica] 75 mg PO BID 10/18/18 Cranactin 1 tab PO DAILY 11/29/18 Cyanocobalamin (Vitamin B-12) [Vitamin B-12] 1,000 mcg PO DAILY 11/29/18 allopurinoL [Zyloprim] 300 mg PO DAILY 11/29/18 busPIRone HCL 15 mg PO BID 11/29/18 Bisoprolol [Zebeta] 5 mg PO DAILY 10/06/21 Budesonide [Pulmicort Flexhaler] 2 puff INHALATION BID 10/06/21 Colchicine 0.6 mg PO DAILY 10/06/21 Escitalopram [Lexapro] 10 mg PO DAILY 10/06/21 Levothyroxine Sodium 100 mcg PO DAILY 10/06/21 Omeprazole 40 mg PO DAILY 10/06/21 Tart [place] 50 mg PO DAILY 10/06/21 Controlled Substance Measures - Controlled Substance Measures Is patient prescribed a controlled substance at discharge?: No
== END ==
LOC: PNWHC3 12:28
PROVIDERS: ATTEND Specialist
DX: M51.36 Other intervertebral disc degeneration, lumbar region (principal); M48.061 Spinal stenosis, lumbar region without neurogenic claudication; Z87.891 Personal history of nicotine dependence
CPT/HCPCS: 99211

== ENCOUNTER → 2022-07-11 | Outpatient (CLI) | payer MEDICARE ==
[2022-07-11 14:41] VITALS: BP 126/85; PULSE 50; RESP 16; TEMP 98.3
--- NOTE | 2022-07-11 17:00 | P.PAINPG ---
PQRS Measure Charge Sheet Comment: A 71 yr old female with a history of severe and chronic LBP secondary to lumbar DDD and spondylosis with facet arthropathy without myelopathy presents today for evaluation s/p ALEXANDER L5-S1 #1. Pt states she experienced 70% pain relief x 2 days s/p procedure. Pain level is provoked at 8/10 in intensity, constant, localized in the lumbar spine, sharp in character w shooting towards the L and R flanks . Pain is provoked by walking/ standing for periods of 10 min. Pain is alleviated with PT x 4 wks in Dec 2021, massage therapy weekly x 6 wks in Dec 2021, chiropractic treatments three times weekly x 1 yr in Apr 2022, medications, topical, heat, ice, repositioning, sitting and rest. Interventional pain procedures completed include ALEXANDER L5-S1 x1 Patient is currently on Tyl, BioFreeze Patient denies any side effects of the medication(s), denies excessive drowsiness or sleepiness, denies suicidal ideation and reports that the current pain medication is helping to control the pain and improve activities of daily living. Patient denies any motor or sensory deficits. Patient denies any fever or night sweats, denies any change in the bowel movements or urination. Physical Examination: -Constitutional: Cooperative. Not in acute distress . - Neurologic: Cranial nerve II to XII intact. No focal neurological deficits. - Psychatric: Alert & oriented x 3. Matching mood & appropriate affect. Judgment and insight intact. - Musculoskeletal: Cervical spine: Muscle bulk/ tone/ strength in the bilateral upper extremities normal Vertebral body tenderness to palpation over Spurling test positive Distraction test positive Facet loading test positive TTP Thoracic spine Muscle bulk / tone/ strength in the bilateral paraspinal muscles normal Vertebral body tender to palpation over Facet loading test positive TTP Lumbar spine: Motor bulk/ tone/ strength lower extremities , thigh and legs : 5/5 Deep tendon reflexes : Normal Knee Jerk. Normal Ankle Jerk . Vertebral body tenderness to palpation over Lumbar Facet Loading Test positive jump reflex over BL L4-L5, L5-S1 facets Straight Leg Raise: positive at 30 degrees right side/ left side Gaenslen's Test positive Sacral spine : Severe tenderness over the Sacroiliac joint: right side / left side Range of motion: Flexion of the lumbar spine <60 degrees Range of motion: Extension of the lumbar spine <20 degrees Gaenslen's Test positive right side / left side Nunu test: positive right side / left side Thigh Thrust Test positive right side / left side Sacral Thrust Test positive right side / left side Assessment and plan: Chronic LBP secondary to lumbar DDD, spondylosis with facet arthropathy without myelopathy Recommendation of BL facet block of the medial branches L4-L5, L5-S1 #1. May need a series of injections, up until RFA, for optimal pain relief. Risks, benefits of procedure discussed and pt verbalized understanding. Admits to anticoagulant use or medical history of diabetes. Protocol for discontinuation/ continuation of medications nico procedure discussed. All questions answered. I have spent less than 30 minutes on patient care today. Dr Krishnan was available by phone for the evaluation of this patient. The time was used to review the medical records including relevant urine studies and Prescription history (MAPs), review of the available imaging, evaluation and examination of the patient, coordination of care with the medical staff and if applicable referring physicians, as well as creation of the medical record PQRS Narrative: Smoking Status Former smoker Hx Alcohol Use (MH) No Home Medications: Ambulatory Orders Potassium Chloride [Klor-Con 20] 20 meq PO DAILY 12/09/16 buPROPion HCL [buPROPion HCL SR] 150 mg PO BID 12/09/16 Cyclobenzaprine [Flexeril] 5 mg PO BID 10/18/18 Pregabalin [Lyrica] 75 mg PO BID 10/18/18 Cranactin 1 tab PO DAILY 11/29/18 Cyanocobalamin (Vitamin B-12) [Vitamin B-12] 1,000 mcg PO DAILY 11/29/18 allopurinoL [Zyloprim] 300 mg PO DAILY 11/29/18 busPIRone HCL 15 mg PO BID 11/29/18 Bisoprolol [Zebeta] 5 mg PO DAILY 10/06/21 Colchicine 0.6 mg PO DAILY 10/06/21 Escitalopram [Lexapro] 10 mg PO DAILY 10/06/21 Levothyroxine Sodium 100 mcg PO DAILY 10/06/21 Omeprazole 40 mg PO DAILY 10/06/21 Tart Kent 50 mg PO DAILY 10/06/21 Aspirin 81 mg PO DAILY 06/07/22 Controlled Substance Measures - Controlled Substance Measures Is patient prescribed a controlled substance at discharge?: No
== END ==
LOC: PNWHC3 13:46
PROVIDERS: ATTEND Specialist
DX: M51.36 Other intervertebral disc degeneration, lumbar region (principal); M47.816 Spondylosis without myelopathy or radiculopathy, lumbar region; G89.29 Other chronic pain; Z87.891 Personal history of nicotine dependence; Z79.82 Long term (current) use of aspirin
CPT/HCPCS: 99211

== ENCOUNTER 2022-08-05 06:43 | Day surgery (SDC) | payer MEDICARE ==
[~2022-08-05 06:43] MED LIST changes: -DEXAMETHASONE SOD PHOSPHATE 10 MG/ML 1 ML VIAL IV ONE; -HYDROmorphone 0.5 MG/0.5 ML SYRINGE IVP PRN; +LACTATED RINGERS 1,000 ML IV SCH; +LIDOCAINE 1% (10MG/ML) FOR IV START INTRADERMA PRN; -MIDAZOLAM 2 MG/2 ML VIAL IV PRN; -ONDANSETRON 4 MG/2 ML VIAL IVP ONE
[2022-08-05] MEDS ORDERED: LACTATED RINGERS 1,000 ML IV ONE (07:10)
[2022-08-05 07:20] VITALS: RESP 16; TEMP 98
[2022-08-05] MEDS ORDERED: methylPREDNISolone ACETATE 40 MG/ML 1 ML VIAL ONE (07:44)
[2022-08-05] MEDS ORDERED: ROPIVACAINE 5 MG/ML 20 ML AMPULE ONE (07:44)
[2022-08-05] MEDS ORDERED: MIDAZOLAM 2 MG/2 ML VIAL ONE (07:44)
--- NOTE | 2022-08-05 08:00 | P.PCN ---
Date of Procedure: 08/05/22 Procedure(s) Performed: PREOPERATIVE DIAGNOSIS : 1- Lumbar spondylosis with Facet Arthropathy without myelopathy . 2- Lumber degenerative disc disease POSTOPERATIVE DIAGNOSIS: 1- Lumbar spondylosis with Facet Arthropathy without myelopathy . 2- Lumber degenerative disc disease PROCEDURE: Diagnostic bilateral L3 , L4 , and L5 medial branch block under fluoroscopy guidance(fluoroscopy images available in the radiology Department ) ( To target the facet joint between bilateral L4-5 , and L5-S1 ) ANESTHESIA:, Monitored anesthesia care as per anesthesia department. EBL: Minimal COMPLICATION: None PROCEDURE INDICATION: Chronic low back pain secondary to Facet arthropathy unresponsive to conservative treatment. PROCEDURE DESCRIPTION: the patient was seen and identified in the preop holding area , risks and benefits and possible complications of the procedure and alternative were discussed with the patient, and the patient agreed to proceed with the procedure and signed the consent and vital signs monitored during the procedure and fluoroscopy was used to maximize the benefit and accuracy of the needle placement, and sedation was given to decrease patient anxiety, patient was taken to the procedure room and placed in prone position vital signs monitored in the back prepped with chlorhexidine X3 then under strict sterile technique using a right oblique fluoroscopy ,the junction of the transverse process and the superior articulating process of the right L3 , L4 , and L5 vertebra which corresponding to the fluoroscopy image of the eye of the Navdeep dog on the block side for the medial branches and subsequently , after local infiltration of skin and subcu tissuies with Ropivacaine 0.5 % , one mL at each level ,then 22-gauge Quincke-type needles , 3 needle was used , each one of them placed at the junction of the base of the transverse process and the superior articular process at the appropriate level, and the needle was advanced until the periosteum contacted, needle placement confirmed with AP oblique and lateral view and after appropriate needle placement confirmed, and after negative aspiration for heme and CSF and there was no paresthesia 1-1/2 mL of Ropivacaine 0.5% mixed with 20 mg Depo-Medrol , then half mL injected at each level after negative aspiration the needle subsequently removed and the same procedure repeated for the left side at left side at L3 , L4 and L5 levels. At the end of the procedure and the needles removed and a bandage applied after the skin was cleaned the cleaning solution patient taken to recovery room in stable condition and monitors in the recovery room for 20-30 minutes and discharged home in stable condition after discharge criteria met and patient will follow up with the pain clinic in 2-4 weeks
--- NOTE | 2022-08-05 08:11 | FL ---
Intraoperative/procedural fluoroscopic services were provided for bilateral lumbar facet block. Total fluoroscopy time is 10 seconds with a total of 4 submitted images to PACS. Total DAP 0.0282. Please see the operative note for further details.
[2022-08-05] MEDS ORDERED: IV FLUID CONTINUATION 1,000 ML IV ONE (08:13)
[2022-08-05 08:24] VITALS: BP 138/74; PULSE 67
== END 2022-08-05 08:48 | disposition home or self-care (01) ==
LOC: ORPAIN 06:43
PROVIDERS: ATTEND Specialist
DX: M51.36 Other intervertebral disc degeneration, lumbar region (principal); M47.816 Spondylosis without myelopathy or radiculopathy, lumbar region; G89.29 Other chronic pain; I10 Essential (primary) hypertension; E07.9 Disorder of thyroid, unspecified; Z79.82 Long term (current) use of aspirin; Z87.891 Personal history of nicotine dependence; Z79.899 Other long term (current) drug therapy
CPT/HCPCS: 64493; 64494 ×2; J2250; J1030; J2795

== ENCOUNTER 2022-08-20 10:15 | Emergency (ER) | payer MEDICARE ==
[2022-08-20 10:25] VITALS: TEMP 98.1
[2022-08-20] MEDS ORDERED: CEPHALEXIN 500MG STARTER PACK 4 CAP BTL PO STA (10:41)
[2022-08-20] MEDS ORDERED: LIDOCAINE 1% INJ 10MG/ML (30 ML VIAL-PF) SQ ONE (10:41)
[2022-08-20] MEDS ORDERED: DIPH,PERTUS(ACELL)TETVAC-LF 0.5 ML VIAL IM ONE (10:41)
[2022-08-20] MEDS ORDERED: CEPHALEXIN 500 MG CAP PO STA (10:41)
--- NOTE | 2022-08-20 11:21 | ED ---
Wound/Laceration HPI - General Chief Complaint: Wound/Laceration Stated Complaint: Thumb Lac Time Seen by Provider: 08/20/22 10:27 Source: patient, RN notes reviewed Mode of arrival: ambulatory Limitations: no limitations - History of Present Illness Initial Comments: This is a 71-year-old female who presents to the emergency department for a laceration to her right thumb. States that she was trying to clean out her furnace, causing this injury. She is not on any blood thinners. Pain is controlled at this time. Unsure when her last tetanus shot was. Denies any fevers, chills, sore throat, cough, dyspnea, chest pain, palpitations, abdominal pain, nausea, vomiting, diarrhea, back pain, or headaches. - Related Data Home Medications Medication Instructions Recorded Confirmed Potassium Chloride [Klor-Con 20] 20 meq PO DAILY 12/09/16 08/05/22 buPROPion HCL [buPROPion HCL SR] 150 mg PO BID 12/09/16 08/05/22 Cyclobenzaprine [Flexeril] 5 mg PO BID 10/18/18 08/05/22 Pregabalin [Lyrica] 75 mg PO BID 10/18/18 08/05/22 Cranactin 1 tab PO DAILY 11/29/18 08/05/22 Cyanocobalamin (Vitamin B-12) 1,000 mcg PO DAILY 11/29/18 08/05/22 [Vitamin B-12] allopurinoL [Zyloprim] 300 mg PO DAILY 11/29/18 08/05/22 busPIRone HCL 15 mg PO BID 11/29/18 08/05/22 Bisoprolol [Zebeta] 5 mg PO DAILY 10/06/21 08/05/22 Colchicine 0.6 mg PO DAILY 10/06/21 08/05/22 Escitalopram [Lexapro] 10 mg PO DAILY 10/06/21 08/05/22 Levothyroxine Sodium 100 mcg PO DAILY 10/06/21 08/05/22 Omeprazole 40 mg PO DAILY 10/06/21 08/05/22 Tart Kent 50 mg PO DAILY 10/06/21 08/05/22 Aspirin 81 mg PO DAILY 06/07/22 08/05/22 Previous Rx's Medication Instructions Recorded Cephalexin [Keflex] 500 mg PO Q6HR 5 Days #20 cap 08/20/22 Allergies Allergy/AdvReac Type Severity Reaction Status Date / Time No Known Allergies Allergy Verified 08/20/22 10:25 Review of Systems ROS Statement: Those systems with pertinent positive or pertinent negative responses have been documented in the HPI. ROS Other: All systems not noted in ROS Statement are negative. 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 RT HIP INCISION SPLIT OPEN POST RT DOREEN History of Any Multi-Drug Resistant Organisms: None Reported Past Surgical History: Bariatric Surgery, Cholecystectomy, Hysterectomy, Joint Replacement Additional Past Surgical History / Comment(s): bilateral knee replacement, lap band, LT hip replacement, PAIN CLINIC PROCEDURE (nerve stimulation/block in back) RT DOREEN-01/28/19, BILAT CATARACT REMOVED and crystal lens implants inserted,lap band x2-fluid present Past Anesthesia/Blood Transfusion Reactions: No Reported Reaction Additional Past Anesthesia/Blood Transfusion Reaction / Comment(s): no hx blood transfusion Past Psychological History: Depression Smoking Status: Former smoker Past Alcohol Use History: None Reported Past Drug Use History: None Reported - Past Family History Mother Family Medical History: Cancer, Pulmonary Embolus Additional Family Medical History / Comment(s): breast cancer-did not pass away with cancer Father Family Medical History: Cancer Additional Family Medical History / Comment(s): bladder cancer/prostate cancer,k idney removed-did not pass away of cancer General Exam Limitations: no limitations General appearance: alert, in no apparent distress Head exam: Present: atraumatic, normocephalic, normal inspection Respiratory exam: Present: normal lung sounds bilaterally. Absent: respiratory distress, wheezes, rales, rhonchi, stridor Cardiovascular Exam: Present: regular rate, normal rhythm, normal heart sounds. Absent: systolic murmur, diastolic murmur, rubs, gallop, clicks Neurological exam: Present: alert, oriented X3, CN II-XII intact Psychiatric exam: Present: normal affect, normal mood Skin exam: Present: other (3 cm vertical and somewhat jagged laceration over the middle dorsal aspect of the right thumb. There is a possible visible tendon.) Course Vital Signs 08/20/22 08/20/22 10:23 11:39 Temperature 98.1 F 98.1 F Pulse Rate 79 76 Respiratory 20 16 Rate Blood Pressure 155/70 140/79 O2 Sat by Pulse 96 97 Oximetry Procedures - Laceration Laceration #1 Consent Obtained: verbal consent Indication: laceration Site: other (right thumb) Size (cm): 3 Description: linear, stellate Depth: simple, single layer Anesthetic Used: lidocaine 1% Anesthesia Technique: local infiltration Amount (mls): 3 Pre-repair: irrigated extensively Type of Sutures: nylon Size of Sutures: 5-0 Number of Sutures: 3 Technique: simple, interrupted Medical Decision Making - Medical Decision Making This is a 71-year-old female who presents to the emergency department for a l aceration. Was pt. sent in by a medical professional or institution? @ -No Did you speak to anyone other than the patient for history? @ -No Did you review nursing and triage notes? @ -Yes, and I agree, it is accurate with regards to the patient's symptoms. Were old charts reviewed? @ -No Differential Diagnosis? @ -Not applicable What testing was considered but not performed? (CT, X-rays, U/S, labs)? Why? @ -None What meds were considered but not given? Why? @ -None Did you discuss the management of the patient with other professionals? @ -No Did you reconcile home meds? @ -No Was smoking cessation discussed for >3mins.? @ -No Was critical care preformed (if so, how long)? @ -No Were there social determinants of health that impacted care today? How? (Homelessness, low income, unemployed, alcoholism, drug addiction, transportation, low edu. Level, literacy, decrease access to med. care, longterm, rehab)? @ -No Was there de-escalation of care discussed even if they declined? (Discuss DNR or withdrawal of care, Hospice)? @ -No What co-morbidities impacted this encounter? (DM, HTN, Smoking, COPD, CAD, Cancer, CVA, Hep., AIDS, mental health diagnosis, sleep apnea, morbid obesity)? @ -HTN Was patient admitted / discharged? @ -Discharged. Tetanus status was updated. Laceration was repaired with sutures. Given that there was a possible exposed tendon, will treat the patient with Keflex for infectious prophylaxis. Prescription for Keflex provided with dosing instructions reviewed. Otherwise advised ibuprofen and Tylenol as needed for pain relief. She is instructed to return in 5-7 days for suture removal. Undiagnosed new problem with uncertain prognosis? @ -None Drug Therapy requiring intensive monitoring for toxicity (Heparin, Nitro, Insulin, Cardizem)? @ -None Were any procedures done? @ -Yes, laceration repair with sutures. Diagnosis/symptom? @ -Thumb laceration Acute, or Chronic, or Acute on Chronic? @ -Acute Uncomplicated (without systemic symptoms) or Complicated (systemic symptoms)? @ -Uncomplicated Side effects of treatment? @ -None Exacerbation, Progression, or Severe Exacerbation] @ -Not applicable Poses a threat to life or bodily function? @ -No Return precautions reviewed in depth, the patient is instructed to return to the emergency department with any new, worsening, or concerning symptoms. Patient verbalized understanding. This case was discussed in detail with the attending ED physician, Dr. Spann. Presentation, findings, and treatment plan discussed in detail as well. Disposition Clinical Impression: Laceration Disposition: HOME SELF-CARE Instructions (If sedation given, give patient instructions): Care For Your Stitches (ED) Additional Instructions: Return to the emergency department with any new, worsening, or concerning symptoms and in 5-7 days for removal of the stitches. Alternate with ibuprofen and Tylenol as needed for pain relief. You can continue to apply ice if you find it beneficial. Prescriptions: Cephalexin [Keflex] 500 mg PO Q6HR 5 Days #20 cap Is patient prescribed a controlled substance at d/c from ED?: No Referrals: Raymundo Silvestre MD [Primary Care Provider] - 1-2 days
[2022-08-20 11:41] VITALS: BP 140/79; PULSE 76; RESP 16
== END 2022-08-20 11:41 | disposition home or self-care (01) ==
LOC: EC 10:15
DX: S61.011A Laceration without foreign body of right thumb without damage to nail, initial encounter (principal); I10 Essential (primary) hypertension; E07.9 Disorder of thyroid, unspecified; F32.A Depression, unspecified; Z79.82 Long term (current) use of aspirin; Z79.890 Hormone replacement therapy; Z79.899 Other long term (current) drug therapy; Z87.891 Personal history of nicotine dependence; Z23 Encounter for immunization; X16.XXXA Contact with hot heating appliances, radiators and pipes, initial encounter; Y99.9 Unspecified external cause status
CPT/HCPCS: 90715; 12002; 99282; 90471; J2001

== ENCOUNTER → 2022-08-24 | Outpatient (CLI) | payer MEDICARE ==
[2022-08-24 13:01] VITALS: BP 115/77; PULSE 67; RESP 18; TEMP 97.9
--- NOTE | 2022-08-24 14:36 | P.PAINPG ---
PQRS Measure Charge Sheet Comment: A 71 yr old female with a history of severe and chronic LBP secondary to lumbar DDD and spondylosis with facet arthropathy without myelopathy presents today for evaluation s/p BL MBB L4-L5, L5-S1. Pt states she experienced 70 % pain relief x 1 day s/p procedure. Pain level is provoked at 10/10 in intensity , constant, localized in the lower lumbar spine, sharp in character w shooting towards the BLEs. Pain is provoked by standing/ walking for periods of 10 min or more. Pain is alleviated with medications, injections, ice, heat, PT 8 weeks in January 2021, chiropractic treatments semiweekly 1 year in 2021, massage therapy weekly 1 month in 2021, sitting and rest. Interventional pain procedures completed include BL MBB L3-L5 x1, ALEXANDER L5-S1 x1 Patient is currently on Tyl Patient denies any side effects of the medication(s), denies excessive drowsiness or sleepiness, denies suicidal ideation and reports that the current pain medication is helping to control the pain and improve activities of daily living. Patient denies any motor or sensory deficits. Patient denies any fever or night sweats, denies any change in the bowel movements or urination. Physical Examination: -Constitutional: Cooperative. Not in acute distress . - Neurologic: Cranial nerve II to XII intact. No focal neurological d eficits. - Psychatric: Alert & oriented x 3. Matching mood & appropriate affect. Judgment and insight intact. - Musculoskeletal: Cervical spine: Muscle bulk/ tone/ strength in the bilateral upper extremities normal Vertebral body tenderness to palpation over Spurling test positive Distraction test positive Facet loading test positive TTP Thoracic spine Muscle bulk / tone/ strength in the bilateral paraspinal muscles normal Vertebral body tender to palpation over Facet loading test positive TTP Lumbar spine: Motor bulk/ tone/ strength lower extremities , thigh and legs : 5/5 Deep tendon reflexes : Normal Knee Jerk. Normal Ankle Jerk . Vertebral body tenderness to palpation over L5 Lumbar Facet Loading Test positive over L5-S1 Straight Leg Raise: positive at 30 degrees right side> left side Gaenslen's Test positive Sacral spine : Severe tenderness over the Sacroiliac joint: right side / left side Range of motion: Flexion of the lumbar spine <60 degrees Range of motion: Extension of the lumbar spine <20 degrees Gaenslen's Test positive right side / left side Nunu test: positive right side / left side Thigh Thrust Test positive right side / left side Sacral Thrust Test positive right side / left side Assessment and plan: Chronic LBP secondary to lumbar DDD, spondylosis with facet arthropathy without myelopathy Recommendation of BL TFESI L5-S1 #1. May need a series of injections for optimal pain relief. Risks, benefits of procedure discussed and pt verbalized understanding. Admits to anticoagulant use or medical history of diabetes. Protocol for discontinuation/ continuation of medications nico procedure discussed. All questions answered. I have spent less than 30 minutes on patient care today. Dr Krishnan was available by phone for the evaluation of this patient. The time was used to review the medical records including relevant urine studies and Prescription history (MAPs), review of the available imaging, evaluation and examination of the patient, coordination of care with the medical staff and if applicable referring physicians, as well as creation of the medical record PQRS Narrative: Smoking Status Former smoker Hx Alcohol Use (MH) No Home Medications: Ambulatory Orders Potassium Chloride [Klor-Con 20] 20 meq PO DAILY 12/09/16 buPROPion HCL [buPROPion HCL SR] 150 mg PO BID 12/09/16 Cyclobenzaprine [Flexeril] 5 mg PO BID 10/18/18 Pregabalin [Lyrica] 75 mg PO BID 10/18/18 Cranactin 1 tab PO DAILY 11/29/18 Cyanocobalamin (Vitamin B-12) [Vitamin B-12] 1,000 mcg PO DAILY 11/29/18 allopurinoL [Zyloprim] 300 mg PO DAILY 11/29/18 busPIRone HCL 15 mg PO BID 11/29/18 Bisoprolol [Zebeta] 5 mg PO DAILY 10/06/21 Colchicine 0.6 mg PO DAILY 10/06/21 Escitalopram [Lexapro] 10 mg PO DAILY 10/06/21 Levothyroxine Sodium 100 mcg PO DAILY 10/06/21 Omeprazole 40 mg PO DAILY 10/06/21 Tart Kent 50 mg PO DAILY 10/06/21 Aspirin 81 mg PO DAILY 06/07/22 Cephalexin [Keflex] 500 mg PO Q6HR 5 Days #20 cap 08/20/22 Controlled Substance Measures - Controlled Substance Measures Is patient prescribed a controlled substance at discharge?: No
== END ==
LOC: PNWHC3 12:35
PROVIDERS: ATTEND Anesthesiology
DX: M51.36 Other intervertebral disc degeneration, lumbar region (principal); M47.816 Spondylosis without myelopathy or radiculopathy, lumbar region; G89.29 Other chronic pain; Z87.891 Personal history of nicotine dependence; Z79.82 Long term (current) use of aspirin
CPT/HCPCS: 99211

== ENCOUNTER 2022-10-06 08:43 | Day surgery (SDC) | payer MEDICARE ==
[~2022-10-06 08:43] MED LIST changes: -LIDOCAINE 1% (10MG/ML) FOR IV START INTRADERMA PRN
[2022-10-06 08:59] VITALS: RESP 16; TEMP 98
[2022-10-06] MEDS ORDERED: methylPREDNISolone ACETATE 80 MG/ML 1 ML VIAL ONE (09:32)
[2022-10-06] MEDS ORDERED: IOPAMIDOL M200 10 ML VIAL ONE (09:32)
--- NOTE | 2022-10-06 09:45 | P.PCN ---
Date of Procedure: 10/06/22 Procedure(s) Performed: PREOPERATIVE DIAGNOSIS: 1-Lumbar radiculopathy . 2-lumbar degenerative disc disease. 3-lumbar spondylosis with lumbar facet arthropathy without myelopathy POSTOPERATIVE DIAGNOSIS: 1-lumbar radiculopathy. 2-lumbar degenerative disc disease. 3-lumbar spondylosis with facet arthropathy without myelopathy PROCEDURE 1. Transforaminal epidural steroid injection under fluoroscopic guidance at bilateral [id number]. (Fluoroscopy images stored on file in the radiology Department ) 2. Lumbar epidurogram . ANESTHESIA: Local with 1% lidocaine 3 m . EBL: Minimal PROCEDURE INDICATION: The patient with low back pain and radiculopathy symptoms unresponsive to conservative treatment. PROCEDURE DESCRIPTION / TECHNIQUE: The patient was seen and identified in the preoperative area. Risks, benefits, complications, and alternatives were discussed with the patient. The patient agreed to proceed with the procedure and signed the consent. IV was started, and vital signs were stable. Patient was taken to the OR and time out was completed. The patient was placed in the prone position on procedure table and a pillow was placed under the abdomen to reduce lumbar lordosis. The lumbosacral area was prepped and draped in the usual sterile fashion. Critical pause was taken. Vital signs were closely monitored during the procedure. Conscious sedation was used during the procedure to decrease patient s anxiety. Using oblique fluoroscopy, the chin of the `Kamy dog at right L5-S1 level was identified, and the skin and deeper tissues just below was localized with 1% lidocaine. Subsequently, a 22-gauge 5-inch spinal needle was advanced under a tunneled view fluoroscopic guidance just underneath the chin of the `Kamy dog at the right L5-S1 Under lateral fluoroscopy, the needle was then advanced to the posterior border of the interforaminal space. After negative aspiration of CSF and blood and with no paresthesias, 1 mL Isovue 300 contrast dye was injected excellent epidurogram and outlining of the nerve root Subsequently, 3 mL of block solution containing 30 mg Depo-Medrol and 2 mL of 0.9% normal saline PF was injected. Needle was removed and the same procedure was repeated at the left L5-S1 level . At the end of the procedure, skin was cleansed, and bandages were applied. COMPLICATIONS:none DISPOSITION / PLANS: The patient was placed in a supine position and transferred to the recovery area in a stable condition for observation. There was no evidence of lower extremity motor or sensory deficit after the procedure. Patient was discharged from the recovery room after meeting discharge criteria. Home discharge instructions were given to the patient by the staff. The patient was reexamined prior to discharge.
[2022-10-06 09:49] VITALS: PULSE 71
--- NOTE | 2022-10-06 09:52 | FL ---
Intraoperative/procedural fluoroscopic services were provided for bilateral lumbar transforaminal inj ection. Total fluoroscopy time is 9.9 seconds with a total of 2 submitted images to PACS. Total DAP 0 .52519 mGym2. Please see the operative note for further details.
[2022-10-06 10:06] VITALS: BP 123/73
== END 2022-10-06 10:07 | disposition home or self-care (01) ==
LOC: ORPAIN 08:43
PROVIDERS: ATTEND Specialist
DX: M51.16 Intervertebral disc disorders with radiculopathy, lumbar region (principal); M47.26 Other spondylosis with radiculopathy, lumbar region; Z79.82 Long term (current) use of aspirin
CPT/HCPCS: 64483; J1040; Q9966

== ENCOUNTER → 2022-11-30 | Outpatient (CLI) | payer MEDICARE ==
--- NOTE | 2022-11-30 10:21 | CT ---
EXAMINATION TYPE: CT lumbar spine wo con DATE OF EXAM: 11/30/2022 10:00 AM COMPARISON: 03/17/2021 HISTORY: Lumbar spondylosis with radiculopathy CT DLP: 1220 mGycm Automated exposure control for dose reduction was used. Unenhanced CT of the lumbar spine was performed. Bone and soft tissue window settings are submitted as well as coronal and sagittal reconstructions. L1-L2: Severe degenerative disc space narrowing and vacuum disc and endplate sclerosis. Grade 1 retro listhesis of 4.2 mm versus 4.2 mm previously. No evidence of disc herniation or central stenosis. L2-L3: Moderate disc space narrowing with circumferential disc bulge and resultant effacement of the ventral thecal sac. Left lateral recess stenosis and bilateral foraminal encroachment noted. No centr al stenosis at this time. Facet joint arthropathy. L3-L4: Moderate disc space narrowing with circumferential disc bulge and resultant effacement of the ventral thecal sac. Left lateral recess stenosis and bilateral foraminal encroachment noted. No centr al stenosis at this time. Facet joint arthropathy. L4-L5: Moderate disc space narrowing. Moderate circumferential disc bulge with greater component para centrally into the right reflect disc herniation. There is hypertrophy of the ligamentum flavum and f acet joint arthropathy demonstrating at least moderate central stenosis. There is mild bilateral neur al foraminal encroachment. L5-S1: Severe degenerative disc disease with vacuum disc. Posterior disc bulge. Bilateral lateral rec ess stenosis right greater than left. Facet joint arthropathy with moderate left greater than right f oraminal encroachment. No evidence for felipe central stenosis. No paraspinal masses are identified. Lumbar segments are intact. Ventral spondylosis. Nonobstructing left-sided nephrolithiasis. IMPRESSION: 1. Multilevel degenerative disc disease as outlined above. 2. 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 There may be a new right paracentral disc herniation. See above.
== END | disposition home or self-care (01) ==
LOC: RADCTMAIN 09:30
PROVIDERS: ATTEND Orthopaedic Surgery
DX: M47.26 Other spondylosis with radiculopathy, lumbar region (principal); M51.16 Intervertebral disc disorders with radiculopathy, lumbar region; M99.73 Connective tissue and disc stenosis of intervertebral foramina of lumbar region
CPT/HCPCS: 72131

== ENCOUNTER → 2022-12-09 | Outpatient (CLI) | payer MEDICARE ==
--- NOTE | 2022-12-09 13:37 | MR ---
EXAMINATION TYPE: MR lumbar spine wo con DATE OF EXAM: 12/09/2022 COMPARISON: 03/12/2018 HISTORY: Lower back pain, radiates into buttocks/thighs. TECHNIQUE: Multiplanar, multisequence images of the lumbar spine were acquired without IV contrast. L1-L2: Severe disc desiccation with posterior disc bulge. Mild effacement ventral thecal sac without evidence for herniation or central stenosis. Severe facet joint arthropathy resulting in severe bilat eral foraminal encroachment. Ventral spondylosis. L2-L3: Moderate to severe disc desiccation with posterior disc bulge. Effacement ventral thecal sac. Grade 1 retrolisthesis L2 on L3 measuring 4 mm. Severe facet joint arthropathy. Resultant mild centra l stenosis and right lateral recess stenosis. L3-L4: Moderate disc desiccation with posterior disc bulge. Effacement ventral thecal sac. Hypertroph y of the ligamentum flavum and facet joint arthropathy resulting in mild central stenosis. Grade 1 an terolisthesis L3 on L4 measuring 2 mm. Severe facet joint arthropathy with bilateral foraminal encroa chment. L4-L5: Moderate disc desiccation with posterior disc bulge. Hypertrophy of the ligamentum flavum and facet joint arthropathy resulting in borderline central stenosis. Left greater than right foraminal e ncroachment. Bilateral lateral recess stenosis. L5-S1: Severe disc desiccation mild posterior disc bulge. There is bilateral lateral recess stenosis and severe foraminal encroachment bilaterally. Facet joint arthropathy. No evidence for herniation or central stenosis. Lumbar segments are intact. No paraspinal masses are identified. Conus medullaris has a normal appe arance. IMPRESSION: 1. Multilevel degenerative disc disease as outlined above.
== END | disposition home or self-care (01) ==
LOC: RADMRIMAIN 11:24
PROVIDERS: ATTEND Orthopaedic Surgery
DX: M47.26 Other spondylosis with radiculopathy, lumbar region (principal); M51.16 Intervertebral disc disorders with radiculopathy, lumbar region; M43.16 Spondylolisthesis, lumbar region; M99.73 Connective tissue and disc stenosis of intervertebral foramina of lumbar region
CPT/HCPCS: 72148

== ENCOUNTER 2023-01-03 06:06 | Day surgery (SDC) | payer MEDICARE ==
[2023-01-02 13:37] VITALS: BMI 36.1
[~2023-01-03 06:06] MED LIST changes: -LACTATED RINGERS 1,000 ML IV SCH; +Pre Op ABX Message 1 EACH MISC MISCELLANE ONE
--- NOTE | 2023-01-03 06:39 | P.HPOR ---
History of Present Illness H&P Date: 01/12/23 .D:Date: 12/12/22 : 04:11pm .T:Title: *[facility] Date of :[birth year] [id number]: NKDA Age: 71 year Height: 5'6" Weight: 199 lbs BP:125/81 BMI: 32.12 kg/m2 Occupation: Retired VAS: 10 CHIEF COMPLAINT: Re-check on low back pain / Review results from MRI and CT scan of the lumbar spine DOI:None DOS: None Duration of current treatment regiment:None HISTORY : Xrays No new xrays taken in office Trauma or injury No Work-Related No Pain description Aching, sharp, shooting, increasing Location Posterior Activity Modification Yes Hand Dominance Right TREATMENTS COMPLETED: 6 weeks of PT completed? Yes Any relief: No, made her symptoms worse Physician recommended home exercise completed? Duration of HEP course: Current Yes, without relief Medications Yes List: Tylenol Alternative interventions Chiropractic:No Massage therapy: No R.I.C.E:Yes Brace:No Injections ALEXANDER on 06/09/2022 with relief, Facet block on 08/05/2022 with relief, RFA on unknown date with no relief SUBJECTIVE: Ms. Yarbrough returns to the office today for a re-check on her low back pain and to review recent MRI and CT scan results of the lumbar spine. The patient notes continued pain throughout the low back that radiates down into the buttocks and left lower extremity with a sharp, shooting quality. She reports worsening numbness and tingling throughout the left lower extremity. She states her pain persists mostly around the posterior aspect of the left leg. The patient notes that all of her symptoms have worsened significantly since she was last evaluated in office approximately 1 month ago. The patient states her symptoms are now exacerbated by all activity, making it very difficult for her to complete any of her daily activities. The patient reports experiencing severe sleep disturbances related to her ongoing pain and associated symptoms. The patient notes that her symptoms have started to become intractable. The patient has trialed conservative treatment in the form of physical therapy, physician directed at home stretches and exercises, activity modification, at home heat/ice therapies, several lumbar epidural steroid injections and facet blocks, and medication management, all with no significant or sustained relief. The patient is currently taking Tylenol with very mild relief. She also takes Aspirin 81 mg daily. Otherwise the patient denies any f/c/sob/cp, no incision concerns, no bladder or bowel retention/incontinence, no perineal numbness/tingling, and ambulates independently when going short distances and utilizes a cane for long distances. HPI: Ms. Yarbrough returns to the office on 11/16/2022 for a re-check on her low back pain. The patient reports experiencing a continued ache-like pain throughout the low back that radiates down into the bilateral lower extremities. She notes that her lower extremity symptoms are associated with numbness, tingling, and weakness. She reports an increase in the occurrence of falls at home due to her worsening lower extremity symptoms. She states that her symptoms are exacerbated by prolonged walking and standing,which makes it very difficult for her to complete any of her regular activities. She reports experiencing moderate to severe sleep disturbances related to her ongoing pain and associated symptoms. The patient has trialed conservative treatment in the form of physical therapy, physician directed at home stretches and exercises, activity modification, at home heat/ice therapies, lumbar epidural steroid injections, and medication management, all with no significant or sustained relief. The patient is currently taking Celebrex, Lyrica, and FLexeril with very mild relief of her symptoms. Otherwise the patient denies any f/c/sob/cp, no incision concerns, no bladder or bowel retention/incontinence, no perineal numbness/tingling, and ambulates independently when going short distances and utilizes a cane for long distances. Ms. Yarbrough returns to the office on 09/05/2022 for a recheck of their low back pain. Since the time of the last appointment the patient reports an increase in lumbar pain and radiculopathy following a recent fall on 01/30/22. In addition to their lumbar pain, they do report that it radiates into the bilateral lower extremities (L>R), associated with numbness and tingling through the legs diffusely. Overall the patient has seen a progressive increase in symptoms since their onset. Ms. Yarbrough symptoms are exacerbated with prolonged standing and ambulation, due to this they notes that it is increasingly difficult for Ms. Yarbrough to complete many of their daily tasks. Patient is having moderate sleep disturbances as well due to their ongoing pain and associated symptoms. Regarding treatments, the patient has previously triafed home exercises and medications without relief of her symptoms. Patient previously received a ALEXANDER injections on 06/09/2022 with relief, Facet injections on 08/05/2022 with relief, and RFA on an unknown date with relief. For their symptoms, the patient has been taking Tylenol, Flexeril, and Lyrica all without relief of her symptoms. Otherwise the patient denies any f/c/sob/cp, no incision concerns, no bladder or bowel retention/incontinence, no perineal numbness/tingling, and ambulates independently. The patients' past social, medical, family, surgical history, as well as review of systems, have been reviewed. Please refer to the Neurosurgery History and Physical form that has been scanned in to our electronic medical record system. 16 points review of systems completed and as stated in HPI, all other systems reviewed are negative. P3 Social History: Smoking: former smoker P3 Alcohol:none Family History: Reviewed, see appropriate section of the chart for details. P2 Past Medical History: Reviewed, see appropriate section of the chart for details. [id number] Medications: Rx: allopurinoL Ref: 0 Rx: aspirin Ref: 0 Rx: BUSPIRONE HCL 15MG ORAL Tablet, Ref: 0 Rx: CALCIFOL 1342-1.6MG ORAL Wafer, Ref: 0 Rx: CYCLOBENZAPRINE HCL 5MG ORAL Tablet, Ref: 0 Rx: DOXAZOSIN MESYLATE 2MG ORAL Tablet, Ref: 0 Rx: LEVOTHYROXINE SODIUM 50MCG ORAL Tablet, Ref: 0 Rx: Lyrica Ref: 0 Rx: buPROPion HCL SR 100 mg tablet,12 hr sustained-release Ref: 0 Rx: escitalopram 10 mg tablet Ref: 0 Rx: potassium chloride ER 20 mEq tablet,extended release Ref: 0 Rx: TylenoL Ref: 0 P1 PHYSICALEXAMINATION: General:Awake, alert, appropriate for age, in no acute distress. HEENT:No unusual neck masses around region of lateral neck triangle, thyroid, supraclavicular groove Heart:Regular rate and rhythm, normal S1, S2 and no murmur/gallop. Lungs:Clear to auscultation bilaterally with no use of accessory muscles. Extremities:Skin warm and dry without acute lesions, coloration, temperature, skin intact, no tenderness or erythema Integument: Hairy patches:ABSENT Dorsal skin dimples:ABSENT Cafe au lait spots:ABSENT Palpation: Please see Pain drawing on Intake sheet for further detail. Midline spinal tenderness: No E6 Cervical Tenderness: No E6 Paralumbar tenderness:Yes E6 Parathoracic tenderness:No E6 Buttocks tenderness:No E6 Sacroiliac tenderness: Yes, left side POSTURAL and MUSCULO-SKELETAL EVALUATION: Coronal Balance: NEUTRAL Recumbent testing: Patient is able to lay flat on back Sagittal Balance: NEUTRAL Shoulder Profile: LEVEL Pelvic Girdle: LEVEL Neck ROM: UNRESTRICTED Lumbar ROM: RESTRICTED Shoulder ROM: Symmetrical Hip ROM: Symmetrical Knee ROM: Symmetrical Hands: Normal appearance, symmetrical Feet: Normal appearance, Symmetrical VASCULAR STATUS : LEFTRIGHT Wrist Pulses INTACT INTACT Pedal Pulses (Dors. pedis & post.tibialis) INTACT INTACT Color NORMAL NORMAL Edema Absent Absent NEUROLOGICEXAMINATION: Mental Status:Awake and alert, fully oriented, with normal attention, concentration and memory, and fluent, appropriate speech. Cranial Nerves: I: Olfactory not tested. II: Visual acuity normal, no visual field deficit noted with confrontation. III,IV: Normal pupillary reflexes & intact extraocular movements without nystagmus. V,: Intact symmetrical facial sensation. VII: Intact symmetrical facial motor movement VIII: Hearing intact. IX,X: Intact gag, swallow, & normal voice. XI: Sternocleidomastoid, trapezius function intact. XII: Tongue midline with normal movements. L'hermitte's Sign: Negative / absent Spurling'Sign: Absent bilaterally. Cubital percussion test: Absent bilaterally. Neely-Tinel sign - Carpal region: Absent bilaterally. Straight Leg Raising: Absent bilaterally. Crossed straight leg raise: negative O8 Thrust: positive Compress: positive KEANU: positive MOTOR EXAM (0-5/5, N/T) UPPER EXTREMITY Shoulder Abduction Biceps Triceps Wrist Extension Hand Intrinsics Linoleum Tile Floor Layer Right 5/5 5/5 5/5 5/5 5/5 5/5 Left 5/5 5/5 5/5 5/5 5/5 5/5 LOWER EXTREMITY Hip Flexion Knee Extension Knee Flexion DF PF EHL FHL Right 5/5 5/5 5/5 5/5 5/5 5/5 5/5 Left 4/5 5/5 5/5 4/5 4/5 5/5 5/5 REFLEXES(0-4/2, NT)Upper ExtremityLower Extremity Right 2 2 Left 2 2 Pathological Reflexes RIGHT LEFT Neely's Absent Absent Clonus Absent Absent Babinski Absent Absent # Indicates mechanical impairment Muscle appearance: Symmetrical, without signs of atrophy or dystrophy. Sensory system (0-4, N/T) Test type RU JAMILAH RL LL Joint-Position 2 2 2 2 Vibration 2 2 2 2 Pain & LT sense 2 2 2 2 Dermatomal Deficit: None None None None Gait and Functional Evaluation: Ambulatory aids:Cane Romberg's test:Intact bilaterally Toe heel walk / heel-toe walk intact while maintaining satisfactory balance? No Squatting/straightening w/o assistance to a min of 60 degree knee flexion? No Single leg stance:intact Trendelenburg sign negative bilaterally Hand and finger dexterity intact bilaterally?No Disdiadochokinesis examination negative bilaterally? No RADIOGRAPHIC STUDIES: No new x-rays completed in office today. CT [facility] at [facility] from11/30/2022 of LumbarSpine: MRI scancompleted [facility] from12/09/2022 of LumbarSp ine: IMPRESSION: It was my pleasure to have seen and examined Areli. I reviewed the patient's clinical syndrome, physical findings, and imaging studies during the appointment today. It is my impression that the patient has a diagnosis of. 1. Left sacroiliitis I outlined the natural course history without intervention and various interventional options. PLAN: Based on my findings I suggest the following course of action: -I have recommended treatment in the form of two diagnostic left SI joint injections to be completed 6 weeks apart. The patient is in agreement with this treatment plan at this time and will follow-up proceeding both injections. - I have sent prescriptions to the patient's pharmacy today for Gabapentin 300 mg and a 4 mg Medrol Dosepak. -Advised patient to continue with supplements, health maintenance, and home exercise programs. Patient expressed understanding and will continue with these modalities. - Ambulate daily - Take medications as directed - Ice and rest for pain and swelling control. Spine Surgery Risk Review Ms. Yarbrough is presenting for evaluation of low back and left lower extremity pain, left lower extremity numbness and tingling. It was my pleasure to have seen and examined Ms. Yarbrough. In our visit today we have had a chance to go over subjective complaints, physical examination findings and treatments including the natural course history without intervention and various interventional options. The patients imaging demonstrates: CT [facility]: On physical exam, Ms. Yarbrough demonstrates: continued pain throughout the low back that radiates down into the buttocks and left lower extremity with a sharp, shooting quality. She reports worsening numbness and tingling throughout the left lower extremity. She states her pain persists mostly around the posterior aspect of the left leg. The patient notes that all of her symptoms have worsened significantly since she was last evaluated in office approximately 1 month ago. The patient states her symptoms are now exacerbated by all activity, making it very difficult for her to complete any of her daily activities. The patient reports experiencing severe sleep disturbances related to her ongoing pain and associated symptoms. The patient notes that her symptoms have started to become intractable. I have explained to the patient that as their condition progresses it will cause further neurological deficits and eventual paralysis. Based on the patients imaging, physical exam, and the rapid progression and disabling nature of their symptoms, at this time I recommend surgery in the form of a: Left SI joint injections, x2. I discussed the risk and benefits of this procedure at length with Ms. Yarbrough. The patient agreed to considered pursuing the procedure abovementioned. Prior to surgery, she should follow up with her PCP (Cardio, ID, IM etc) for clearance. Questions were invited and answered, and the patient wishes to proceed as outlined below. Currently, I am recommendin.Left SI joint injections, x2 2.Follow up with PCP for surgical clearance 3.Review of surgical risks and benefits as well as an educational packet on the proposed surgical procedure. Risks: All surgical procedures come with inherent risks, including those related to positioning, anesthesia, intraoperative findings, and postoperative complicati ons. It is important to understand that surgery does not come with any guarantee of a successful outcome as complications and adverse events are always possible. The patient was given a handout in office today discussing the surgical procedure and risks associated with the intervention, both of which were discussed with the patient. These risks include but are not limited to the following: * Experiencing same, different or even worse symptoms in back, neck, arms, or legs compared to before surgery. Requiring further surgery or other forms of treatment presently or at some time in the future at same or other levels of the intended spine surgery. On an extreme but fortunately relatively rare basis severe complication such as blindness, stroke, heart attack, temporary and/or permanent nerve injury, paralysis, coma, or may occur, sometimes without known explanation. Surgical complications may include but are not limited to risk of infection, fluid accumulation in the surgical dissection site, including a seroma or hematoma, that requires additional surgery, wound drainage, bleeding, new numbness or weakness, vision changes/loss, spinal fluid leakage, non-healing and/or infected incision, headaches, difficulty or inability to swallow, hoarseness, hemopneumothorax, pneumothorax, impotence, retrograde ejaculation, vaginal dryness; injury to nerves, spinal cord, blood vessels, lymphatics or other vital organs (i.e., bowel injury, injury to the great vessels); heterotopic bone formation; complications related to the hardware such as screws, rods, cages including misplaced hardware, device failure, instrumentation at the wrong spine level, hardware fracture/breakage, or hardware loosening; vertebral failure of the spinal column above or below the newly placed hardware; retained surgical instrumentations or devices and the need for further surgery. * Medical risks of the planned spine surgery include but are not limited to generalized Infections to the whole body or local areas outside of the surgical site (sepsis), heart attack, bleeding, anaphylaxis, meningitis, seizure, epilepsy, hearing loss, burn orona, laceration of the head or other areas of the body, bruising, hypersensitivity of the skin, bladder over distension; allergic reaction; shoulder injury related to positioning; fat, blood and air clots to other areas of the body like heart, lungs, brain; failure of internal organs such as lungs, kidneys, liver and excessive bleeding. If blood transfusions are necessary, note that transfusions may cause intolerance reactions such as anaphylaxis or other complex reactions. Despite best efforts, the results of spine surgery might not heal in terms of bone, soft tissues such as skin, fascia, ligaments, and joints. Additionally, in order to achieve best possible results, spine surgery may be carried out beyond the initially planned levels and involve decompression, fusion including insertion of hardware at levels other than the original intended area of surgical interest change some portions of the procedure in order to ensure the best possible outcomes. With spine surgery and spinal fusion, there are different off label uses of instrumentation (devices, implants and hardware) as well as biological substances (bone morphogenic proteins, demineralized bone matrix) as well as using extra bone from allograft sources (i.e. cadaver bone) or autograft (iliac crest bone, ribs, or the spine itself). The patient has been given information about these practices and their inherent risks and benefits. [facility] is an educational center that serves as a training facility for neurosurgical and orthopedic [employer] and Nursing students. Physician assistants are medically trained surgical providers who function in the outpatient, inpatient, and operating room setting under the direct supervision of the attending surgeon. [facility] has multiple operating rooms with single and overlapping rooms running daily. They currently function under the required guidelines as produced by the [facility] Finance Committee with regards to the overlapping rooms and will continue to comply with changes to this policy as they occur. The requirements include and are complied with as follows: (1) the critical portions of the overlapping rooms will not occur at the same time, (2) the attending physician will be physically present during the critical portions of the procedure and immediately available during the entire case, and (3) a back-up attending is designated should the primary attending not be immediately available. The patient has had a chance to review all the listed information, has been given print outs detailing this information, and has had all his/her questions answered to their satisfaction. It was my pleasure to have seen and examined Ms. Yarbrough. In our visit today we have had a chance to go over my understanding of our patient's current condition, the natural course history without intervention and various interventional options. Questions were invited and answered, and the patient wishes to proceed as outlined above. I have seen and examined the patient for 25 minutes and we have spent more than 50% of the time in repeat and detailed counseling about the patient's condition, its natural course history with out and as much as can be predicted with surgery and re-review of various surgical treatment options. In conclusion, Ms. Yarbrough requested we proceed with the above suggested surgery and are willing to accept risks and limitations of the suggested surgery as nature of the disease process and our best attempts at treatment for the condition. Thank you again for allowing us to be part of your patient's care. Please don't hesitate to contact me if you have any further questions. Signed and authenticated by: [employer] "C:\\\\Program Files (x86)\\\\Deborason\\\\Practice Partner\\\\[id number].PNG" \\d Jarred Ramsay DO [facility] Complex and Minimally Invasive Spine Surgery [address] [place] [address] Follow- up: After injections (x2 left SI joint injections) Patient Education: (Informational booklet, instructions, etc) given at today's appointment: Yes .ED:Patient Education: Y Medications Reviewed: YES In our visit today Ms. Yarbrough and I have had a chance to go over my understanding of the patient's current condition, the natural course history without intervention and various interventional options. Questions were invited and answered, and the patient wishes to proceed as outlined above. I will be sure to keep you updated afterMsKaty Yarbrough returns here for further follow-up. Thank you again for your referral. Please do not hesitate to contact me if you have any further questions. Signed and authenticated by: Jarred Ramsay DO [facility] and Minimally Invasive Spine Surgery [address] [place], [place] [id number] This message is confidential, intended only for the named recipient(s) and may contain information that is privileged or exempt from disclosure under applicable law. If you are not the intended recipient(s), you are notified that the dissemination, distribution or copying of this information is strictly prohibited. If you received this message in error, please notify the sender then delete this message. Patient verbalizes understanding of the information discussed. The above note was initiated by Mary Haynes, physician recording delinquent tax collector assistant for Dr. Jarred Ramsay. This note has been reviewed by Dr. Ramsay, who has made his personal changes and impressions for this document. CC: Raymundo Silvestre M.D. 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 History of Any Multi-Drug Resistant Organisms: None Reported Past Surgical History: Bariatric Surgery, Cholecystectomy, Hysterectomy, Joint Replacement Additional Past Surgical History / Comment(s): bilateral knee replacement, vincent hip replacement, PAIN CLINIC PROCEDURE BILAT CATARACT REMOVED and crystal lens implants inserted,lap band x2-fluid present Past Anesthesia/Blood Transfusion Reactions: No Reported Reaction Additional Past Anesthesia/Blood Transfusion Reaction / Comment(s): no hx blood transfusion Past Psychological History: Depression Smoking Status: Former smoker Past Alcohol Use History: None Reported Additional Past Alcohol Use History / Comment(s): QUIT SMOKING 30 YEARS AGO Past Drug Use History: None Reported - Past Family History Mother Family Medical History: Cancer, Pulmonary Embolus Additional Family Medical History / Comment(s): breast cancer-did not pass away with cancer Father Family Medical History: Cancer Additional Family Medical History / Comment(s): bladder cancer/prostate cancer,kidney removed-did not pass away of cancer Medications and Allergies Home Medications Medication Instructions Recorded Confirmed Type Potassium Chloride [Klor-Con 20] 20 meq PO DAILY 12/09/16 01/02/23 History buPROPion HCL [buPROPion HCL SR] 150 mg PO BID 12/09/16 01/02/23 History Cyclobenzaprine [Flexeril] 5 mg PO BID 10/18/18 01/02/23 History Pregabalin [Lyrica] 75 mg PO BID 10/18/18 01/02/23 History Cranactin 1 tab PO DAILY 11/29/18 01/02/23 History Cyanocobalamin (Vitamin B-12) 1,000 mcg PO DAILY 11/29/18 01/02/23 History [Vitamin B-12] allopurinoL [Zyloprim] 300 mg PO DAILY 11/29/18 01/02/23 History busPIRone HCL 15 mg PO BID 11/29/18 01/02/23 History Bisoprolol [Zebeta] 5 mg PO DAILY 10/06/21 01/02/23 History Colchicine 0.6 mg PO DAILY 10/06/21 01/02/23 History Escitalopram [Lexapro] 10 mg PO DAILY 10/06/21 01/02/23 History Levothyroxine Sodium 100 mcg PO DAILY 10/06/21 01/02/23 History Omeprazole 40 mg PO DAILY 10/06/21 01/02/23 History Tart [place] 50 mg PO DAILY 10/06/21 01/02/23 History Aspirin 81 mg PO DAILY 06/07/22 01/02/23 History Furosemide [Lasix] 40 mg PO DAILY 10/05/22 01/02/23 History calcitrioL [Calcitriol] 0.25 mcg PO DIRECTED 10/05/22 01/02/23 History Allergies Allergy/AdvReac Type Severity Reaction Status Date / Time surgical glue AdvReac Unknown Uncoded 01/02/23 13:29 Physical Examination Osteopathic Statement: *. No significant issues noted on an osteopathic structural exam other than those noted in the History and Physical/Consult.
[2023-01-03 06:51] VITALS: TEMP 97.5
[2023-01-03] MEDS ORDERED: IOPAMIDOL M200 10 ML VIAL INJ ONE (07:10)
[2023-01-03] MEDS ORDERED: LIDOCAINE 2%-EPI 1:100,000 20 ML VIAL SQ ONE (07:10)
[2023-01-03] MEDS ORDERED: BUPIVACAINE (PF) 0.5% 30 ML VIAL SQ ONE (07:10)
[2023-01-03] MEDS ORDERED: methylPREDNISolone ACETATE 40 MG/ML 1 ML VIAL INTRAARTIC ONE (07:11)
[2023-01-03 07:23] VITALS: RESP 15
[2023-01-03 07:39] VITALS: BP 121/72; PULSE 76
--- NOTE | 2023-01-03 07:52 | P.OP ---
Date of Procedure: 01/03/23 Preoperative Diagnosis: 1. LEFT SIJ OA, DEGEN 2. LOW BACK PAIN Postoperative Diagnosis: 1. LEFT SIJ OA, DEGEN 2. LOW BACK PAIN Procedure(s) Performed: 1. LEFT SIJ INJECTION UNDER FLUOROSCOPIC GUIDANCE Anesthesia: local Surgeon: Jarred Ramsay Estimated Blood Loss (ml): 2 IV fluids (ml): 0 Urine output (ml): 0 Pathology: none sent Condition: stable Disposition: same day Indications for Procedure: Ms. Yarbrough is presenting for evaluation of low back and left lower extremity pain, left lower extremity numbness and tingling. It was my pleasure to have seen and examined Ms. Yarbrough. In our visit today we have had a chance to go over subjective complaints, physical examination findings and treatments including the natural course history without intervention and various interventional options. The patients imaging demonstrates: DEGENERATIVE CHANGES LUMBAR AND SIJ. On physical exam, Ms. Yarbrough demonstrates: continued pain throughout the low back that radiates down into the buttocks and left lower extremity with a sharp, shooting quality. She reports worsening numbness and tingling throughout the left lower extremity. She states her pain persists mostly around the posterior aspect of the left leg. The patient notes that all of her symptoms have worsened significantly since she was last evaluated in office approximately 1 month ago. The patient states her symptoms are now exacerbated by all activity, making it very difficult for her to complete any of her daily activities. The patient reports experiencing severe sleep disturbances related to her ongoing pain and associated symptoms. The patient notes that her symptoms have started to become intractable. I have explained to the patient that as their condition progresses it will cause further neurological deficits and eventual paralysis. Based on the patients imaging, physical exam, and the rapid progression and disabling nature of their symptoms, at this time I recommend surgery in the form of a: Left SI joint injections, x2. I discussed the risk and benefits of this procedure at length with Ms. Yarbrough. The patient agreed to considered pursuing the procedure abovementioned. Prior to surgery, she should follow up with her PCP (Cardio, ID, IM etc) for clearance. Questions were invited and answered, and the patient wishes to proceed as outlined below. Currently, I am recommendin.Left SI joint injections, x2 Description of Procedure: The patient was seen and examined in the preoperative area. All preoperative protocols were followed. Informed consent was obtained risks and benefits of the procedure were discussed at length. Risks including bleeding infection damage to the surrounding tissue and risk of reoperation were discussed with the patient. Risk of anesthesia up to and including was a discussed with the patient. These are outlined in the risk review. They were willing to accept these risks and all of the risks of surgery. The patient was given a weight- based dose of antibiotics in the form of none. The patient was seen and evaluated by the anesthesia team who deemed them fit for surgery. The site was marked, the patient was willing to proceed with the procedure. The patient was transferred to the operative suite by the Department of anesthesia. The patient was transferred to a [prone Josiah table very carefully]. All bony prominences including wrists, elbows, axilla, chest, hips, and thighs, and feet were padded very well. Special attention was paid to the genitalia and these were padded accordingly. SCDs were placed on bilateral lower extremities and were connected. Arms were well padded and placed [on arm boards up and out in the 90/90 position]. Once in position, again we confirmed good ventilation capabilities and that lines were running appropriately. The p atient's lumbopelvicspine was then exposed. 1010s were placed outlining the incision site. Standard alcohol was used to clean the incision site and allowed to dry. C-arm was used to biomark the patient and confirm level for incision which was marked with a skin marker. Operative briefing was performed with all teams and everyone in agreement to proceed. The patient was then prepped and draped in a normal sterile fashion. Timeout was then performed and all parties were in agreement with the procedure to be performed. C-arm was then used to localize and biplanar fluoroscopy the left SI joint. A mixture of Marcaine and lidocaine was placed within the skin for anesthetic. An 18-gauge needle was then introduced in the left SI joint and confirmed to be in position with fluoroscopic guidance and injection of Isovue. Once confirmation a mixture of local anesthetic along with Depo-Medrol was placed within the left SI joint without incident. The needle was withdrawn the area was cleaned and dressed with a Band-Aid. The patient was transferred back to their hospital bed atraumatically. Patient tolerated the procedure very well with no complications. They were transferred to the postoperative care unit in stable condition.
--- NOTE | 2023-01-03 08:24 | FL ---
Fluoroscopy History: LEFT SI JT LT SI joint injection with [place]. 5 sec fluoro time. 1.7420 DAP.
== END 2023-01-03 07:39 | disposition home or self-care (01) ==
LOC: OR 06:06
PROVIDERS: ATTEND Orthopaedic Surgery
DX: M46.1 Sacroiliitis, not elsewhere classified (principal); I10 Essential (primary) hypertension; K21.9 Gastro-esophageal reflux disease without esophagitis; E07.9 Disorder of thyroid, unspecified; Z86.16 Personal history of COVID-19; Z90.710 Acquired absence of both cervix and uterus; Z90.49 Acquired absence of other specified parts of digestive tract; Z96.653 Presence of artificial knee joint, bilateral; Z87.891 Personal history of nicotine dependence; Z80.3 Family history of malignant neoplasm of breast; Z79.899 Other long term (current) drug therapy
CPT/HCPCS: 27096; J1030; Q9966; J0665

== ENCOUNTER 2023-02-14 06:54 | Day surgery (SDC) | payer MEDICARE ==
[2023-02-09 11:38] VITALS: BMI 36.1
--- NOTE | 2023-02-14 06:54 | P.HPOR ---
History of Present Illness H&P Date: 02/03/23 .D:Date: 02/03/23 : 04:46pm .T:Title: [facility] Date of :[birth year] R14 Allergies: Age: 72 year Height: 5'6" Weight: 199 lbs BP:125/81 BMI: 32.12 kg/m2 Occupation: Retired VAS: 7 CHIEF COMPLAINT: S/P left SI joint injection DOI:N/A DOS:01/03/23 Post Op Week: 4 weeks HISTORY: Ms. Yarbrough returns to the office for a post-operative evaluation following their Left SI joint injection. Patient reports 100% relief from this injection which lasted 2 days. She has her second injection scheduled for 02/14/23. Today patient reports pain in her low back and lower extremities which she describes as a constant dull ache. Patient states she has had 2 falls since with one being on 01/25/23 and the other being on 01/29/23.Overall the patient has seen improvement since the injection. Patient is having moderate sleep disturbances as well. For their symptoms, the patient has been taking Tylenol and Aspirin. Otherwise the patient is very happy with the progress they have made and have no acute concerns at this time. denies any f/c/sob/cp, no incision concerns, no bladder or bowel retention/incontinence, no perineal numbness/tingling, and ambulates independently. The patient's past medical history; past surgical history; family history; medicines; allergies and social history have been reviewed and are as stated elsewhere in the chart. 16 points review of systems completed and as stated in HPI, all other systems reviewed are negative. PHYSICAL EXAM: -Patient is alert and oriented 3 appears well-nourished well-hydrated is in no acute distress. They do not appear septic. -On exam the patient has no tenderness to palpation of their thoracic or lumbar spine. There is no edema or ballottement sign. -Upper extremities show 5/5 strength in all major muscle groups. -Lower extremities with 5 out of 5 strength in all major muscle groups -There is FROM that is painless of the b/l UE and LE in all major joints. -They are intact to light touch sensation in L2 to S1 nerve distribution as well as the C5-T1 distribution. -DTRs 2/4 all upper and lower -Patient has palpable distal pulses in all four extremeties -Compartments are soft and compressible. -Neg Neely's -No Clonus -Neg Babinski -Neg Angela's -No tensioning signs. -Cranial nerves II through XII are grossly intact. -Overall alignment is well-maintained in the sagittal coronal planes. . Surgical incision: Looks good, no sign of any infection, no drainage, EEE, edema, or ecchymosis. No fevers or chills. RADIOGRAPHS: No new xrays taken today ASSESSMENT: 1. Left sacroiliitis PLAN: All options were reviewed today, we decided the best course of action would be: - Second left SI joint injection scheduled for 02/14/23 -Advised patient to continue with supplements, health maintenance, and home exercise programs. Patient expressed understanding and will continue with these modalities. -Ambulate daily -Take pain medications and post op medications as needed and as directed -Ice and rest for pain and swelling control. Follow-up: Post procedure Patient Education: (Informational booklet, instructions, etc) given at today's appointment: Yes .ED:Patient Education: Y Medications Reviewed: YES Attestation: In our visit today Ms. Yarbrough and I have had a chance to go over my understanding of the patient's current condition, the natural course history without intervention and various interventional options. Questions were invited and answered, and the patient wishes to proceed as outlined above. I will be sure to keep you updated afterMs. Yarbrough returns here for further follow-up. Thank you again for your referral. Please do not hesitate to contact me if you have any further questions. Signed and authenticated by: Jarred Garnett [facility] [address] [place] [id number] This message is confidential, intended only for the named recipient(s) and may contain information that is privileged or exempt from disclosure under applicable law. If you are not the intended recipient(s), you are notified that the dissemination, distribution or copying of this information is strictly prohibited. If you received this message in error, please notify the sender then delete this message. Patient verbalizes understanding of the information discussed. The above note was initiated by Tal Winslow, physician recording library serials assistant for Dr. Jarred Ramsay. This note has been reviewed by Dr. Ramsay, who has made his personal changes and impressions for this document. CC: Raymundo Silvestre M.D. 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 RT HIP INCISION SPLIT OPEN POST RT DOREEN History of Any Multi-Drug Resistant Organisms: None Reported Past Surgical History: Bariatric Surgery, Cholecystectomy, Hysterectomy, Joint Replacement Additional Past Surgical History / Comment(s): bilateral knee replacement, vincent hip replacement, PAIN CLINIC PROCEDURE, BILAT CATARACT REMOVED and crystal lens implants inserted,lap band x2-fluid present finger nails turn green when takes abx Past Anesthesia/Blood Transfusion Reactions: No Reported Reaction Additional Past Anesthesia/Blood Transfusion Reaction / Comment(s): no hx blood transfusion Past Psychological History: Depression Smoking Status: Former smoker Past Alcohol Use History: None Reported Additional Past Alcohol Use History / Comment(s): QUIT SMOKING 30 YEARS AGO Past Drug Use History: None Reported - Past Family History Mother Family Medical History: Cancer, Pulmonary Embolus Additional Family Medical History / Comment(s): breast cancer-did not pass away with cancer Father Family Medical History: Cancer Additional Family Medical History / Comment(s): bladder cancer/prostate cancer,kidney removed-did not pass away of cancer Medications and Allergies Home Medications Medication Instructions Recorded Confirmed Type Potassium Chloride [Klor-Con 20] 20 meq PO DAILY 12/09/16 02/09/23 History buPROPion HCL [buPROPion HCL SR] 150 mg PO BID 12/09/16 02/09/23 History Cyclobenzaprine [Flexeril] 5 mg PO BID 10/18/18 02/09/23 History Pregabalin [Lyrica] 75 mg PO BID 10/18/18 02/09/23 History Cranactin 1 tab PO DAILY 11/29/18 02/09/23 History Cyanocobalamin (Vitamin B-12) 1,000 mcg PO DAILY 11/29/18 02/09/23 History [Vitamin B-12] allopurinoL [Zyloprim] 300 mg PO DAILY 11/29/18 02/09/23 History busPIRone HCL 15 mg PO BID 11/29/18 02/09/23 History Bisoprolol [Zebeta] 5 mg PO DAILY 10/06/21 02/09/23 History Colchicine 0.6 mg PO DAILY 10/06/21 02/09/23 History Escitalopram [Lexapro] 10 mg PO DAILY 10/06/21 02/09/23 History Levothyroxine Sodium 100 mcg PO DAILY 10/06/21 02/09/23 History Omeprazole 40 mg PO DAILY 10/06/21 02/09/23 History T[place] 50 mg PO DAILY 10/06/21 02/09/23 History Aspirin 81 mg PO DAILY 06/07/22 02/09/23 History Furosemide [Lasix] 40 mg PO DAILY 10/05/22 02/09/23 History calcitrioL [Calcitriol] 0.25 mcg PO DIRECTED 10/05/22 02/09/23 History Allergies Allergy/AdvReac Type Severity Reaction Status Date / Time surgical glue AdvReac Unknown Uncoded 02/09/23 11:14 Physical Examination Osteopathic Statement: *. No significant issues noted on an osteopathic structural exam other than those noted in the History and Physical/Consult. Assessment and Plan Plan: Risks: All surgical procedures come with inherent risks, including those related to positioning, anesthesia, intraoperative findings, and postoperative complications. It is important to understand that surgery does not come with any guarantee of a successful outcome as complications and adverse events are always possible. The patient was given a handout in office today discussing the surgical procedure and risks associated with the intervention, both of which were discussed with the patient. These risks include but are not limited to the following: Experiencing same, different or even worse symptoms in back, neck, arms, or legs compared to before surgery. Requiring further surgery or other forms of treatment presently or at some time in the future at same or other levels of the intended spine surgery. On an extreme but fortunately relatively rare basis severe complication such as blindness, stroke, heart attack, temporary and/or permanent nerve injury, paralysis, coma, or may occur, sometimes without known explanation. Surgical complications may include but are not limited to risk of infection, fluid accumulation in the surgical dissection site, including a seroma or hematoma, that requires additional surgery, wound drainage, bleeding, new numbness or weakness, vision changes/loss, spinal fluid leakage, non-healing and/or infected incision, headaches, difficulty or inability to swallow, hoarseness, hemopneumothorax, pneumothorax, impotence, retrograde ejaculation, vaginal dryness; injury to nerves, spinal cord, blood vessels, lymphatics or other vital organs (i.e., bowel injury, injury to the great vessels); heterotopic bone formation; complications related to the hardware such as screws, rods, cages including misplaced hardware, device failure, instrumentation at the wrong spine level, hardware fracture/breakage, or hardware loosening; vertebral failure of the spinal column above or below the newly placed hardware; retained surgical instrumentations or devices and the need for further surgery. Medical risks of the planned spine surgery include but are not limited to generalized Infections to the whole body or local areas outside of the surgical site (sepsis), heart attack, bleeding, anaphylaxis, meningitis, seizure, epilepsy, hearing loss, burn orona, laceration of the head or other areas of the body, bruising, hypersensitivity of the skin, bladder over distension; allergic reaction; shoulder injury related to positioning; fat, blood and air clots to other areas of the body like heart, lungs, brain; failure of internal organs such as lungs, kidneys, liver and excessive bleeding. If blood transfusions are necessary, note that transfusions may cause intolerance reactions such as anap hylaxis or other complex reactions. Despite best efforts, the results of spine surgery might not heal in terms of bone, soft tissues such as skin, fascia, ligaments, and joints. Additionally, in order to achieve best possible results, spine surgery may be carried out beyond the initially planned levels and involve decompression, fusion including insertion of hardware at levels other than the original intended area of surgical interest change some portions of the procedure in order to ensure the best possible outcomes. With spine surgery and spinal fusion, there are different off label uses of instrumentation (devices, implants and hardware) as well as biological substances (bone morphogenic proteins, demineralized bone matrix) as well as using extra bone from allograft sources (i.e. cadaver bone) or autograft (iliac crest bone, ribs, or the spine itself). The patient has been given information about these practices and their inherent risks and benefits. The patient has had a chance to review all the listed information, has been given print outs detailing this information, and has had all his/her questions answered to their satisfaction. It was my pleasure to have seen and examined [Patient Name]. In our visit today we have had a chance to go over my understanding of our patient's current condition, the natural course history without intervention and various interventional options. Questions were invited and answered, and the patient wishes to proceed as outlined above. I have seen and examined the patient for 25 minutes and we have spent more than 50% of the time in repeat and detailed counseling about the patient's condition, its natural course history with out and as much as can be predicted with surgery and re-review of various surgical treatment options. In conclusion, [Patient Name] and [his/her spouse/partner] requested we proceed with the above suggested surgery and are willing to accept risks and limitations of the suggested surgery as nature of the disease process and our best attempts at treatment for the condition. Thank you again for allowing us to be part of your patient's care. Please don't hesitate to contact me if you have any further questions. Signed and authenticated by: [facility] [address] [facility], [address] [address]
[2023-02-14] MEDS ORDERED: IOPAMIDOL-370 50ML BTL MISCELLANE ONE ×2 (07:18→07:27)
[2023-02-14] MEDS ORDERED: LIDOCAINE 2%-EPI 1:100,000 20 ML VIAL SQ ONE ×2 (07:18→07:27)
[2023-02-14] MEDS ORDERED: BUPIVACAINE (PF) 0.5% 30 ML VIAL SQ ONE ×2 (07:18→07:27)
[2023-02-14] MEDS ORDERED: methylPREDNISolone ACETATE 40 MG/ML 1 ML VIAL INTRAARTIC ONE ×2 (07:20→07:27)
--- NOTE | 2023-02-14 07:36 | P.OP ---
Date of Procedure: 02/14/23 Preoperative Diagnosis: 1. LEFT SIJ OA SEVERE 2. LOW BACK PAIN Postoperative Diagnosis: 1. LEFT SIJ OA SEVERE 2. LOW BACK PAIN Procedure(s) Performed: 1. LEFT SIJ INJECTION UNDER FLOUROSCOPIC GUIDANCE Implants: NONE Anesthesia: local Surgeon: Jarred Ramsay Estimated Blood Loss (ml): 2 IV fluids (ml): 0 Urine output (ml): 0 Pathology: none sent Condition: stable Disposition: PACU Indications for Procedure: Ms. Yarbrough presents to OR today for Left SI joint injection. Patient reports 100% relief from this last injection which lasted 2 days. She has her second injection scheduled for 02/14/23. Today patient reports pain in her low back and lower extremities which she describes as a constant dull ache. Patient states she has had 2 falls since with one being on 01/25/23 and the other being on 01/29/23.Overall the patient has seen improvement since the injection. Patient is having moderate sleep disturbances as well. For their symptoms, the patient has been taking Tylenol and Aspirin. Otherwise the patient is very happy with the progress they have made and have no acute concerns at this time. denies any f/c/sob/cp, no incision concerns, no bladder or bowel retention/incontinence, no perineal numbness/tingling, and ambulates independently. risks and benefits discussed again and she is willing to proceed. Description of Procedure: Left SIJ injection The patient was seen and examined in the preoperative area. All preoperative protocols were followed. Informed consent was obtained, risks and benefits of the procedure were discussed at length. Risks including bleeding infection damage to the surrounding tissue and risk of reoperation were discussed with the patient. Risk of anesthesia up to and including was discussed with the patient. These are outlined in the risk review. They were willing to accept these risks and all of the risks of surgery. The patient was seen and evaluated by the anesthesia team who deemed them fit for surgery. The site was marked, the patient was willing to proceed with the procedure. The patient was transferred to the operative suite by the Department of anesthesia. They were then drifted off to sleep by the department anesthesia and sedation with local was performed. The patient tolerated this well. Once confirmation of lines and ventilation the patient was transferred to a prone Josiah table very carefully. All bony prominences including wrists, elbows, axilla, chest, hips, and thighs, and feet were padded very well. Special attention was paid to the genitalia and these were padded accordingly. SCDs were placed on bilateral lower extremities and were connected. Arms were well padded and placed on arm boards up and out in the 90/90 position. Once in position, again we confirmed good ventilation capabilities and that lines were running appropriately. The patient's lumbopelvic spine was then exposed. 1010s were placed outlining the incision site. Standard alcohol was used to clean the incision site and allowed to dry. C-arm was used to biomark the patient and confirm level for incision which was marked with a skin marker. Operative briefing was performed with all teams and everyone in agreement to proceed. The patient was then prepped and draped in a normal sterile fashion. Timeout was then performed and all parties were in agreement with the procedure to be performed. Biplanar fluoroscopy was used to identify the Left SI joints which were then accessed with a 18-gauge needle after anesthetic was placed into the subcutaneous tissue in the form of 1% with epinephrine of lidocaine along with a mixture of cortical percent Marcaine without epinephrine. Once there is good anesthesia and the SI joints were accessed Isovue was used to confirm within the joint space. Once this was confirmed 40 of Kenalog along with a mixture of lidocaine and Marcaine were injected into the SI joint. Patient remained stable the entire time without any radicular symptoms during the injection phase. The needles were withdrawn and the area cleaned and Band-Aids placed. The patient was transferred back to their hospital bed atraumatically. Patient was then awakened and extubated by the department of anesthesia having tolerated the procedure very well with no complications. They were transferred to the postoperative care unit in stable condition.
[2023-02-14 07:37] VITALS: PULSE 60; RESP 16
[2023-02-14 07:57] VITALS: BP 118/73
--- NOTE | 2023-02-14 08:58 | FL ---
Intraoperative/procedural fluoroscopic services were provided for left SI joint injection. Total fluo roscopy time is 1.2 seconds with a total of 2 submitted images to PACS. Total DAP 0.1782 Gycm2. Plea se see the operative note for further details.
== END 2023-02-14 07:55 | disposition home or self-care (01) ==
LOC: OR 06:54
PROVIDERS: ATTEND Orthopaedic Surgery
DX: M46.1 Sacroiliitis, not elsewhere classified (principal); I10 Essential (primary) hypertension; K21.9 Gastro-esophageal reflux disease without esophagitis; E07.9 Disorder of thyroid, unspecified; F32.A Depression, unspecified; Z86.16 Personal history of COVID-19; Z90.710 Acquired absence of both cervix and uterus; Z90.49 Acquired absence of other specified parts of digestive tract; Z98.890 Other specified postprocedural states; Z96.653 Presence of artificial knee joint, bilateral; Z96.643 Presence of artificial hip joint, bilateral; Z87.891 Personal history of nicotine dependence; Z80.3 Family history of malignant neoplasm of breast; Z79.899 Other long term (current) drug therapy; Z79.890 Hormone replacement therapy; Z79.82 Long term (current) use of aspirin
CPT/HCPCS: J1030; Q9967; J0665; G0260

== ENCOUNTER → 2023-03-08 | Outpatient (CLI) | payer MEDICARE ==
--- NOTE | 2023-03-09 10:59 | MM ---
Reason for Exam: Screening (asymptomatic). Last mammogram was performed 2 year(s) and 10 month(s) ago. Patient History: Menarche at age 12. Patient has no children. Left ovary removed at age 40. Right ovary removed at age 40. Hysterectomy at age 40. Postmenopausal. Core Biopsy on the Right side. 08/22/2017, Benign Core Biopsy on the right side. 01/10/2002, Benign Stereotactic Core Biopsy on the right side. Maternal grandmother had ovarian cancer at or over age 50. Mother had breast cancer, age 42. Risk Values: Rachelle 5 year model risk: 5.6%. NCI Lifetime model risk: 14.8%. Prior Study Comparison: 07/07/2015 Screening Mammogram, [facility]. 07/31/2017 Bilateral Screening Mammogram, [facility]. 08/09/2017 Right Diagnostic Mammogram, [facility]. 08/22/2017 Right Diagnostic Mammogram, [facility]. 05/02/2019 Bilateral Screening Mammogram, [facility]. 05/04/2020 Bilateral Screening Mammogram, [facility]. Tissue Density: The breast tissue is heterogeneously dense. This may lower the sensitivity of mammography. Findings: Analyzed By CAD. There is no suspicious group of microcalcifications or new suspicious mass in either breast. Overall Assessment: Benign, BI-RAD 2 Management: Screening Mammogram of both breasts in 1 year. . Patient should continue monthly self-breast exams. A clinical breast exam by your physician is recommended on an annual basis. This exam should not preclude additional follow-up of suspicious palpable abnormalities. Note on Rachelle scores and lifetime risk: 1. A Rachelle score greater than 3% is considered moderate risk. If this is the case, consider specialist referral to assess eligibility for a risk reducing agent. 2. If overall lifetime risk for the development of breast cancer is 20% or higher, the patient may qualify for future screening with alternating mammogram and breast MRI. Electronically signed and approved by: Rigoberto Fiore M.D. Radiologis
== END | disposition home or self-care (01) ==
LOC: RADMAMWWP 09:07
PROVIDERS: ATTEND Family Medicine
DX: Z12.31 Encounter for screening mammogram for malignant neoplasm of breast (principal); Z80.3 Family history of malignant neoplasm of breast; Z78.0 Asymptomatic menopausal state
CPT/HCPCS: 77063; 77067

== ENCOUNTER → 2023-03-15 | Outpatient (CLI) | payer MEDICARE ==
--- NOTE | 2023-03-15 12:54 | MR ---
EXAMINATION TYPE: MR pelvis wo con DATE OF EXAM: 03/15/2023 COMPARISON: Left hip 03/01/2023 radiograph HISTORY: 72-year-old female M5 4.51, low back pain into the lower extremities. TECHNIQUE: Multiplanar, multisequence images of the pelvis were obtained without IV contrast. FINDINGS: Underlying bilateral total hip arthroplasties. The metal artifact is exacerbated on the 3 Jenna magne t. Focal edematous Modic type I endplate change towards the left at L5-S1. The sacrum and SI joints appear intact as does the pubic symphysis. Alignment for the metal artifacts, no acute pelvic fracture is seen. Uterus surgically absent. There is prominent soft tissue scarring along the lateral aspect of the left greater trochanter. Ther e is moderate fatty infiltration of the lateral half of the left gluteus medius muscle. The posterosu perior insertion of the gluteus medius appears intact. The bilateral hamstrings and rectus femoris origins appear intact. Iliopsoas insertions grossly intac t. Normal course, caliber, and signal intensity of the sciatic nerves. IMPRESSION: 1. Bilateral total hip arthroplasties. The metal artifacts are exacerbated on the 3 Jenna magnet limi ting evaluation. 2. Soft tissue scarring obscures the left lateral slip gluteus medius insertion. There is moderate fa tty atrophy of the lateral portion of the gluteus medius muscle belly. Unable to exclude underlying d ysfunction of the lateral tendon insertion. The posterosuperior portion of the gluteus medius inserti on remains intact. 3. Otherwise, no specific abnormality seen.
== END | disposition home or self-care (01) ==
LOC: RADMRIMAIN 10:37
PROVIDERS: ATTEND Orthopaedic Surgery
DX: M62.572 Muscle wasting and atrophy, not elsewhere classified, left ankle and foot (principal); M54.51 Vertebrogenic low back pain; Z96.643 Presence of artificial hip joint, bilateral
CPT/HCPCS: 72195

== ENCOUNTER → 2023-05-16 | Day surgery (SDC) | payer MEDICARE ==
[2023-05-12 12:57] VITALS: BMI 36.1
[~2023-05-16] MED LIST changes: +ACETAMINOPHEN TAB 500 MG TAB PO PRN; +Acetaminophen-Codeine 300-30mg TAB ONE; +BUPIVACAINE (PF) 0.5% 30 ML VIAL SQ ONE; +DEXAMETHASONE SOD PHOSPHATE 4 MG/ML 1 ML VIAL IV ONE; +GABAPENTIN 300 MG CAP PO PRN; +GELATIN SPONGE,ABSORB (SMALL) 1 EACH SPONGE TOPICAL ONE; +GLYCOPYRROLATE 0.2 MG/ML 2 ML VIAL ONE; +HYDROmorphone 0.5 MG/0.5 ML SYRINGE IVP PRN; +LACTATED RINGERS 1,000 ML IV ONE; +LACTATED RINGERS 1,000 ML IV SCH; +LIDOCAINE 1% (10MG/ML) FOR IV START INTRADERMA PRN; +LIDOCAINE 1% INJ 10MG/ML (20 ML MDV) ONE; +LIDOCAINE 2%-EPI 1:100,000 20 ML VIAL SQ ONE; +METOCLOPRAMIDE 5 MG/ML 2 ML VIAL IVP PRN; +MIDAZOLAM 2 MG/2 ML VIAL IVP ONE; +NEOSTIGMINE 1 MG/ML 10 ML VIAL ONE; +ONDANSETRON 4 MG/2 ML VIAL IVP PRN; +PROPOFOL 10 MG/ML 20 ML VIAL IV ONE; -Pre Op ABX Message 1 EACH MISC MISCELLANE ONE; +ROCURONIUM 10 MG/ML (5 ML VIAL) IV ONE; +SUCCINYLCHOLINE CHLORIDE 200 MG/10 ML VIAL IV ONE; +THROMBIN (BOVINE) 5,000 UNIT VIAL TOPICAL ONE; +TRANEXAMIC 1,000 MG/100ML-NACL 1,000 MG in SALINE 1 100ML.BAG IVPB PRN; +TRANEXAMIC 1,000 MG/100ML-NACL PREMIX BAG ONE; +ePHEDrine 50 MG/ML 1 ML VIAL ONE; +fentaNYL (PF) 50 MCG/ML 2 ML AMP ONE
--- NOTE | 2023-05-16 06:25 | P.HPOR ---
History of Present Illness H&P Date: 05/10/23 .D:Date: 05/10/23 : 11:05am .T:Title: [facility] History and Physical Date of :[birth year] [id number]: NKDA Age: 72 year Height: 5'6" Weight: 222 lbs BP:125/81 BMI: 35.83 kg/m2 Occupation: Retired VAS: 1 Hand:Right ASSESSMENT: 1.Left SI joint osteoarthritis 2. Left lower extremity radiculopathy 3. Low back pain Spine Surgery Risk Review Ms. Yarbrough is presenting for evaluation of low back and left lower extremity pain, left lower extremity numbness and tingling. It was my pleasure to have seen and examined Ms. Yarbrough. In our visit today we have had a chance to go over subjective complaints, physical examination findings and treatments including the natural course history without intervention and various interventional options. The patients imaging demonstrates: X-Rays AP/lateral (2 views) of the Left Hip were completed at [facility] on 03/01/2023. Images reviewed by Dr. Ramsay today and demonstrate: No significant OA to account for her symptoms of SIJ pain. No fracture. No lesions. AP Pelvis: stable pelvis. SIJ sclerosis. No fracture. [facility]: Mild spondylotic changes of lumbar spine. no significant stenosis. NO areas of correlation to her SIJ pain at this time. On physical exam, Ms. Yarbrough demonstrates: A continued ache-like, burning pain throughout the low back that radates down into the left lower extremity with a sharp, shooting quality. She states that her left leg pain is associated with numbness and tingling. She notes that her symptoms have worsened significantly over the last 1 week. The patient states her symptoms worsen after prolonged standing or when going from a seated to standing position. The patient reports experiencing moderate to severe sleep disturbances related to her ongoing pain and associated symptoms. I have explained to the patient that as their condition progresses it will cause further neurological deficits and eventual paralysis. Based on the patients imaging, physical exam, and the rapid progression and disabling nature of their symptoms, at this time I recommend surgery in the form of a: Left SI joint fusion. I discussed the risk and benefits of this procedure at length with Ms. Yarbrough. The patient agreed to considered pursuing the procedure above mentioned. Prior to surgery, she should follow up with her PCP (Cardio, ID, IM etc) for clearance. Questions were invited and answered, and the patient wishes to proceed as outlined below. Currently, I am recommendin.Left SI joint fusion 2.Review of surgical risks and benefits as well as an educational packet on the proposed surgical procedure. Risks: All surgical procedures come with inherent risks, including those related to positioning, anesthesia, intraoperative findings, and postoperative complications. It is important to understand that surgery does not come with any guarantee of a successful outcome as complications and adverse events are always possible. The patient was given a handout in office today discussing the surgical procedure and risks associated with the intervention, both of which were discussed with the patient. These risks include but are not limited to the following: * Experiencing same, different or even worse symptoms in back, neck, arms, or legs compared to before surgery. Requiring further surgery or other forms of treatment presently or at some time in the future at same or other levels of the intended spine surgery. On an extreme but fortunately relatively rare basis severe complication such as blindness, stroke, heart attack, temporary and/or permanent nerve injury, paralysis, coma, or may occur, sometimes without known explanation. Surgical complications may include but are not limited to risk of infection, fluid accumulation in the surgical dissection site, including a seroma or hematoma, that requires additional surgery, wound drainage, bleeding, new numbness or weakness, vision changes/loss, spinal fluid leakage, non-healing and/or infected incision, headaches, difficulty or inability to swallow, hoarseness, hemopneumothorax, pneumothorax, impotence, retrograde ejaculation, vaginal dryness; injury to nerves, spinal cord, blood vessels, lymphatics or other vital organs (i.e., bowel injury, injury to the great vessels); heterotopic bone formation; complications related to the hardware such as screws, rods, cages including misplaced hardware, device failure, instrumentation at the wrong spine level, hardware fracture/breakage, or hardwa re loosening; vertebral failure of the spinal column above or below the newly placed hardware; retained surgical instrumentations or devices and the need for further surgery. * Medical risks of the planned spine surgery include but are not limited to generalized Infections to the whole body or local areas outside of the surgical site (sepsis), heart attack, bleeding, anaphylaxis, meningitis, se izure, epilepsy, hearing loss, burn orona, laceration of the head or other areas of the body, bruising, hypersensitivity of the skin, bladder over distension; allergic reaction; shoulder injury related to positioning; fat, blood and air clots to other areas of the body like heart, lungs, brain; failure of internal organs such as lungs, kidneys, liver and excessive bleeding. If blood transfusions are necessary, note that transfusions may cause intolerance reactions such as anaphylaxis or other complex reactions. Despite best efforts, the results of spine surgery might not heal in terms of bone, soft tissues such as skin, fascia, ligaments, and joints. Additionally, in order to achieve best possible results, spine surgery may be carried out beyond the initially planned levels and involve decompression, fusion including insertion of hardware at levels other than the original intended area of surgical interest change some portions of the procedure in order to ensure the best possible outcomes. With spine surgery and spinal fusion, there are different off label uses of instrumentation (devices, implants and hardware) as well as biological substances (bone morphogenic proteins, demineralized bone matrix) as well as using extra bone from allograft sources (i.e. cadaver bone) or autograft (iliac crest bone, ribs, or the spine itself). The patient has been given information about these practices and their inherent risks and benefits. [facility] is an educational center that serves as a training facility for neurosurgical and orthopedic [employer] and Nursing students. Physician assistants are medically trained surgical providers who function in the outpatient, inpatient, and operating room setting under the direct supervision of the attending surgeon. [facility] has multiple operating rooms with single and overlapping rooms running daily. They currently function under the required guidelines as produced by the [facility] with regards to the overlapping rooms and will continue to comply with changes to this policy as they occur. The requirements include and are complied with as follows: (1) the critical portions of the overlapping rooms will not occur at the same time, (2) the attending physician will be physically present during the critical portions of the procedure and immediately available during the entire case, and (3) a back-up attending is designated should the primary attending not be immediately available. The patient has had a chance to review all the listed information, has been given print outs detailing this information, and has had all his/her questions answered to their satisfaction. It was my pleasure to have seen and examined Ms. Yarbrough. In our visit today we have had a chance to go over my understanding of our patient's current condition, the natural course history without intervention and various interventional options. Questions were invited and answered, and the patient wishes to proceed as outlined above. I have seen and examined the patient for 25 minutes and we have spent more than 50% of the time in repeat and detailed counseling about the patient's condition, its natural course history with out and as much as can be predicted with surgery and re-review of various surgical treatment options. In conclusion, Ms. Yarbrough requested we proceed with the above suggested surgery and are willing to accept risks and limitations of the suggested surgery as nature of the disease process and our best attempts at treatment for the condition. Thank you again for allowing us to be part of your patient's care. Please don't hesitate to contact me if you have any further questions. Follow-up: Post procedure Patient Education: (Informational booklet, instructions, etc) given at today's appointment: Yes .ED:Patient Education: Y Medications Reviewed: YES In our visit today Ms. Yarbrough and I have had a chance to go over my understanding of the patient's current condition, the natural course history without intervention and various interventional options. Questions were invited and answered, and the patient wishes to proceed as outlined above. I will be sure to keep you updated afterMs. Yarbrough returns here for further follow-up. Thank you again for your referral. Please do not hesitate to contact me if you have any further questions. Signed and authenticated by: Jarred Garnett [facility] [address] [place] [id number] This message is confidential, intended only for the named recipient(s) and may contain information that is privileged or exempt from disclosure under applicable law. If you are not the intended recipient(s), you are notified that the dissemination, distribution or copying of this information is strictly prohibited. If you received this message in error, please notify the sender then delete this message. Patient verbalizes understanding of the information discussed. The above note was initiated by Mary Haynes, physician recording home health assistant for Dr. Jarred Ramsay. This note has been reviewed by Dr. Ramsay, who has made his personal changes and impressions for this document. #Orders: Lumbar 2v xray # SIGNED BY Jarred Ramsay (GOO)05/10/2023 05:47P Past Medical History Past Medical History: GERD/Reflux, Hypertension, Renal Disease, Rheumatoid Arthritis (RA), Thyroid Disorder Additional Past Medical History / Comment(s): Gout. Scarring in lungs secondary to Covid, hx Covid Nov 2021 and Mar 2022. 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 Stataes fingernails turn green when takes antibiotics. History of Any Multi-Drug Resistant Organisms: None Reported Past Surgical History: Bariatric Surgery, Cholecystectomy, Hysterectomy, Joint Replacement Additional Past Surgical History / Comment(s): Bilateral knee replacements, bilateral hip replacements, PAIN CLINIC PROCEDURE, BILATERAL CATARACTS REMOVED and crystal lens implants placed, lap band X2-fluid present, hx right hip incision splitting open after hip replacement due to reaction form surgical glue. Past Anesthesia/Blood Transfusion Reactions: No Reported Reaction Additional Past Anesthesia/Blood Transfusion Reaction / Comment(s): No hx blood transfusion. Past Psychological History: Depression Smoking Status: Former smoker Past Alcohol Use History: None Reported Additional Past Alcohol Use History / Comment(s): QUIT SMOKING 30 YEARS AGO. Past Drug Use History: None Reported - Past Family History Mother Family Medical History: Cancer, Pulmonary Embolus Additional Family Medical History / Comment(s): Breast cancer, from PE. Father Family Medical History: Cancer Additional Family Medical History / Comment(s): Bladder cancer/prostate cancer, kidney removed, from blood clot to brain. Medications and Allergies Home Medications Medication Instructions Recorded Confirmed Type buPROPion HCL [buPROPion HCL SR] 150 mg PO BID 12/09/16 05/12/23 History Cyclobenzaprine [Flexeril] 5 mg PO BID 10/18/18 05/12/23 History Pregabalin [Lyrica] 75 mg PO BID 10/18/18 05/12/23 History Cranactin 400 mg PO DAILY 11/29/18 05/12/23 History Cyanocobalamin (Vitamin B-12) 1,000 mcg PO DAILY 11/29/18 05/12/23 History [Vitamin B-12] allopurinoL [Zyloprim] 300 mg PO DAILY 11/29/18 05/12/23 History busPIRone HCL 15 mg PO BID 11/29/18 05/12/23 History Escitalopram [Lexapro] 10 mg PO QAM 10/06/21 05/12/23 History Levothyroxine Sodium 100 mcg PO QAM 10/06/21 05/12/23 History Omeprazole 40 mg PO HS 10/06/21 05/12/23 History Tart [place] 680 mg PO DAILY 10/06/21 05/12/23 History Aspirin 81 mg PO DAILY 06/07/22 05/12/23 History calcitrioL [Calcitriol] 0.25 mcg PO DIRECTED 10/05/22 05/12/23 History Anxiety/Stress Relief 500 mg PO DAILY 05/12/23 05/12/23 History Biotin 5,000 mcg PO DAILY 05/12/23 05/12/23 History Bisoprolol Fumarate 5 mg PO BID 05/12/23 05/12/23 History Cholecalciferol [Vitamin D3 (25 50 mcg PO DAILY 05/12/23 05/12/23 History Mcg = 1000 Iu)] Cranberry Fruit Extract [Cranberry] 4,200 mg PO DAILY 05/12/23 05/12/23 History [facility] Memory And Brain Support 1 tab PO DAILY 05/12/23 05/12/23 History Furosemide [Lasix] 20 mg PO DAILY 05/12/23 05/12/23 History Loratadine [Claritin] 10 mg PO QAM 05/12/23 05/12/23 History Magnesium Oxide [Magnesium] 500 mg PO DAILY 05/12/23 05/12/23 History Montelukast [Singulair] 10 mg PO QAM 05/12/23 05/12/23 History [place]-3/Dha/Epa/Fish Oil [Fish Oil 1 each PO DAILY 05/12/23 05/12/23 History 1,000 mg Softgel] Riboflavin (Vitamin B2) [Vitamin 400 mg PO DAILY 05/12/23 05/12/23 History B-2] Super Vitamin B With Vitamin C 1 tab PO DAILY 05/12/23 05/12/23 History Zinc Gluconate [Zinc] 50 mg PO DAILY 05/12/23 05/12/23 History Allergies Allergy/AdvReac Type Severity Reaction Status Date / Time surgical glue AdvReac Unknown Uncoded 05/12/23 11:38 Physical Examination Osteopathic Statement: *. No significant issues noted on an osteopathic structural exam other than those noted in the History and Physical/Consult.
--- NOTE | 2023-05-16 09:24 | P.OP ---
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 Yarbrough is presenting for evaluation of low back and left lower extremity pain, left lower extremity numbness and tingling. It was my pleasure to have seen and examined Ms. Yarbrough. In our visit today we have had a chance to go over subjective complaints, physical examination findings and treatments including the natural course history without intervention and various interventional options. The patients imaging demonstrates: X-Rays AP/lateral (2 views) of the Left Hip were completed at [facility] on 03/01/2023. Images reviewed by Dr. Ramsay today and demonstrate: No significant OA to account for her symptoms of SIJ pain. No fracture. No lesions. AP Pelvis: stable pelvis. SIJ sclerosis. No fracture. [facility]ine: Mild spondylotic changes of lumbar spine. no significant stenosis. NO areas of correlation to her SIJ pain at this time. On physical exam, Ms. Yarbrough demonstrates: A continued ache-like, burning pain throughout the low back that radates down into the left lower extremity with a sharp, shooting quality. She states that her left leg pain is associated with numbness and tingling. She notes that her symptoms have worsened significantly over the last 1 week. The patient states her symptoms worsen after prolonged standing or when going from a seated to standing position. The patient reports experiencing moderate to severe sleep disturbances related to her ongoing pain and associated symptoms. I have explained to the patient that as their condition progresses it will cause further neurological deficits and eventual paralysis. Based on the patients imaging, physical exam, and the rapid progression and disabling nature of their symptoms, at this time I recommend surgery in the form of a: Left SI joint fusion. I discussed the risk and benefits of this procedure at length with Ms. Yarbrough. The patient agreed to considered pursuing the procedure above mentioned. Prior to surgery, she should follow up with her PCP (Cardio, ID, IM etc) for clearance. Questions were invited and answered, and the patient wishes to proceed as outlined below. Currently, I am recommendin.Left SI joint fusion Description of Procedure: Left SI fusion MIS (JEVON) The patient was seen and examined in the preoperative area. All preoperative protocols were followed. Informed consent was obtained risks and benefits of the procedure were discussed at length. Risks including bleeding infection damage to the surrounding tissue and risk of reoperation were discussed with the patient. Risk of anesthesia up to and including was a discussed with the patient. These are outlined in the risk review. They were willing to accept these risks and all of the risks of surgery. The patient was given a weight-based dose of antibiotics in the form of 2 g Ancef. The patient was seen and evaluated by the anesthesia team who deemed them fit for surgery. The site was marked, the patient was willing to proceed with the procedure. The patient was transferred to the operative suite by the Department of anesthesia. They were then drifted off to sleep by the department anesthesia and GETA was performed. The patient tolerated this well. Once confirmation of lines and ventilation the patient was transferred to a [prone Josiah table very carefully]. All bony prominences including wrists, elbows, axilla, chest, hips, and thighs, and feet were padded very well. Special attention was paid to the genitalia and these were padded accordingly. SCDs were placed on bilateral lower extremities and were connected. Arms were well padded and placed [on arm boards up and out in the 90/90 position]. Once in position, again we confirmed good ventilation capabilities and that lines were running appropriately. The patient's lumbopelvic spine was then exposed. 1010s were placed outlining the incision site. Standard alcohol was used to clean the incision site and allowed to dry. C-arm was used to biomark the patient and confirm level for incision which was marked with a skin marker. Operative briefing was performed with all teams and everyone in agreement to proceed. The patient was then prepped and draped in a normal sterile fashion. Timeout was then performed and all parties were in agreement with the procedure to be performed. Skin nicks were made over the PSIS on the right side and pins placed for [employer] Tracker system. Tracker attached and 3D Zhiem spin registered. Once confirmed to be accurate, skin incision was then made over the previously marked area over the left upper buttock region of the patient following the alar lines and mid sacral line. Blunt dissection was then taken down to the ilium. Navigated Jamshidi was then used to place a pin optimally within the SI region superiorly and into S1 body. This was then measured and drilled and a screw placed using navigated instruments. Then using the parallel guide and a navigated jamshidi, a second screw was placed in the anterior inferior position in a similar fashion this was then repeated for the inferior posterior screw. All screws had excellent purchase and were confirmed to be in good position on AP lateral inlet and outlet views. Neuro monitoring was then used to test the superior screw for L5 and S1 and these tested above 20 mA. No neuro monitoring changes during surgery no EMG. Final fluoroscopic images then confirmed good placement of hardware. We then thoroughly irrigated the wound. Deep fascia was closed with 0 Vicryl superficial closed with 2-0 Vicryl and skin closed with marivel. The wound was then cleaned and dressed with skin glue which was allowed to dry and t hen a Band-Aid. The patient was transferred back to their hospital bed atraumatically. Patient was then awakened and extubated by the department of anesthesia having tolerated the procedure very well with no complications. They were transferred to the postoperative care unit in stable condition.
[2023-05-16 09:34] VITALS: TEMP 98.1
--- NOTE | 2023-05-16 09:45 | FL ---
EXAMINATION TYPE: FL guidance operating room, XR lumbar spine 2 or 3V Intraoperative/procedural fluor oscopic services were provided. Total fluoroscopy time is 54 seconds with a total of 5 submitted imag es to PACS. Please see the operative/procedural note for further details. DAP: 4915 cGycm2
[2023-05-16 12:31] VITALS: BP 144/76; PULSE 73; RESP 16
== END | disposition home or self-care (01) ==
LOC: OR 06:01
PROVIDERS: ATTEND Orthopaedic Surgery
DX: M46.1 Sacroiliitis, not elsewhere classified (principal); M53.3 Sacrococcygeal disorders, not elsewhere classified; M47.818 Spondylosis without myelopathy or radiculopathy, sacral and sacrococcygeal region; K21.9 Gastro-esophageal reflux disease without esophagitis; I10 Essential (primary) hypertension; N28.9 Disorder of kidney and ureter, unspecified; M06.9 Rheumatoid arthritis, unspecified; E07.9 Disorder of thyroid, unspecified; M10.9 Gout, unspecified; F32.A Depression, unspecified; Z86.16 Personal history of COVID-19; Z90.49 Acquired absence of other specified parts of digestive tract; Z96.653 Presence of artificial knee joint, bilateral; Z96.643 Presence of artificial hip joint, bilateral; Z90.710 Acquired absence of both cervix and uterus; Z98.890 Other specified postprocedural states; Z80.3 Family history of malignant neoplasm of breast; Z87.891 Personal history of nicotine dependence; Z79.82 Long term (current) use of aspirin; Z79.890 Hormone replacement therapy; Z79.899 Other long term (current) drug therapy
CPT/HCPCS: 72100; 27279; 61783; C1713; J2250; J0330; J1100; J2710; J0690; J2405; J2001; J3010; J2704; J0665

== ENCOUNTER → 2023-06-23 | Outpatient (CLI) | payer MEDICARE ==
--- NOTE | 2023-06-23 15:37 | US ---
EXAMINATION TYPE: US arterial LE single level DATE OF EXAM: 06/23/2023 1:53 PM CLINICAL INDICATION: Female, 72 years old with history of I70.212 ATHSCL FALSE PASS ARTERIES OF EXTRM W I NTRMT C; History of: Smoker: Yes Hypertension: Yes Diabetic: No Hyperlipidemia: No TIA/CVA: No Previous Vascular Surgery: No CAD: No PA: No Vascular Ulcers: No Claudication: ? Due to limping from recent back surgery Gangrene: No Doppler Waveforms: Right: Multiphasic Left: Multiphasic Pulse Volume Recording: Pressure Gradients: Right Brachial Pressure: 152 Left Brachial Pressure: 165 Ankle-Brachial Indices: Right: 0.99 Left: 1.11 Toe Brachial Indices: Right: 0.57 Left: 0 - unable to obtain waveform IMPRESSION: 1. There may be occlusion of the distal digital artery on the left foot. 2. Moderate stenosis of the distal right digital artery is likely present.
== END | disposition home or self-care (01) ==
LOC: RADUSWWP 13:24
PROVIDERS: ATTEND Family Medicine
DX: I70.212 Atherosclerosis of native arteries of extremities with intermittent claudication, left leg (principal)
CPT/HCPCS: 93922

== ENCOUNTER 2023-12-05 07:26 | Day surgery (SDC) | payer MEDICARE ==
[2023-12-05] MEDS ORDERED: IOPAMIDOL M200 10 ML VIAL ONE (09:05)
[2023-12-05] MEDS ORDERED: methylPREDNISolone ACETATE 40 MG/ML 1 ML VIAL ONE (09:05)
[2023-12-05] MEDS ORDERED: ROPIVACAINE 5MG/ML 20ML VIAL ONE (09:05)
--- NOTE | 2024-01-25 10:35 | FL ---
EXAMINATION TYPE: FL guided pain mgmt statistic DATE OF EXAM: 12/26/2023 4:39 PM COMPARISON: Pre Operative Images if available both CT/MRI or plain film CLINICAL INDICATION: Female, 73 years old with history of SI JOINT INJ; TECHNIQUE: FL guided pain mgmt statistic, multiple fluoroscopic images provided for procedure. Total fluoroscopy time: 7 seconds Total submitted images to PACS: 2 DAP: 2.68 mGym2 Gycm2 uGym2 cGycm2 or equivalent. FINDINGS: Fluoroscopic images during injection for pain management demonstrate multilevel degeneration changes throughout the spine. No evidence for fracture. No acute process identified. IMPRESSION: 1. No evidence for intraoperative complication. 2. Please see the operative/procedural note for further details. [facility], , 01/25/2024 10:33 AM
== END 2023-12-05 09:55 ==
LOC: ORPAIN 07:26
PROVIDERS: ATTEND Specialist
DX: M46.1 Sacroiliitis, not elsewhere classified (principal); I10 Essential (primary) hypertension; Z88.8 Allergy status to other drugs, medicaments and biological substances; Z79.82 Long term (current) use of aspirin
CPT/HCPCS: 27096

== ENCOUNTER → 2024-04-05 | Outpatient (CLI) | payer MEDICARE ==
--- NOTE | 2024-04-05 18:46 | XR ---
EXAMINATION TYPE: XR elbow complete LT, XR forearm LT, XR hand complete LT DATE OF EXAM: 04/05/2024 1:11 PM INDICATION: Patient age:Female; 73 years old; Reason for study: S60.922AINJURY OF LEFT HAND,M79.602PAIN,M25.522PAI; [facility]. COMPARISON: None TECHNIQUE: The left elbow was examined in AP, lateral, and oblique projections. Left forearm was exam ined in lateral and AP projections. Left hand was examined in frontal, lateral, and oblique projectio ns. FINDINGS: Acute mildly displaced radial head fracture. No dislocation. Approximately 1 mm displacemen t. No other acute fractures identified. Degenerative changes of the hand at the radiocarpal joint an d first MCP joint. No evidence of joint effusion is present. Calcification of the triangular fibrocar tilage complex. IMPRESSION: 1. Acute mildly displaced radial head fracture. No dislocation. 2. Degenerative changes of the radiocarpal joint and first MCP joint. 3. Triangular fibrocartilage complex chondrocalcinosis. [facility], , 04/05/2024 1:41 PM
== END | disposition home or self-care (01) ==
LOC: RADXRMAIN 12:24
PROVIDERS: ATTEND Family Medicine
DX: S52.122A Displaced fracture of head of left radius, initial encounter for closed fracture (principal); M11.242 Other chondrocalcinosis, left hand; X58.XXXA Exposure to other specified factors, initial encounter

== ENCOUNTER → 2024-04-26 | Outpatient (CLI) | payer MEDICARE ==
--- NOTE | 2024-04-26 12:48 | XR ---
EXAMINATION TYPE: XR wrist complete LT, XR forearm LT, XR elbow complete LT DATE OF EXAM: 04/26/2024 12:37 PM INDICATION: Patient age:Female; 73 years old; Reason for study: PAIN AFTER FALL; [facility]. pain COMPARISON: Left forearm radiograph 04/05/2024 TECHNIQUE: 4 views of the left wrist. Frontal, navicular, lateral, and oblique. Left elbow was evalu ated in 3 projections. Left forearm was evaluated in 2 projections. FINDINGS: Diffuse bone demineralization. Redemonstration of mildly displaced radial head fracture. No new acute fractures. Degenerative changes of the first MCP joint. Mild soft tissue swelling of the w rist. Degenerative changes of the ulnar carpal joint. Scaphoid is intact. IMPRESSION: 1. No acute osseous pathology. 2. Redemonstration mildly displaced radial head fracture. 3. Soft tissue swelling of the wrist. [facility], , 04/26/2024 12:46 PM
== END | disposition home or self-care (01) ==
LOC: RADXRMAIN 12:02
PROVIDERS: ATTEND Family Medicine
DX: S52.122A Displaced fracture of head of left radius, initial encounter for closed fracture (principal); M25.439 Effusion, unspecified wrist; W19.XXXA Unspecified fall, initial encounter

== ENCOUNTER → 2024-05-14 | Outpatient (CLI) | payer MEDICARE ==
--- NOTE | 2024-05-14 14:44 | MM ---
Reason for Exam: Screening (asymptomatic). Last mammogram was performed 1 year(s) and 2 month(s) ago. Patient History: Menarche at age 12. Patient has no children. Left ovary removed at age 40. Right ovary removed at age 40. Hysterectomy at age 40. Postmenopausal. Core Biopsy on the Right side. 08/22/2017, Benign Core Biopsy on the right side. 01/10/2002, Benign Stereotactic Core Biopsy on the right side. Maternal grandmother had ovarian cancer, age 70. Mother had breast cancer, age 42. Risk Values: Rachelle 5 year model risk: 5.6%. NCI Lifetime model risk: 14.1%. Prior Study Comparison: 05/02/2019 Bilateral Screening Mammogram, [facility]. 05/04/2020 Bilateral Screening Mammogram, [facility]. 03/08/2023 Bilateral MG 3D screening mammo w/cad, [facility]. Tissue Density: There are scattered areas of fibroglandular density. Findings: Analyzed By CAD. Chronic nodularity right breast. 2 microclips in the right breast from prior biopsies. There is no suspicious group of microcalcifications or new suspicious mass in either breast. Overall Assessment: Benign, BI-RAD 2 Management: Screening Mammogram of both breasts in 1 year. See note below in regards to patient's increased 5 year Rachelle score. Patient should continue monthly self-breast exams. A clinical breast exam by your physician is recommended on an annual basis. This exam should not preclude additional follow-up of suspicious palpable abnormalities. Note on Rachelle scores and lifetime risk: 1. A Rachelle score greater than 3% is considered moderate risk. If this is the case, consider specialist referral to assess eligibility for a risk reducing agent. 2. If overall lifetime risk for the development of breast cancer is 20% or higher, the patient may qualify for future screening with alternating mammogram and breast MRI. [facility], , 05/14/2024 2:42 PM. Electronically signed and approved by: Rosalba Bower M.D. Radiologist
--- NOTE | 2024-05-14 15:45 | BD ---
EXAMINATION TYPE: Axial Bone Density DATE OF EXAM: 05/14/2024 CLINICAL HISTORY: 73 years old Female. ICD-10 CODE: Z78.0 POST SUNDEEP , Additional History: Height: 63 in Weight: 227 lbs FRAX RISK QUESTIONS: Family History (Parent hip fracture): yes mother History of Fracture in Adulthood: lt elbow age 72 Secondary Osteoporosis: 3. Menopause before 45: total hysterectomy age 43 RISK FACTORS HISTORY OF: Surgery to Spine/Hip(right/left): vincent hip replacements approximately age 61; l-spine surgery age 72 MEDICATIONS: Thyroid Medications: yes Which medication: Synthroid How Lon+ years EXAM MEASUREMENTS: Bone mineral densitometry was performed using the [employer] System. Bone mineral density about the L Wrist (g/cm2): 0.612 T Score values are as follows: -----Dist. R+U: -0.2 -----Prox. R+U: -1.4 -----Radius total: -1.0 Z Score values are as follows: -----Dist. R+U: 1.8 -----Prox. R+U: 0.7 -----Radius total: 1.0 Bone mineral density baseline IMPRESSION: Osteopenia (T Score between -2.5 and -1). There is slightly increased risk of fracture and the patient may be considered for treatment. Re-Screen 2-5 years. NOTE: T-SCORE=SD OF THE YOUNG ADULT MEAN. [facility], , 05/14/2024 3:43 PM
== END | disposition home or self-care (01) ==
LOC: RADMAMWWP 11:16
PROVIDERS: ATTEND Family Medicine
DX: Z12.31 Encounter for screening mammogram for malignant neoplasm of breast (principal); Z90.722 Acquired absence of ovaries, bilateral; Z78.0 Asymptomatic menopausal state; Z80.3 Family history of malignant neoplasm of breast; R92.323 Mammographic fibroglandular density, bilateral breasts; Z98.82 Breast implant status; N63.10 Unspecified lump in the right breast, unspecified quadrant
CPT/HCPCS: 77063; 77067; 77080

== ENCOUNTER → 2024-06-21 | Outpatient (CLI) | payer MEDICARE ==
--- NOTE | 2024-06-21 11:26 | XR ---
EXAMINATION TYPE: XR knee limited LT DATE OF EXAM: 06/21/2024 11:21 AM COMPARISON: None. CLINICAL INDICATION: Female, 73 years old with history of S05.12XA CONTUSION OF EYEBALL AND ORBITAL T ISSUES, pain TECHNIQUE: 2 views of the left knee are obtained. FINDINGS: Osseous structures are demineralized. There is no acute fracture/dislocation evident in th e left knee. Metallic hardware from total left knee arthroplasty is satisfactory in position. Promine nt soft tissue density suprapatellar bursa is suggestive of a large joint effusion. IMPRESSION: As above. [facility], , 06/21/2024 11:24 AM
--- NOTE | 2024-06-21 11:33 | XR ---
EXAMINATION TYPE: XR orbit complete bilateral DATE OF EXAM: 06/21/2024 COMPARISON: NONE CLINICAL INDICATION: Female, 73 years old with history of S05.12XA CONTUSION OF EYEBALL AND ORBITAL T ISSUES; TECHNIQUE: Multiple views of the bilateral orbits including Mendez and Mazariegos frontal projections a nd lateral projection FINDINGS: No acute displaced fracture of the orbital floors and shore are identified. Overlying soft tissue is unremarkable. IMPRESSION: As above. If clinical concern persists further investigation with CT exam would be power castillo. [facility], , 06/21/2024 11:25 AM
== END | disposition home or self-care (01) ==
LOC: RADXRMAIN 10:46
PROVIDERS: ATTEND Family Medicine
DX: S05.12XA Contusion of eyeball and orbital tissues, left eye, initial encounter (principal); S80.02XA Contusion of left knee, initial encounter; Z96.652 Presence of left artificial knee joint; X58.XXXA Exposure to other specified factors, initial encounter
CPT/HCPCS: 70200

== ENCOUNTER → 2024-10-04 | Outpatient (CLI) | payer MEDICARE ==
--- NOTE | 2024-10-04 14:16 | XR ---
EXAMINATION TYPE: XR shoulder complete RT DATE OF EXAM: 10/04/2024 1:40 PM COMPARISON: None. CLINICAL INDICATION: Female, 73 years old with history of R10.2 PELVIC AND PERINEAL PAIN M25.551 M25. 511, Pain TECHNIQUE: XR shoulder complete RT view(s) obtained. FINDINGS: The humeral head articulates with the glenoid. Joint space is narrowed. The acromio-clavicular junction is normal. No acute fractures or dislocations are evident. A follow up study can be performed 7-10 days from acute trauma for continued pain. MRI can be perfor med if soft tissue evaluation would be of benefit. IMPRESSION: 1. No acute osseous shoulder abnormality. [facility], , 10/04/2024 2:13 PM
--- NOTE | 2024-10-04 14:17 | XR ---
EXAMINATION TYPE: XR Hip Complete RT DATE OF EXAM: 10/04/2024 1:40 PM COMPARISON: None. CLINICAL INDICATION: Female, 73 years old with history of R10.2 PELVIC AND PERINEAL PAIN M25.551 M25. 511, pain TECHNIQUE: 2 view(s) obtained. FINDINGS: There is a right hip prosthesis with acetabular component. No acute fractures are evident. No disloca tion evident. IMPRESSION: 1. No acute osseous abnormality right hip region with right hip prosthesis. [facility], , 10/04/2024 2:15 PM
--- NOTE | 2024-10-04 14:29 | CT ---
EXAMINATION TYPE: CT pelvis wo con DATE OF EXAM: 10/04/2024 COMPARISON: None CLINICAL INDICATION: Female, 73 years old with history of R10.2 PELVIC AND PERINEAL PAIN M25.551 M25. 511; [facility], low back and pelvic pain following fall CT DLP: 776.7 mGycm Automated exposure control for dose reduction was used. FINDINGS: There are fixation screws across the left SI joint. There are bilateral hip prostheses. There is advanced degenerative disc disease at the L5-S1 level. There is marked bony neural foraminal stenosis at the L5-S1 level bilaterally. There is no acute fracture. There is no diastasis of the right SI joint or pubic symphysis. IMPRESSION: 1. No acute trauma. 2. Postsurgical changes of left SI joint and bilateral hip prostheses. 3. Advanced degenerative disc disease at the L5-S1 level. 4. Marked bony neural foraminal stenosis at the L5-S1 level bilaterally. [facility], Workstation: [id number] 10/04/2024 2:26 PM
== END | disposition home or self-care (01) ==
LOC: RADCTMAIN 13:19
PROVIDERS: ATTEND Orthopaedic Surgery
DX: R10.2 Pelvic and perineal pain (principal); M51.379 Other intervertebral disc degeneration, lumbosacral region without mention of lumbar back pain or lower extremity pain; M25.551 Pain in right hip; M25.511 Pain in right shoulder; M99.73 Connective tissue and disc stenosis of intervertebral foramina of lumbar region; Z96.643 Presence of artificial hip joint, bilateral
CPT/HCPCS: 72192; 73502

== ENCOUNTER → 2024-11-05 | Outpatient (CLI) | payer MEDICARE ==
--- NOTE | 2024-11-06 15:41 | MR ---
INDICATION: Patient age:Female; 73 years old; Reason for study: M51.360, M62.81, M54.50; [facility]. COMPARISONS: CT pelvis 10/04/2024, MR pelvis 03/15/2023, MR lumbar spine 12/09/2022, 03/12/2018, CT lum bar spine 11/30/2022, 03/17/2021, 11/25/2017. TECHNIQUE: Multi planar, multi sequence imaging was performed utilizing: T1-weighted, T2-weighted, a nd turbo inversion recovery imaging of the lumbar spine. The patient was not given contrast. FINDINGS: The lumbar vertebral bodies do have preserved heights. Grade 2 retrolisthesis of L1 on L2. Multilevel anterior osteophytosis. Postsurgical changes of the left SI joint with susceptibility art ifact limiting evaluation. Type I Modic changes involving the endplates around L5-S1 disc. Multilevel disc desiccation is present. The conus medullaris and the distal spinal cord do appear unremarkable with regards to their signal intensity and morphology. T12-L1: Disc desiccation without evidence for herniation. No significant spinal canal or neural clarence inal stenosis. L1-L2: Broad-based disc bulge with mild effacement of the anterior thecal sac. No significant spinal canal stenosis. Bilateral facet arthropathy. Moderate bilateral neural foraminal stenosis. L2-L3: Grade 1 retrolisthesis. Broad-based disc bulge with ligamentum flavum buckling and bilateral facet arthropathy. Results in mild spinal canal stenosis. Moderate bilateral neural foraminal stenosi s. L3-L4: Broad-based disc bulge with ligamentum flavum buckling and bilateral facet arthropathy. Resul ts in mild spinal canal stenosis. Mild bilateral neural foraminal stenosis. L4-L5: Broad-based disc bulge with ligamentum flavum buckling and bilateral facet arthropathy. Result s in mild spinal canal stenosis. Moderate bilateral neuroforaminal stenosis. L5-S1: Broad-based disc bulge without significant effacement of the anterior thecal sac. No significa nt spinal canal stenosis. Bilateral facet arthropathy. Severe bilateral neural foraminal stenosis. Other significant findings: None. IMPRESSION: 1. No definitive evidence for disc herniation or significant spinal canal stenosis. 2. Multilevel disc degeneration with associated osteoarthritic changes as described above. Varying d egrees of neural foraminal stenosis as described above. Overall similar to prior MRI 12/09/2022. 3. Grade 1 retrolisthesis of L2 on L3. [facility], , 11/06/2024 3:39 PM
== END | disposition home or self-care (01) ==
LOC: RADMRIMAIN 18:54
PROVIDERS: ATTEND Orthopaedic Surgery
DX: M51.360 Other intervertebral disc degeneration, lumbar region with discogenic back pain only (principal); M62.81 Muscle weakness (generalized); M43.16 Spondylolisthesis, lumbar region; M48.061 Spinal stenosis, lumbar region without neurogenic claudication
CPT/HCPCS: 72148

== ENCOUNTER → 2024-11-14 | Outpatient (CLI) | payer MEDICARE | END | disposition home or self-care (01) | LOC: LABPAT 15:52 | PROVIDERS: ATTEND Orthopaedic Surgery | DX: Z01.812 Encounter for preprocedural laboratory examination (principal); M48.061 Spinal stenosis, lumbar region without neurogenic claudication; Z22.322 Carrier or suspected carrier of Methicillin resistant Staphylococcus aureus | CPT/HCPCS: 86850; 86900; 86901; 87070 ==